=== PATIENT | male | born 1955 | race Caucasian/White ===

== ENCOUNTER 2017-11-18 10:20 | Day surgery (SDC) | payer BC ==
[~2017-11-18 10:20] MED LIST: Acetaminophen TAB* 325 MG PO PRN; Buffered Lidocaine 0.9% SYRIN* 5 ML/SYR SYRINGE INTRADERM ONE
[2017-11-18] MEDS ORDERED: Midazolam* 1 MG/ML 2 ML VIAL (2 MG) ONE (11:38)
[2017-11-18] MEDS ORDERED: fentaNYL* 50 MCG/ML 2 ML VIAL (100 MCG VIAL) ONE (11:38)
[2017-11-18] MEDS ORDERED: Lidocaine 1% MPF* 2 ML VIAL ONE (11:40)
[2017-11-18] MEDS ORDERED: Neomycin/Polymy/Dex OPHTH.OIN* 3.5 GM ONE (11:40)
[2017-11-18] MEDS ORDERED: Tetracaine 0.5% OPTH.SOL 4 ML* 1 DROP BTL ONE (11:40)
[2017-11-18] MEDS ORDERED: Tropicamide 1% OPTH.SOL* BTL ONE (11:40)
[2017-11-18] MEDS ORDERED: Phenylephrine 2.5% OPTH.SOL* 2 ML BTL ONE (11:40)
[2017-11-18] MEDS ORDERED: Ketorolac 0.5% OPHTH (NF) 0.5 % 5 ML BTL ONE (11:40)
[2017-11-18] MEDS ORDERED: Cyclopentolate 1% OPTH.SOL* 2 ML BTL ONE (11:40)
[2017-11-18] MEDS ORDERED: Metoprolol Tartrate IV* 1 MG/ML 5 ML VIAL ONE (11:49)
[2017-11-18] MEDS ORDERED: Carbachol 0.01% OPH.SOL* 1.5 ML OPHTH.SOLN ONE (12:16)
[2017-11-18 12:33] VITALS: BP 142/79
--- NOTE | 2017-11-18 15:08 | OP ---
DATE OF OPERATION/DATE OF DICTATION: 11/18/2017 - [facility] DATE OF : 1955. SURGEON: Dr. Prakash Paulino. PIPING ENGINEER: None. ANESTHESIA: Topical with intravenous sedation. PRE-OP DIAGNOSIS: Cataract, left eye. POST-OP DIAGNOSIS: Cataract, left eye. OPERATIVE PROCEDURE: Phacoemulsification and cataract extraction with posterior chamber intraocular lens implant, left eye. COMPLICATIONS: None. BLOOD LOSS: None. DESCRIPTION OF PROCEDURE: The patient was brought to the operating room and received a small amount of intravenous sedation. A drop of Tetracaine was placed in his left eye. He was prepped and draped in the usual sterile fashion for ophthalmic surgery and attention was directed to the left eye where a speculum was placed. A paracentesis was created at the 5 o'clock position and 0.1 cc of 1 percent preservative-free Lidocaine was injected into the anterior chamber followed by DisCoVisc. The eye was digitally stabilized while a 2.75 mm keratome was used to create a triplanar clear corneal incision at the 3 o'clock position. A continuous curvilinear capsulorrhexis was created with a cystotome and Utrata forceps. BSS on a cannula was used to hydrodissect the lens from the capsule. Phacoemulsification was performed in a [id number] technique to create four fragments which were removed. Residual cortical material was removed with irrigation and aspiration. DisCoVisc was used to inflate the capsular bag and an AUOOTO 16.5 diopter lens was folded and inserted into the capsular bag. DisCoVisc was removed using irrigation and aspiration. BSS on a cannula was used to hydrate the corneal stroma and seal the wound. At the end of the case the pupil was round and the lens was centered. The eye was of normal pressure and the wound was water tight. The speculum was removed and topical Maxitrol ointment was placed on the surface of the eye. The eye was closed, patched and shielded and the patient was sent to the recovery room in stable condition with post operative instructions and follow-up appointment given. [id number]/CPS #: [id number] MTDD
== END 2017-11-18 12:34 | disposition home or self-care (01) ==
LOC: OREAST 10:20
PROVIDERS: ATTEND Ophthalmology
DX: H25.12 Age-related nuclear cataract, left eye (principal); I10 Essential (primary) hypertension; Z87.891 Personal history of nicotine dependence; E78.5 Hyperlipidemia, unspecified
CPT/HCPCS: A9270-GY; J2250; J3010; J3490; V2632

== ENCOUNTER 2017-12-24 23:59 | Inpatient (IN) | payer BC ==
[2017-12-25] MEDS ORDERED: Tetan/Diph/Pertus SYR(Tdap)* 0.5 ML SYR(BOOSTRIX) use SYR IM ONE (00:12)
[2017-12-25 00:27] LABS: Hematocrit 44 % (42-52); Hemoglobin 15.3 g/dl (14.0-18.0); Mean Corpuscular HGB Conc 35 g/dl (31-36); Mean Corpuscular Hemoglobin 35 pg (27-31); Mean Corpuscular Volume 100 fL (80-94); Mean Platelet Volume 7 um3 (7.4-10.4); Platelet Count 347 10^3/ul (150-450); Red Blood Count 4.41 10^6/ul (4.0-5.4); Red Cell Distribution Width 14 % (10.5-15); White Blood Count 15.3 10^3/ul (3.5-10.8)
[2017-12-25 00:31] LABS: ABS Basophils 0 10^3/ul (0-0.2); ABS Eosinophils 0.1 10^3/ul (0-0.6); ABS Monocytes 0.9 10^3/ul (0-0.8); ABS Neutrophils 13.3 10^3/ul (1.5-7.7); ABS Nucleated RBC 0 10^3/ul; Eosinophil % 0.4 % (0-6); Lymphocyte % 6.4 % (25-47); Nucleated Red Blood Cells % 0
[2017-12-25 00:39] LABS: INR 0.97 (0.77-1.02)
[2017-12-25 00:41] LABS: EGFR Non-African American 88.6 (>60)
--- NOTE | 2017-12-25 00:56 | ED ---
Adult Trauma - HPI Summary HPI Summary: This 62-year-old male comes to the emergency department tonight by ambulance he is staying at his sister's home he turned the wrong way expecting to go into the bathroom but in fact fell down the stairs he does admit to drinking about 6 shots of alcohol tonight he believes he did not lose consciousness but he could not tell me exactly what time that the fall had happened he complains of right clavicle and left shoulder pain and forehead pain he does not complain of any neck pain chest pain abdominal pain pelvic pain or leg pain except his knees that both have abrasions on them - History of Current Complaint Chief Complaint: EDTraumaMultiple Stated Complaint: FALL Time Seen by Provider: 12/25/17 00:09 Hx Obtained From: Patient Mechanism of Injury: Fall - 1 flight of stairs Ambulatory at the Scene: N/A - Unknown if he is ambulatory at scene Loss of Consciousness: unsure Onset Severity: Moderate Current Severity: Moderate Pain Intensity: 1 Pain Scale Used: 0-10 Numeric Location: Other - He has pain in his right clavicle his left shoulder he does have some forehead pain where he does have a laceration and has abraded the skin off the front center of his forehead Aggravating Factor(s): Nothing Alleviating Factor(s): Nothing Related History: Anticoagulants - 81 mg aspirin, Alcohol Abuse - Doesn't just drinking alcohol daily states he usually does drink beer - Allergy/Home Medications Allergies/Adverse Reactions: Allergies Allergy/AdvReac Type Severity Reaction Status Date / Time MS Citalopram [From Celexa] Allergy Severe See Comment Verified 11/17/17 14:54 MS Hydrochlorothiazide Allergy Severe See Comment Verified 11/17/17 14:54 [Hydrochlorothiazide] MS Lisinopril [Lisinopril] AdvReac Intermediate Coughing Verified 11/18/17 11:06 PMH/Surg Hx/FS Hx/Imm Hx Previously Healthy: No Cardiovascular History: Reports: Hx Hypertension - controlled with meds, Other Cardiovascular Problems/Disorders - high cholesterol GI History: Reports: Hx Gastroesophageal Reflux Disease - ON MEDICATION FOR History: Reports: Other Problems/Disorders - prostate Sensory History: Reports: Hx Cataracts - left eye, Hx Contacts or Glasses - GLASSES Denies: Hx Hearing Aid Opthamlomology History: Reports: Hx Cataracts - left eye, Hx Contacts or Glasses - GLASSES Psychiatric History: Reports: Hx Anxiety - ON MEDICATION FOR - Cancer History Hx Chemotherapy: No - Surgical History Surgery Procedure, Year, and Place: REPAIR OF DETACHED RETINA - 01/2015-[facility] [place]. right eye cataract surgery with IOL and malyugin ring 2016 Hx Anesthesia Reactions: No - Immunization History Hx Pertussis Vaccination: No Immunizations Up to Date: No Infectious Disease History: No Infectious Disease History: Denies: Traveled Outside the [place] in Last 30 Days - Family History Known Family History: Positive: None - Social History Occupation: Retired Lives: Alone Alcohol Use: Daily Alcohol Amount: states he bring drinks beer daily and endorses having 6 mixed drink shots Hx Substance Use: Yes Substance Use Type: Reports: None Smoking Status (MU): Former Smoker Amount Used/How Often: 3/4 PPD X 25 YEARS Have You Smoked in the Last Year: No Review of Systems Constitutional: Negative Eyes: Negative ENT: Negative Cardiovascular: Negative Respiratory: Negative Gastrointestinal: Negative Genitourinary: Negative Positive: Arthralgia - pain left shoulder and right clavicle Skin: Other Positive: Other - multiple areas of skin abrasions face and nose both knees laceration with tissue avulsion inside the lower lip of his mouth his teeth are intact Neurological: Negative Psychological: Other Positive: Other - patient does have alcohol on breath All Other Systems Reviewed And Are Negative: Yes Physical Exam Triage Information Reviewed: Yes Vital Signs On Initial Exam: Initial Vitals Resp 12 12/25/ 00:08 Vital Signs Reviewed: Yes Appearance: Positive: Well-Appearing, Well-Nourished, Pain Distress - mild Skin: Positive: Warm, Skin Color Reflects Adequate Perfusion, Dry Head/Face: Positive: Other - Abrasion on the center of his forehead with a 4 cm last duration also has abrasions on his nose and has a skin avulsion inside of his mouth Eyes: Positive: Normal, EOMI, ODALYS, Conjunctiva Clear ENT: Positive: Normal ENT inspection, Hearing grossly normal, Pharynx normal, TMs normal, Uvula midline - Patient does havechipped front teeth but he does not report this from the accident as this is chronic for him. Negative: Nasal congestion, Nasal drainage, Tonsillar swelling, Tonsillar exudate, Trismus, Muffled voice, Hoarse voice, Dental tenderness, Sinus tenderness Neck: Positive: Supple, Nontender, No Lymphadenopathy, Other: - Cervical collar was placed by EMS for remain intact until CT is cleared Respiratory/Lung Sounds: Positive: Clear to Auscultation, Breath Sounds Present , Unable to speak in full sentences. Negative: Tracheal Deviation Cardiovascular: Positive: Normal, Pulses are Symmetrical in both Upper and Lower Extremities, S1, S2 Abdomen Description: Positive: Nontender, No Organomegaly, Soft. Negative: CVA Tenderness (R), CVA Tenderness (L), Distended, Guarding, Peritoneal Signs Bowel Sounds: Positive: Present Musculoskeletal: Positive: Pain @ - Right clavicle left shoulder both knees Neurological: Positive: Normal, Sensory/Motor Intact, Facial Symmetry, Speech Normal. Negative: Receptive Aphasia, Expressive Aphasia, Slurred Speech Psychiatric: Positive: Normal AVPU Assessment: Alert - [place] Coma Scale Best Eye Response: 4 - Spontaneous Best Motor Response: 6 - Obeys Commands Best Verbal Response: 5 - Oriented Coma Scale Total: 15 Diagnostics - Vital Signs Vital Signs Temp Pulse Resp BP Pulse Ox 12/25/17 00:30 77 15 131/66 97 12/25/17 00:10 99.2 F 82 15 118/63 98 12/25/17 00:08 12 - Laboratory Lab Results: Lab Results 12/25/17 12/25/17 12/25/17 Range/Units 00:14 00:14 00:14 WBC 15.3 H (3.5-10.8) 10^3/ul RBC 4.41 (4.0-5.4) 10^6/ul Hgb 15.3 (14.0-18.0) g/dl Hct 44 (42-52) % MCV 100 H (80-94) fL MCH 35 H (27-31) pg MCHC 35 (31-36) g/dl RDW 14 (10.5-15) % Plt Count 347 (150-450) 10^3/ul MPV 7 L (7.4-10.4) um3 Neut % (Auto) 86.8 H (38-83) % Lymph % (Auto) 6.4 L (25-47) % [place] % (Auto) 6.2 (0-7) % Eos % (Auto) 0.4 (0-6) % Baso % (Auto) 0.2 (0-2) % Absolute Neuts (auto) 13.3 H (1.5-7.7) 10^3/ul Absolute Lymphs (auto) 1.0 (1.0-4.8) 10^3/ul Absolute Monos (auto) 0.9 H (0-0.8) 10^3/ul Absolute Eos (auto) 0.1 (0-0.6) 10^3/ul Absolute Basos (auto) 0 (0-0.2) 10^3/ul Absolute Nucleated RBC 0 10^3/ul Nucleated RBC % 0 INR (Anticoag Therapy) 0.97 (0.77-1.02) Sodium 139 (133-145) mmol/L Potassium 3.9 (3.5-5.0) mmol/L Chloride 104 (101-111) mmol/L Carbon Dioxide 27 (22-32) mmol/L Anion Gap 8 (2-11) mmol/L BUN 10 (6-24) mg/dL Creatinine 0.87 (0.67-1.17) mg/dL Est GFR ( Amer) 114.0 (>60) Est GFR (Non-Af Amer) 88.6 (>60) BUN/Creatinine Ratio 11.5 (8-20) Glucose 101 H (70-100) mg/dL Lactic Acid (0.5-2.0) mmol/L Calcium 9.4 (8.6-10.3) mg/dL Total Bilirubin 0.40 (0.2-1.0) mg/dL AST 34 (13-39) U/L ALT 22 (7-52) U/L Alkaline Phosphatase 65 (34-104) U/L Troponin I 0.00 (<0.04) ng/mL Total Protein 7.5 (6.4-8.9) g/dL Albumin 4.2 (3.2-5.2) g/dL Globulin 3.3 (2-4) g/dL Albumin/Globulin Ratio 1.3 (1-3) Amylase 63 (29-103) U/L Serum Alcohol 187 H (<10) mg/dL 12/25/17 Range/Units 00:14 WBC (3.5-10.8) 10^3/ul RBC (4.0-5.4) 10^6/ul Hgb (14.0-18.0) g/dl Hct (42-52) % MCV (80-94) fL MCH (27-31) pg MCHC (31-36) g/dl RDW (10.5-15) % Plt Count (150-450) 10^3/ul MPV (7.4-10.4) um3 Neut % (Auto) (38-83) % Lymph % (Auto) (25-47) % [place] % (Auto) (0-7) % Eos % (Auto) (0-6) % Baso % (Auto) (0-2) % Absolute Neuts (auto) (1.5-7.7) 10^3/ul Absolute Lymphs (auto) (1.0-4.8) 10^3/ul Absolute Monos (auto) (0-0.8) 10^3/ul Absolute Eos (auto) (0-0.6) 10^3/ul Absolute Basos (auto) (0-0.2) 10^3/ul Absolute Nucleated RBC 10^3/ul Nucleated RBC % INR (Anticoag Therapy) (0.77-1.02) Sodium (133-145) mmol/L Potassium (3.5-5.0) mmol/L Chloride (101-111) mmol/L Carbon Dioxide (22-32) mmol/L Anion Gap (2-11) mmol/L BUN (6-24) mg/dL Creatinine (0.67-1.17) mg/dL Est GFR ( Amer) (>60) Est GFR (Non-Af Amer) (>60) BUN/Creatinine Ratio (8-20) Glucose (70-100) mg/dL Lactic Acid 3.0 H* (0.5-2.0) mmol/L Calcium (8.6-10.3) mg/dL Total Bilirubin (0.2-1.0) mg/dL AST (13-39) U/L ALT (7-52) U/L Alkaline Phosphatase (34-104) U/L Troponin I (<0.04) ng/mL Total Protein (6.4-8.9) g/dL Albumin (3.2-5.2) g/dL Globulin (2-4) g/dL Albumin/Globulin Ratio (1-3) Amylase (29-103) U/L Serum Alcohol (<10) mg/dL Result Diagrams: 12/25/17 00:14 12/25/17 00:14 Diagnostic Studies Comment: 1. Brain CT-results a brain CT- no intercranial hemorrhage. No skull fracture scalp laceration as indicated in assessment. [address] shows no fractures Lab Statement: Any lab studies that have been ordered have been reviewed, and results considered in the medical decision making process. Re-Evaluation - Re-Evaluation First Eval Change: Unchanged - no change in assessment, patient is in CT scan, case reviewed with Dr. Montero Second Eval Change: Unchanged - Patient at 30 in bed complaining of left shoulder pain Zofran and 2 mg morphine given report given to Dr. montero Adult Trauma Course/Dx - Diagnoses Provider Diagnoses: Nasal fracture, Trauma - Physician Notifications Discussed Care Of Patient With: Angely Montero - report given at 2:20 Discharge - Discharge Plan Condition: Guarded Disposition: OTHER Discharge Disposition Comment: report given to Dr. Montero at 2;20 Referrals: Fabio Ernst MD [Primary Care Provider] -
[2017-12-25] MEDS ORDERED: Morphine INJ* 2 MG/ML 1 ML CARPUJECT IV ONE (01:58)
[2017-12-25] MEDS ORDERED: Ondansetron INJ* 2 MG/ML VIAL IV ONE ×2 (01:58→04:00)
[2017-12-25] MEDS ORDERED: NS 0.9% 1000 ML* 2,000 ML IV ONE (03:14)
[2017-12-25] MEDS ORDERED: Lidocaine 2% EPI 1:200000 MPF* 20 ML VIAL ONE (03:56)
[2017-12-25] MEDS ORDERED: HYDROmorphone INJ* 2 MG/ML CARPUJECT SYRINGE IV SLOW PU ONE (04:00)
[2017-12-25] MEDS ORDERED: LORazepam TAB(*) 1 MG PO ONE (05:34)
--- NOTE | 2017-12-25 05:36 | ED ---
Edil August Stephanie, scribed for Angely Montero MD on 12/25/17 at 0522 . Progress - Progress Note Progress Note: Xray L shoulder: no fracture. Bilateral Knee XRay: no fracture. R clavicle XRay : no fracture. Pelvis XRay: no fracture. CXR reveals 22 mm *15 mm mass in the left lower lobe. Pending official reading. - Results/Orders Results/Orders: CT Maxillofacial reveals:Mildly depressed acute appearing nasal bridge fracture. Questionable old left maxillary sinus fracture. Dense left maxillary sinus contents could represent blood from trauma, or chronic or fungal sinusitis. Re-Evaluation - Re-Evaluation First Eval Change: Unchanged - no change in assessment, patient is in CT scan, case reviewed with Dr. Montero Second Eval Change: Unchanged - Patient at 30 in bed complaining of left shoulder pain Zofran and 2 mg morphine given report given to Dr. montero Course/Dx - Course Course Of Treatment: Procedure note: Lower lip laceration repair:Pt has 3 cm long 1.5 cm wide lac at the middle of the mucosa of the lower lip extending from the vrmilian boarder to the gum line. Repair using lidocain 2 % with epi. The laceration was closed in two layers. Inner layer was closed with 4 stitches. The outer layer was closed with 4 stitches. We did use Polizorb 4-0 and 3-0. There was a good alignment and hemostasis. Forehead laceration: about 3 cm lac verticle in the middle of the forehead. Repair: Closed in 2 layers. Inner layer closed using polizorb 3-0. Outer layer closed using proline 4-0. Inner layer had 3 stitches. Outerlayer had 6 stitches. Good alignment and hemostasis. ED physician reviewed the pt's his normal xray results. ED physician explained finding of CXR which showed a mass according to the reading. The pt was advised to folow up with his PCP to address the lung mass and to make sure to rule out malignancy. The pt understands and agrees. Disposition: discharge, Condition: Stable - Diagnoses Provider Diagnoses: Nasal fracture, Trauma, Lip laceration, Forehead laceration, Multiple contusions, Lung mass The documentation as recorded by the Edil ansari Stephanie accurately reflects the service I personally performed and the decisions made by Kylah orosco Abdul, MD.
[2017-12-25] MEDS ORDERED: Thiamine IV* 100 MG, Folic Acid IV* 1 MG, Multiple Vitamin IV ADULT* 10 ML in NS 0.9% 1... IV ONE (06:16)
--- NOTE | 2017-12-25 06:29 | ED ---
Edil August Stephanie, scribed for Angely Montero MD on 12/25/17 at 0627 . Progress - Progress Note Progress Note: Xray L shoulder: no fracture. Bilateral Knee XRay: no fracture. R clavicle XRay : no fracture. Pelvis XRay: no fracture. CXR reveals 22 mm *15 mm mass in the left lower lobe. Pending official reading. At 06:24: Pt was helped by staff from bed to wheelchair. The pt is tremulous and had trouble ambulating.The pt was returned into the stretcher and re-evaluated. His neuro exam is intact on the stretcher except for L UE dysmetria. Pt will be admitted for further evaluation. ED physician discussed with Dr. Guerra who accepts the pt for admission. - Results/Orders Results/Orders: CT Maxillofacial reveals:Mildly depressed acute appearing nasal bridge fracture. Questionable old left maxillary sinus fracture. Dense left maxillary sinus contents could represent blood from trauma, or chronic or fungal sinusitis. Re-Evaluation - Re-Evaluation First Eval Change: Unchanged - no change in assessment, patient is in CT scan, case reviewed with Dr. Montero Second Eval Change: Unchanged - Patient at 30 in bed complaining of left shoulder pain Zofran and 2 mg morphine given report given to Dr. montero Course/Dx - Course Course Of Treatment: Procedure note: Lower lip laceration repair:Pt has 3 cm long 1.5 cm wide lac at the middle of the mucosa of the lower lip extending from the vrm[place] boarder to the gum line. Repair using lidocain 2 % with epi. The laceration was closed in two layers. Inner layer was closed with 4 stitches. The outer layer was closed with 4 stitches. We did use Polizorb 4-0 and 3-0. There was a good alignment and hemostasis. Forehead laceration: about 3 cm lac verticle in the middle of the forehead. Repair: Closed in 2 layers. Inner layer closed using polizorb 3-0. Outer layer closed using proline 4-0. Inner layer had 3 stitches. Outerlayer had 6 stitches. Good alignment and hemostasis. ED physician reviewed the pt's his normal xray results. ED physician explained finding of CXR which showed a mass according to the reading. The pt was advised to folow up with his PCP to address the lung mass and to make sure to rule out malignancy. The pt understands and agrees. Disposition: discharge, Condition: Stable - Diagnoses Provider Diagnoses: Nasal fracture, Trauma, Lip laceration, Forehead laceration, Multiple contusions, Lung mass, difficulty ambulating The documentation as recorded by the Edil ansari Stephanie accurately reflects the service I personally performed and the decisions made by me, Angely Montero MD.
[2017-12-25 06:34] LABS: Urine Appearance Clear; Urine Blood 1+ (Negative); Urine Color Yellow; Urine Ketones 1+ (Negative); Urine Protein Negative (Negative); Urine Specific Gravity 1.016 (1.010-1.030); Urine Urobilinogen Negative (Negative)
[2017-12-25] MEDS ORDERED: Al Hydrox/Mg Hydrox/Simet LIQ* 30 ML UDC PO PRN (07:43)
[2017-12-25] MEDS ORDERED: Ondansetron INJ* 2 MG/ML VIAL IV PRN (07:43)
[2017-12-25] MEDS ORDERED: Thiamine IV* 100 MG/ML 2 ML VIAL IM ONE (07:47)
[2017-12-25] MEDS ORDERED: LORazepam INJ* 2 MG/ML 1 ML VIAL IV PUSH SCH (08:00)
[2017-12-25] MEDS ORDERED: Thiamine IV* 100 MG/ML 2 ML VIAL IV SCH (08:00)
--- NOTE | 2017-12-25 08:13 | RAD ---
HISTORY: Fall, head trauma COMPARISONS: None TECHNIQUE: Multiple contiguous axial CT scans were obtained of the head without intravenous contrast. FINDINGS: HEMORRHAGE/INFARCT: There is no hemorrhage or acute infarct. MASSES/SHIFT: There is no mass or shift. EXTRA-AXIAL SPACES: There are no extra-axial fluid collections. SULCI AND VENTRICLES: The sulci and ventricles are normal in size and position for the patient's stated age. CEREBRUM: There are no focal parenchymal abnormalities. BRAINSTEM: There are no focal parenchymal abnormalities. CEREBELLUM: There are no focal parenchymal abnormalities. VESSELS: The vessels are grossly normal. PARANASAL SINUSES: There is opacification of the left maxillary sinus with an air-fluid. ORBITS: The orbits are unremarkable. BONES AND SOFT TISSUE: No bone or soft tissue abnormalities are noted. OTHER: None IMPRESSION: 1. NO ACUTE INTRACRANIAL PATHOLOGY. 2. THERE IS AN AIR-FLUID LEVEL WITHIN THE LEFT MAXILLARY SINUS WHICH MAY INDICATE THE PRESENCE OF FACIAL FRACTURE GIVEN THE HISTORY OF TRAUMA. RECOMMEND CORRELATION WITH CT OF THE FACE.
--- NOTE | 2017-12-25 08:17 | RAD ---
INDICATION: Fall COMPARISON: Chest x-ray dated July 20, 2008 TECHNIQUE: Single AP view of the chest was obtained. FINDINGS: The heart and mediastinum exhibit normal size and contour. The lungs are grossly clear. There is no evidence of a large pleural effusion. There are chronic appearing left-sided rib fractures. IMPRESSION: No radiographic evidence for acute cardiopulmonary abnormality on this single AP view chest x-ray.
--- NOTE | 2017-12-25 08:18 | RAD ---
INDICATION: Trauma. COMPARISON: There are no prior studies available for comparison. TECHNIQUE: Contiguous axial sections were obtained from the skull base through the T2 vertebra. Images were reconstructed in the sagittal and coronal planes. FINDINGS: There is stranding of the cervical spine. There is mild retrolisthesis of C3 relative to C4, C4 relative to C5 which appears to be degenerative in origin. No fracture is seen. No prevertebral soft tissue swelling is noted. At the C2-C3 level there is a small central disc protrusion. No significant spinal canal or neural foraminal narrowing is seen. At the C3-C4 level there is posterior uncinate process spurring. There is mild to moderate spinal canal narrowing and moderate bilateral neural foraminal narrowing. At the C4-C5 level there is moderate to severe posterior uncinate process spurring and hypertrophic changes within the facet joints. There is moderate to severe spinal canal narrowing and moderate to severe bilateral neural foraminal narrowing. At C5-C6 level there is moderate posterior uncinate process spurring causing moderate spinal canal narrowing. There is moderate to severe bilateral neural foraminal narrowing. At the C6-C7 level there is [id number] posterior uncinate process spurring. There is mild spinal canal narrowing and mild to moderate bilateral neural foraminal narrowing. IMPRESSION: 1. NO EVIDENCE FOR FRACTURE. 2. MODERATE TO SEVERE CERVICAL SPONDYLOSIS.
--- NOTE | 2017-12-25 08:20 | RAD ---
INDICATION: Pain after a fall TECHNIQUE: An AP view of the pelvis was obtained. FINDINGS: The bones are in normal alignment. No fracture is seen. Joint spaces appear maintained. IMPRESSION: NO EVIDENCE FOR FRACTURE. IF THE PATIENT'S SYMPTOMS PERSIST RECOMMEND FOLLOW-UP IMAGING.
--- NOTE | 2017-12-25 08:20 | RAD ---
HISTORY: Fall, injury right clavicle COMPARISONS: None VIEWS: 2, frontal and frontal oblique views of the right clavicle FINDINGS: BONE DENSITY: Normal. BONES: There is no displaced fracture. JOINTS: There is mild osteoarthritis of the right AC joint. ALIGNMENT: There is no dislocation. SOFT TISSUES: Unremarkable. OTHER FINDINGS: Degenerative changes are noted of the cervical spine. IMPRESSION: NO ACUTE OSSEOUS INJURY. IF SYMPTOMS PERSIST, RECOMMEND REPEAT IMAGING.
--- NOTE | 2017-12-25 08:24 | RAD ---
Indication: LEFT shoulder pain post fall. Comparison: July 20, 2008 chest radiograph. Technique: Internal rotation AP, external rotation Grashey, scapular Y, axillary views LEFT shoulder Report: Normal acromioclavicular and glenohumeral joint alignment. Negative for fracture. Mild osteophytosis and subchondral sclerosis as well as capsular hypertrophy at the acromioclavicular joint. Unremarkable soft tissue contours. Multiple healed LEFT rib fractures noted. IMPRESSION: No radiographic evidence for traumatic LEFT shoulder injury. Mild acromioclavicular joint osteoarthritis.
--- NOTE | 2017-12-25 08:25 | RAD ---
INDICATION: Bilateral knee pain after a fall COMPARISON: None TECHNIQUE: 4 view radiograph of each knee. FINDINGS: The visualized bones are well-corticated and properly aligned. The joint spaces are properly maintained. There is no radiographic evidence of joint effusion. There is no acute fracture, dislocation or other focal bony abnormality. IMPRESSION: Normal radiograph of the bilateral knees as described above. If the patient's symptoms persist, follow-up imaging is recommended.
--- NOTE | 2017-12-25 08:34 | RAD ---
INDICATION: Facial trauma. COMPARISON: There are no prior studies available for comparison. TECHNIQUE: Contiguous axial sections of the axial images of the facial bones were obtained and reconstructed in the coronal and sagittal planes. FINDINGS: There is soft tissue swelling and air within the scalp anterior to the frontal bones most consistent with a laceration type injury. The hankins of the orbits appear intact. There is a fracture of the posterior lateral wall of the left maxillary sinus, age indeterminate. The zygomatic arches appear intact. There is no evidence for a fracture of the mandible. There appears to be a nondisplaced fracture of the nasal bridge, age indeterminate. The nose is deviated toward the left side. There is moderate to severe deviation of the nasal septum toward the right side. The pterygoid plates appear intact. There is mucosal thickening within the right maxillary and ethmoid air cells and near complete opacification of the left maxillary sinus. There is periapical disease involving multiple teeth in the maxilla and mandible. IMPRESSION: 1. SOFT TISSUE SWELLING AND AIR IN THE SCALP ANTERIOR TO THE FRONTAL BONES CONSISTENT WITH A LACERATION TYPE INJURY. 2. NONDISPLACED FRACTURE OF THE NASAL BRIDGE, AGE INDETERMINATE. 3. NONDISPLACED FRACTURE OF THE POSTERIOR LATERAL WALL OF THE LEFT MAXILLARY SINUS, AGE INDETERMINATE. 4. DIFFUSE DENTAL DISEASE.
[2017-12-25] MEDS ORDERED: Multivitamins/Minerals TAB PO SCH (09:00)
[2017-12-25] MEDS ORDERED: Thiamine TAB* 100 MG TAB PO SCH (09:00)
[2017-12-25] MEDS: Senna TAB PO SCH ×2 (09:45→21:20)
[2017-12-25] MEDS: Docusate CAP* 100 MG PO SCH ×2 (09:45→21:20)
[2017-12-25] MEDS: LORazepam TAB(*) 1 MG PO SCH ×3 (09:45→23:46)
[2017-12-25] MEDS: Omeprazole CAP* 20 MG PO SCH (09:45)
[2017-12-25] MEDS: Valsartan TAB* 160 MG PO SCH (09:45)
[2017-12-25] MEDS: Ascorbic Acid TAB* 500 MG PO SCH (09:45)
[2017-12-25] MEDS: Aspirin EC Low Dose* 81 MG TAB.EC PO SCH (09:45)
[2017-12-25] MEDS: buPROPion SR TAB.SR* 100 MG PO SCH (09:45)
[2017-12-25] MEDS: NS 0.9% 1000 ML* 1,000 ML IV SCH ×2 (09:47→16:55)
[2017-12-25] MEDS: Enoxaparin(*) 40 MG/0.4 ML SYR SUBCUT SCH (09:47)
[2017-12-25] MEDS: Morphine INJ* 2 MG/ML 1 ML CARPUJECT IV PRN ×2 (15:21→21:59)
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
[2017-12-25] MEDS: Thiamine IV* 500 MG in NS 0.9% 250 ML* 250 ML IV SCH (19:21)
[2017-12-25] MEDS: Atorvastatin* 10 MG TAB PO SCH (21:20)
[2017-12-25] MEDS: Metoprolol Succinate XL TAB* 50 MG PO SCH (21:20)
[2017-12-26] MEDS: NS 0.9% 1000 ML* 1,000 ML IV SCH ×3 (01:12→17:35)
[2017-12-26] MEDS: Thiamine IV* 500 MG in NS 0.9% 250 ML* 250 ML IV SCH ×3 (03:22→21:58)
[2017-12-26 05:05] LABS: ABS Basophils 0.1 10^3/ul (0-0.2); ABS Eosinophils 0 10^3/ul (0-0.6); ABS Lymphocytes 1.6 10^3/ul (1.0-4.8); ABS Monocytes 1.3 10^3/ul (0-0.8); ABS Neutrophils 9.3 10^3/ul (1.5-7.7); ABS Nucleated RBC 0 10^3/ul; Eosinophil % 0.2 % (0-6); Hematocrit 38 % (42-52); Hemoglobin 12.8 g/dl (14.0-18.0); Lymphocyte % 13.1 % (25-47); Mean Corpuscular HGB Conc 34 g/dl (31-36); Mean Corpuscular Hemoglobin 34 pg (27-31); Mean Corpuscular Volume 99 fL (80-94); Mean Platelet Volume 7 um3 (7.4-10.4); Nucleated Red Blood Cells % 0; Platelet Count 284 10^3/ul (150-450); Red Blood Count 3.82 10^6/ul (4.0-5.4); Red Cell Distribution Width 13 % (10.5-15); White Blood Count 12.3 10^3/ul (3.5-10.8)
[2017-12-26 05:19] LABS: EGFR Non-African American 138.7 (>60)
[2017-12-26] MEDS: Omeprazole CAP* 20 MG PO SCH (08:44)
[2017-12-26] MEDS: LORazepam INJ* 2 MG/ML 1 ML VIAL IV PUSH SCH ×6 (08:44→21:52)
[2017-12-26] MEDS: Ascorbic Acid TAB* 500 MG PO SCH (08:44)
[2017-12-26] MEDS: buPROPion SR TAB.SR* 100 MG PO SCH (08:44)
[2017-12-26] MEDS: Valsartan TAB* 160 MG PO SCH (08:44)
[2017-12-26] MEDS: Enoxaparin(*) 40 MG/0.4 ML SYR SUBCUT SCH (08:44)
[2017-12-26] MEDS: Multivitamins/Minerals TAB PO SCH (08:44)
[2017-12-26] MEDS: Folic Acid TAB* 1 MG PO SCH (08:44)
[2017-12-26] MEDS: Docusate CAP* 100 MG PO SCH ×2 (08:44→20:35)
[2017-12-26] MEDS: Senna TAB PO SCH ×2 (08:44→20:35)
[2017-12-26] MEDS: Aspirin EC Low Dose* 81 MG TAB.EC PO SCH (08:44)
[2017-12-26] MEDS: LORazepam TAB(*) 1 MG PO SCH (12:03)
[2017-12-26] MEDS: Morphine INJ* 2 MG/ML 1 ML CARPUJECT IV PRN (13:23)
--- NOTE | 2017-12-26 14:02 | PN ---
Subjective Date of Service: 12/26/17 Interval History: Patient seen and examined at bedside. Denies fever, chills, shortness of breath , chest discomfort, N/V/D. Pt wants to go home and we discussed that he needed to stay here as he was unable to ambulate. Pt intermittently agitated and restless, Pt able to be redirected. Tele: Sinus rhythm, rate 60-80's Family History: Unchanged from Admission Social History: Unchanged from Admission Past Medical History: Unchanged from Admission Objective Active Medications: Al Hydrox/Mg Hydrox/Simethicone (Maalox Plus*) 30 ml PO Q6H PRN Reason: INDIGESTION Ascorbic Acid (Vitamin C Tab*) 500 mg PO QAM [facility] Aspirin (Aspirin Ec Low Dose*) 81 mg PO DAILY [facility] Atorvastatin Calcium (Lipitor*) 10 mg PO BEDTIME [facility] Bupropion HCl (Wellbutrin Sr Tab*) 100 mg PO QAM [facility] Docusate Sodium (Colace Cap*) 100 mg PO BID [facility] Enoxaparin Sodium (Lovenox(*)) 40 mg SUBCUT Q24H [facility] Folic Acid (Folvite Tab*) 1 mg PO DAILY [facility] Sodium Chloride (Ns 0.9% 1000 Ml*) 1,000 mls @ 150 mls/hr IV PER RATE [facility]AA[facility] Thiamine HCl 500 mg/ Sodium (Chloride) 255 mls @ 255 mls/hr IV Q8H [facility] Lorazepam (Ativan Tab(*)) 2 mg PO Q12H [facility] Stop: 12/28/17 04:59 Lorazepam (Ativan Inj*) 0 - 3 mg IV PUSH .PER [facility] PROTOCOL ISAAK Metoprolol Succinate (Toprol Xl Tab*) 50 mg PO BEDTIME ISAAK Morphine Sulfate (Morphine Inj (Syringe)*) 2 mg IV Q4H PRN Reason: PAIN Multivitamins/Minerals (Theragran/Minerals Tab*) 1 tab PO DAILY [facility] Omeprazole (Prilosec Cap*) 20 mg PO DAILY [facility] Ondansetron HCl (Zofran Inj*) 4 mg IV Q4H PRN Reason: NAUSEA/VOMITING Senna (Senokot Tab*) 1 tab PO BID [facility] Valsartan (Diovan Tab*) 160 mg PO QAM [facility] Vital Signs - 8 hr 12/26/17 12/26/17 12/26/17 08:00 08:44 10:14 Temperature 98.9 F 98.8 F Pulse Rate 64 68 Respiratory 20 18 20 Rate Blood Pressure 153/72 150/75 (mmHg) O2 Sat by Pulse 100 100 Oximetry 12/26/17 12/26/17 12/26/17 10:29 12:01 12:03 Temperature Pulse Rate Respiratory 20 18 18 Rate Blood Pressure (mmHg) O2 Sat by Pulse Oximetry 12/26/17 12/26/17 12/26/17 12:06 13:23 13:37 Temperature 98.1 F Pulse Rate 77 Respiratory 18 18 18 Rate Blood Pressure 149/77 (mmHg) O2 Sat by Pulse 100 Oximetry Oxygen Devices in Use Now: None Appearance: NAD, laying in bed Eyes: - - Ecchymosis and swelling to bilateral eye upper eye lids Ears/Nose/Mouth/Throat: Mucous Membranes Moist, - - Poor dentation. Lower lip swelling Respiratory: Symmetrical Chest Expansion and Respiratory Effort, Clear to Auscultation Cardiovascular: NL Sounds; No Murmurs; No JVD, RRR Abdominal: NL Sounds; No Tenderness; No Distention Extremities: No Edema Skin: - - Multiple abrasions with dressings in place. Neurological: NL Muscle Strength and Tone, - - Alert and Oriented to person and place Lines/Tubes/Other Access: Clean, Dry and Intact Peripheral IV - site benign Nutrition: Taking PO's Result Diagrams: 12/26/17 04:52 12/26/17 04:52 Additional Lab and Data: Assess/Plan/Problems-Billing Assessment: Mr. Kelly is a 62 yo male with PMH significant for HTN and alcohol abuse who presented to the emergency room with complaints of a fall down stair and difficulty with ambulation. - Patient Problems (1) Alcohol withdrawal Code(s): F10.239 - ALCOHOL DEPENDENCE WITH WITHDRAWAL, UNSPECIFIED SNOMED Code (s): 353836457 Comment: - WAM score 3-10 - Social work consult - Continue ativan taper, PRN ativan, thiamin, folate and multivitamin (2) Gait abnormality Code(s): R26.9 - UNSPECIFIED ABNORMALITIES OF GAIT AND MOBILITY SNOMED Code(s) : 30935581 Comment: - PT eval pending - Unable to have an MRI due to metallic FB in left orbit - Suspect Wernicke encephalopathy - Consider neurology consult if he contines to have ataxia after PT eval in the AM - Neuro checks Q4H (3) Facial fracture Code(s): S02.92XA - UNSP FRACTURE OF FACIAL BONES, INIT FOR CLOS FX SNOMED Code(s): 46146519 Comment: - Nondisplaced fracture of the nasal bridge and nondisplaced fracture of the posterior lateral wall of the left maxilary sinus - Follow up with ENT outpatient next week (Dr. Lino's office will call 4S on Friday to see if Pt is still here) (4) Leukocytosis Code(s): D72.829 - ELEVATED WHITE BLOOD CELL COUNT, UNSPECIFIED SNOMED Code(s) : 023362975 Comment: - Improving - Chest xray and UA negative - Suspect stress response from fall - Will recheck labs in the AM (5) HTN (hypertension) Code(s): I10 - ESSENTIAL (PRIMARY) HYPERTENSION SNOMED Code(s): 14220427 Comment: - SBP 130-150's - Continue valsartan and metoprolol (6) Tobacco abuse Code(s): Z72.0 - TOBACCO USE SNOMED Code(s): 058764574 Comment: - Start nicotine replacement (7) DVT prophylaxis Code(s): UUR1910 - SNOMED Code(s): 035426928 Comment: - Lovenox (8) Full code status Code(s): Z78.9 - OTHER SPECIFIED HEALTH STATUS SNOMED Code(s): 083765349 Status and Disposition: Inpatient. Discharge to home when medically stable.
[2017-12-26] MEDS ORDERED: Mouth Piece, Nicotine* 1 EACH CARTRIDGE INH PRN (18:32)
[2017-12-26] MEDS ORDERED: Nicotine Inhaler* 10 MG AMP INH PRN (18:32)
[2017-12-26] MEDS ORDERED: LORazepam INJ* 2 MG/ML 1 ML VIAL IV PUSH SCH (19:35)
[2017-12-26] MEDS: Metoprolol Succinate XL TAB* 50 MG PO SCH (20:34)
[2017-12-26] MEDS: Atorvastatin* 10 MG TAB PO SCH (20:35)
[2017-12-26] MEDS: Nicotine Patch Removal NOTE FOLLOW UP SCH (20:37)
[2017-12-26] MEDS ORDERED: Ziprasidone IM INJ* 20 MG/ML VIAL IM ONE (22:25)
[2017-12-27] MEDS: LORazepam INJ* 2 MG/ML 1 ML VIAL IV PUSH SCH ×10 (00:36→22:35)
[2017-12-27] MEDS: Docusate CAP* 100 MG PO SCH ×3 (00:38→20:14)
[2017-12-27] MEDS: Metoprolol Succinate XL TAB* 50 MG PO SCH ×2 (00:39→20:13)
[2017-12-27] MEDS: Atorvastatin* 10 MG TAB PO SCH ×2 (00:39→20:14)
[2017-12-27] MEDS: Senna TAB PO SCH ×3 (00:39→20:15)
[2017-12-27] MEDS: LORazepam TAB(*) 1 MG PO SCH ×3 (01:52→19:31)
[2017-12-27] MEDS: NS 0.9% 1000 ML* 1,000 ML IV SCH ×2 (01:58→10:04)
[2017-12-27] MEDS: Thiamine IV* 500 MG in NS 0.9% 250 ML* 250 ML IV SCH ×3 (03:29→20:09)
[2017-12-27 05:55] LABS: ABS Basophils 0 10^3/ul (0-0.2); ABS Eosinophils 0 10^3/ul (0-0.6); ABS Lymphocytes 1.1 10^3/ul (1.0-4.8); ABS Monocytes 1.1 10^3/ul (0-0.8); ABS Nucleated RBC 0 10^3/ul; Eosinophil % 0.3 % (0-6); Hematocrit 38 % (42-52); Hemoglobin 13.3 g/dl (14.0-18.0); Lymphocyte % 10.6 % (25-47); Mean Corpuscular HGB Conc 35 g/dl (31-36); Mean Corpuscular Hemoglobin 35 pg (27-31); Mean Corpuscular Volume 100 fL (80-94); Mean Platelet Volume 7 um3 (7.4-10.4); Nucleated Red Blood Cells % 0; Platelet Count 264 10^3/ul (150-450); Red Blood Count 3.83 10^6/ul (4.0-5.4); Red Cell Distribution Width 14 % (10.5-15); White Blood Count 10.2 10^3/ul (3.5-10.8)
[2017-12-27] MEDS: Nicotine PATCH 21 MG/24 HR* PATCH TRANSDERM SCH (09:03)
[2017-12-27] MEDS: Multivitamins/Minerals TAB PO SCH (09:05)
[2017-12-27] MEDS: Omeprazole CAP* 20 MG PO SCH (09:06)
[2017-12-27] MEDS: Folic Acid TAB* 1 MG PO SCH (09:06)
[2017-12-27] MEDS: Aspirin EC Low Dose* 81 MG TAB.EC PO SCH (09:06)
[2017-12-27] MEDS: Valsartan TAB* 160 MG PO SCH (09:06)
[2017-12-27] MEDS: Ascorbic Acid TAB* 500 MG PO SCH (09:06)
[2017-12-27] MEDS: Enoxaparin(*) 40 MG/0.4 ML SYR SUBCUT SCH (09:07)
[2017-12-27] MEDS: buPROPion SR TAB.SR* 100 MG PO SCH (10:09)
--- NOTE | 2017-12-27 16:46 | PN ---
Subjective Date of Service: 12/27/17 Interval History: received iv geodon overnight. still requiring ativan IV per [facility] protocol. his brother is at the bedside today. Matteo recognizes him. He also recognizes me. he says he feels good today, just shaky. no hallucinations, no pain, no anxiety , nausea, or vomiting. Family History: Unchanged from Admission Social History: Unchanged from Admission Past Medical History: Unchanged from Admission Objective Active Medications: Al Hydrox/Mg Hydrox/Simethicone (Maalox Plus*) 30 ml PO Q6H PRN PRN Reason: INDIGESTION Ascorbic Acid (Vitamin C Tab*) 500 mg PO QAM [facility] Last Admin: 12/27/17 09:06 Dose: 500 mg Aspirin (Aspirin Ec Low Dose*) 81 mg PO DAILY [facility] Last Admin: 12/27/17 09:06 Dose: 81 mg Atorvastatin Calcium (Lipitor*) 10 mg PO BEDTIME [facility] Last Admin: 12/27/17 00:39 Dose: Not Given Bupropion HCl (Wellbutrin Sr Tab*) 100 mg PO QAM [facility] Last Admin: 12/27/17 10:09 Dose: 100 mg Device (Nicotine Mouth Piece*) 1 each INH .USE WITH NICOTROL PRN PRN Reason: CRAVING Docusate Sodium (Colace Cap*) 100 mg PO BID [facility] Last Admin: 12/27/17 10:09 Dose: 100 mg Enoxaparin Sodium (Lovenox(*)) 40 mg SUBCUT Q24H [facility] Last Admin: 12/27/17 09:07 Dose: 40 mg Folic Acid (Folvite Tab*) 1 mg PO DAILY [facility] Last Admin: 12/27/17 09:06 Dose: 1 mg Sodium Chloride (Ns 0.9% 1000 Ml*) 1,000 mls @ 150 mls/hr IV PER RATE [facility] Last Admin: 12/27/17 10:04 Dose: 150 mls/hr Thiamine HCl 500 mg/ Sodium (Chloride) 255 mls @ 255 mls/hr IV Q8H [facility] Last Admin: 12/27/17 12:13 Dose: 255 mls/hr Lorazepam (Ativan Tab(*)) 1 mg PO Q12H [facility]AAK PRN Reason: Taper Stop: 12/28/17 04:59 Last Admin: 12/27/17 12:14 Dose: 1 mg Lorazepam (Ativan Inj*) 0 - 6 [address] PUSH .PER [facility] PROTOCOL [facility] PRN Reason: Protocol Last Admin: 12/27/17 14:16 Dose: 2 mg Metoprolol Succinate (Toprol Xl Tab*) 50 mg PO BEDTIME [facility] Last Admin: 12/27/17 00:39 Dose: Not Given Morphine Sulfate (Morphine Inj (Syringe)*) 2 mg IV Q4H PRN PRN Reason: PAIN Last Admin: 12/26/17 13:23 Dose: 2 mg Multivitamins/Minerals (Theragran/Minerals Tab*) 1 tab PO DAILY [facility] Last Admin: 12/27/17 09:05 Dose: 1 tab Nicotine (Nicotine Inhaler*) 10 mg INH Q2H PRN PRN Reason: CRAVING Nicotine (Nicotine Patch 21 Mg/24 Hr*) 1 patch TRANSDERM DAILY@0800 [facility] Last Admin: 12/27/17 09:03 Dose: 1 patch Omeprazole (Prilosec Cap*) 20 mg PO DAILY [facility] Last Admin: 12/27/17 09:06 Dose: 20 mg Ondansetron HCl (Zofran Inj*) 4 mg IV Q4H PRN PRN Reason: NAUSEA/VOMITING Pharmacy Profile Note (Nicotine Patch Removal Note*) 1 note FOLLOW UP 2100 [facility] Last Admin: 12/26/17 20:37 Dose: 1 note Senna (Senokot Tab*) 1 tab PO BID [facility] Last Admin: 12/27/17 10:09 Dose: 1 tab Valsartan (Diovan Tab*) 160 mg PO QAM [facility] Last Admin: 12/27/17 09:06 Dose: 160 mg Vital Signs - 8 hr 12/27/17 12/27/17 12/27/17 09:05 09:58 10:11 Temperature 98.0 F Pulse Rate 86 Respiratory 20 20 20 Rate Blood Pressure 139/104 (mmHg) O2 Sat by Pulse 100 Oximetry 12/27/17 12/27/17 12/27/17 10:45 12:00 12:12 Temperature 99.0 F Pulse Rate 87 Respiratory 20 20 16 Rate Blood Pressure 158/84 (mmHg) O2 Sat by Pulse 100 Oximetry 12/27/17 12/27/17 12/27/17 12:14 12:21 14:16 Temperature Pulse Rate Respiratory 18 20 20 Rate Blood Pressure (mmHg) O2 Sat by Pulse Oximetry 12/27/17 12/27/17 14:20 15:21 Temperature Pulse Rate Respiratory 20 20 Rate Blood Pressure (mmHg) O2 Sat by Pulse Oximetry Oxygen Devices in Use Now: Nasal Cannula Appearance: alert, ill-appearing, dishevled, very tremulous, dried blood around mouth Eyes: - - injected Ears/Nose/Mouth/Throat: - - sutures inside lower lip and forehead Neck: NL Appearance and Movements; NL JVP Respiratory: Symmetrical Chest Expansion and Respiratory Effort Cardiovascular: NL Sounds; No Murmurs; No JVD, RRR Abdominal: NL Sounds; No Tenderness; No Distention Lymphatic: No Cervical Adenopathy Extremities: - - tremulous diffusely Neurological: - - unable to test gait today due to instability Result Diagrams: 12/27/17 05:21 12/26/17 04:52 Additional Lab and Data: Assess/Plan/Problems-Billing Assessment: Mr. Kelly is a 62 yo male with PMH significant for HTN and alcohol abuse who presented to the emergency room with complaints of a fall down stair and difficulty with ambulation. - Patient Problems (1) Wernicke encephalopathy Current Visit: Yes Status: Acute Code(s): E51.2 - WERNICKE'S ENCEPHALOPATHY SNOMED Code(s): 18125793 Comment: continue IV thiamine (2) Alcohol withdrawal Current Visit: Yes Status: Acute Code(s): F10.239 - ALCOHOL DEPENDENCE WITH WITHDRAWAL, UNSPECIFIED SNOMED Code(s): 366079541 Comment: Continue ativan taper, PRN ativan, thiamine, folate and multivitamin Social work consult when he is more alert and able to discuss rehab plans (3) Facial fracture Current Visit: Yes Status: Acute Code(s): S02.92XA - UNSP FRACTURE OF FACIAL BONES, INIT FOR CLOS FX SNOMED Code(s): 19460537 Comment: Nondisplaced fracture of the nasal bridge and nondisplaced fracture of the posterior lateral wall of the left maxilary sinus Follow up with ENT outpatient next week (Dr. Lino's office will call 4S on Friday to see if Pt is still here) (4) Gait abnormality Current Visit: Yes Status: Acute Code(s): R26.9 - UNSPECIFIED ABNORMALITIES OF GAIT AND MOBILITY SNOMED Code(s): 65390272 Comment: Unable to have an MRI due to metallic FB in left orbit, so repeat CT head today to rule out SDH Suspect Wernicke encephalopathy, so treating as above Evaluated by PT; appreciate ongoing input Neuro checks Q4H Status and Disposition: Inpatient.
--- NOTE | 2017-12-27 17:42 | RAD ---
HISTORY: Status post fall, rule out subdural COMPARISONS: December 25, 2017 TECHNIQUE: Multiple contiguous axial CT scans were obtained of the head without intravenous contrast. FINDINGS: HEMORRHAGE/INFARCT: There is patchy hypoattenuation of the right inferior cerebellum that is not clearly seen on the previous examination. This may indicate subacute hemorrhagic infarct. Elsewhere, there is no hemorrhage or acute infarct. MASSES/SHIFT: There is no mass or shift. EXTRA-AXIAL SPACES: There are no extra-axial fluid collections. SULCI AND VENTRICLES: The sulci and ventricles are normal in size and position for the patient's stated age. CEREBRUM: There are no focal parenchymal abnormalities. BRAINSTEM: There are no focal parenchymal abnormalities. CEREBELLUM: There are no focal parenchymal abnormalities. VESSELS: The vessels are grossly normal. PARANASAL SINUSES: There are-fluid levels within the maxillary sinuses bilaterally. ORBITS: The orbits are unremarkable. BONES AND SOFT TISSUE: No bone or soft tissue abnormalities are noted. OTHER: None IMPRESSION: 1. THERE HAS BEEN INTERVAL DEVELOPMENT OF PATCHY HYPOATTENUATION OF THE RIGHT INFERIOR CEREBELLUM SUGGESTIVE OF SUBACUTE NONHEMORRHAGIC INFARCT IN THE CORRECT CLINICAL SETTING. 2. THERE ARE AIR-FLUID LEVELS WITHIN THE MAXILLARY SINUSES BILATERALLY, THIS MAY INDICATE ACUTE SINUSITIS IN THE CORRECT CLINICAL SETTING. 3. NO EXTRA-AXIAL FLUID COLLECTIONS.
--- NOTE | 2017-12-27 19:15 | PN ---
Hospitalist Progress Note Date of Service: 12/27/17 CT head reviewed; subacute cerebellar CVA noted. I discussed the case with Dr. Adams, who recommended a CTA head/neck, a TTE, a lipid profile, and a daily aspirin. Continue telemetry.
[2017-12-27] MEDS ORDERED: Iohexol 350* (CONTRAST) 500 ML MDV IV ONE (19:26)
[2017-12-27] MEDS: Nicotine Patch Removal NOTE FOLLOW UP SCH (20:19)
[2017-12-28] MEDS: LORazepam TAB(*) 1 MG PO SCH (00:20)
[2017-12-28] MEDS: LORazepam INJ* 2 MG/ML 1 ML VIAL IV PUSH SCH ×4 (00:20→08:18)
[2017-12-28] MEDS: Thiamine IV* 500 MG in NS 0.9% 250 ML* 250 ML IV SCH ×3 (03:41→20:05)
[2017-12-28] MEDS: NS 0.9% 1000 ML* 1,000 ML IV SCH ×3 (03:43→21:00)
[2017-12-28 06:21] LABS: ABS Basophils 0 10^3/ul (0-0.2); ABS Eosinophils 0 10^3/ul (0-0.6); ABS Monocytes 1.3 10^3/ul (0-0.8); ABS Neutrophils 8.8 10^3/ul (1.5-7.7); ABS Nucleated RBC 0 10^3/ul; Eosinophil % 0.2 % (0-6); Hematocrit 41 % (42-52); Hemoglobin 13.8 g/dl (14.0-18.0); Lymphocyte % 9.3 % (25-47); Mean Corpuscular HGB Conc 34 g/dl (31-36); Mean Corpuscular Hemoglobin 34 pg (27-31); Mean Corpuscular Volume 99 fL (80-94); Mean Platelet Volume 7 um3 (7.4-10.4); Nucleated Red Blood Cells % 0; Platelet Count 299 10^3/ul (150-450); Red Cell Distribution Width 13 % (10.5-15); White Blood Count 11.2 10^3/ul (3.5-10.8)
[2017-12-28 06:38] LABS: EGFR Non-African American 133.5 (>60)
[2017-12-28] MEDS: Valsartan TAB* 160 MG PO SCH (08:18)
[2017-12-28] MEDS: Docusate CAP* 100 MG PO SCH ×2 (08:18→20:20)
[2017-12-28] MEDS: Ascorbic Acid TAB* 500 MG PO SCH (08:18)
[2017-12-28] MEDS: Folic Acid TAB* 1 MG PO SCH (08:18)
[2017-12-28] MEDS: Nicotine PATCH 21 MG/24 HR* PATCH TRANSDERM SCH (08:18)
[2017-12-28] MEDS: Enoxaparin(*) 40 MG/0.4 ML SYR SUBCUT SCH (08:18)
[2017-12-28] MEDS: Multivitamins/Minerals TAB PO SCH (08:18)
[2017-12-28] MEDS: Aspirin EC Low Dose* 81 MG TAB.EC PO SCH (08:19)
[2017-12-28] MEDS: Senna TAB PO SCH ×2 (08:19→20:29)
[2017-12-28] MEDS: buPROPion SR TAB.SR* 100 MG PO SCH (08:19)
[2017-12-28] MEDS: Omeprazole CAP* 20 MG PO SCH (08:19)
[2017-12-28] MEDS ORDERED: Atorvastatin* 40 MG TAB PO SCH (09:09)
--- NOTE | 2017-12-28 10:42 | ECHO ---
Patient: AREDN CHIN [facility] Rec#: [id number] : 1955 Date: 12/28/2017 Age: 62y Height: 180.3 cm / 71.0 in Weight: 74.4 kg / 164.0 lbs Sex: M BSA: 1.9 Room#: 437 Admit Date#: 12/25/2017 Type: Inpatient Referring: Winter Winkler MD Reading: Logan Sun MD Seed Pelleter: Yoanna Chaney RN RDCS CC: Fabio Ernst MD Transthoracic Echocardiogram Indication: Cerebellar CVA BP: 142/96 HR: 88 Rhythm: NSR with PVCs Findings History: HTN, HLD, ETOH use, marijuana use, former smoker Technical Comments: The study is technically limited due to the patient's smoking history. Completed at 0950. Left Ventricle: The left ventricular chamber size is normal. Mild concentric left ventricular hypertrophy is observed. Global left ventricular wall motion and contractility are within normal limits. There is normal left ventricular systolic function. The estimated ejection fraction is 55-60%. There is no consistent Doppler evidence of clinically significant diastolic dysfunction. Left Atrium: The left atrial chamber size is normal. Right Ventricle: The right ventricular chamber size and systolic function are within normal limits. The right ventricle wall thickness is mildly increased. Right Atrium: The right atrium is slightly dilated. A patent foramen ovale is not demonstrated by color Doppler. Aortic Valve: The aortic valve structure is not well visualized. The aortic valve leaflets are mildly thickened. There is no evidence of aortic regurgitation. There is no evidence of aortic stenosis. Mitral Valve: The mitral valve leaflets are mildly thickened. There is a trace of mitral regurgitation. There is no evidence of mitral stenosis. Tricuspid Valve: The tricuspid valve leaflets are normal. There is trace tricuspid regurgitation. Unable to estimate the right ventricular systolic pressure. There is no tricuspid stenosis. Pulmonic Valve: The pulmonic valve structure is not well visualized. There is no evidence of pulmonic regurgitation. There is no pulmonic stenosis. Pericardium: There is no significant pericardial effusion. A pericardial fat pad is visualized. Aorta: There is no dilatation of the ascending aorta. The aortic arch is not well visualized. There is no dilation of the aortic root. Pulmonary Artery: The main pulmonary artery is not well visualized. Venous: The inferior vena cava appears normal in size. There is a greater than 50% respiratory change in the inferior vena cava dimension. Summary: There was not any prior study for comparison. Conclusions Global left ventricular wall motion and contractility are within normal limits. There is normal left ventricular systolic function. The estimated ejection fraction is 55-60%. The right ventricular chamber size and systolic function are within normal limits. A patent foramen ovale is not demonstrated by color Doppler. There is a trace of mitral regurgitation. There is trace tricuspid regurgitation. Unable to estimate the right ventricular systolic pressure. There is no significant pericardial effusion. Measurements Name Value Normal Range RVIDd (AP) 2D 2.4 cm (0.9 - 2.6) RVDdMajor (2D) 3.2 cm (2.2 - 4.4) RVAW (2D) 0.8 cm (0.2 - 0.5) RAd ISD 4CH 5 cm (3.4 - 4.9) RA (A4C)W 4.1 cm (2.9 - 4.6) IVSd (2D) 1.2 cm (0.6 - 1) LVPWd (2D) 1.2 cm (0.6 - 1) LVIDd (2D) 4.1 cm (3.6 - 5.4) Aortic Annulus 2.2 cm (1.4 - 2.6) Ao root diameter (2D) 2.8 cm (2.1 - 3.5) Ascending Ao 2.9 cm (2.1 - 3.4) LA dimension (AP) 2D 3.4 cm (2.3 - 3.8) LAd ISD 4CH 4.5 cm (2.9 - 5.3) LA ISD 4CH W 4.5 cm (2.5 - 4.5) Name Value Normal Range LA ESV SP 4CH (A/L) 62 ml - LA ESV SP 2CH (A/L) 50 ml - LA ESV BP (A/L) 56 ml - LA ESV BP (A/L) index 28.8 ml/m2 - LA ESV SP 4CH (MOD) 59 ml - LA ESV SP 2CH (MOD) 47 ml - Name Value Normal Range MV E-wave Vmax 0.76 m/sec - MV deceleration time 285 msec - MV A-wave Vmax 0.83 m/sec - MV E:A ratio 0.92 ratio - LV septal e' Vmax 0.08 m/sec - LV lateral e' Vmax 0.08 m/sec - LV E:e' septal ratio 9.5 ratio - LV E:e' lateral ratio 9.5 ratio - Name Value Normal Range AV Vmax 1.2 m/sec - AV VTI 25.5 cm - AV peak gradient 5.8 mmHg - AV mean gradient 3.8 mmHg - LVOT Vmax 0.7 m/sec - LVOT VTI 16.6 cm - LVOT peak gradient 2 mmHg - LVOT mean gradient 1.1 mmHg - Name Value Normal Range IVC diameter 2 cm - Name Value Normal Range PV Vmax 0.89 m/sec -
[2017-12-28] MEDS ORDERED: Magnesium Sulfate 2 GM IV* 2 GM/50 ML BAG IVPB ONE (12:40)
--- NOTE | 2017-12-28 15:32 | RAD ---
HISTORY: MRI screening COMPARISONS: CT dated February 16, 2010 VIEWS: Frontal views of the abdomen. FINDINGS: BOWEL: There is a nonspecific bowel gas pattern, with nondilated small bowel gas noted. There is a large amount of stool within the colon. CALCULI: There are no abnormal calculi. BONES AND SOFT TISSUES: There are no osseous abnormalities. OTHER FINDINGS: The lung bases are clear. There is no subphrenic gas. There are 2 radiopaque foci overlying the left upper quadrant. It is unclear if these are within the soft tissues or within the lumen of the bowel. IMPRESSION: 2 RADIOPAQUE FOCI OVERLYING THE LEFT UPPER QUADRANT. IT IS UNCLEAR IF THESE ARE WITHIN THE SOFT TISSUES OR WITHIN THE LUMEN OF THE BOWEL. CONSIDER FOLLOW-UP IMAGING PRIOR TO ANY MRI IMAGING TO EVALUATE PROGRESSION OR RESOLUTION OF THESE RADIOPAQUE FOREIGN BODIES.
--- NOTE | 2017-12-28 15:32 | RAD ---
HISTORY: MRI clearance. COMPARISON: None. FINDINGS: Frontal and lateral views of the orbits. There is no radiopaque foreign body attributable to the orbits. The orbital rims are intact. The sinuses are clear. The zygomatic arches are normal. IMPRESSION: No radiopaque foreign body attributable to the orbits.
[2017-12-28] MEDS: Lactulose* 15 ML UDC PO SCH ×2 (15:41→20:20)
--- NOTE | 2017-12-28 16:57 | PN ---
Subjective Date of Service: 12/28/17 Interval History: has required 2mg IV ativan per the [facility] protocol. says he feels okay but is only able to tell me his name, not where he is, why he is here, or the year. he denies pain, nausea. he did not eat any breakfast despite being offered and encouraged. a 1:1 is present in his room. Family History: Unchanged from Admission Social History: Unchanged from Admission Past Medical History: Unchanged from Admission Objective Active Medications: Al Hydrox/Mg Hydrox/Simethicone (Maalox Plus*) 30 ml PO Q6H PRN PRN Reason: INDIGESTION Ascorbic Acid (Vitamin C Tab*) 500 mg PO QAM [facility] Last Admin: 12/28/17 08:18 Dose: 500 mg Aspirin (Aspirin Ec Low Dose*) 81 mg PO DAILY [facility] Last Admin: 12/28/17 08:19 Dose: 81 mg Atorvastatin Calcium (Lipitor*) 40 mg PO BEDTIME [facility] Bupropion HCl (Wellbutrin Sr Tab*) 100 mg PO QAM [facility] Last Admin: 12/28/17 08:19 Dose: 100 mg Device (Nicotine Mouth Piece*) 1 each INH .USE WITH NICOTROL PRN PRN Reason: CRAVING Docusate Sodium (Colace Cap*) 100 mg PO BID [facility] Last Admin: 12/28/17 08:18 Dose: 100 mg Enoxaparin Sodium (Lovenox(*)) 40 mg SUBCUT Q24H [facility] Last Admin: 12/28/17 08:18 Dose: 40 mg Folic Acid (Folvite Tab*) 1 mg PO DAILY [facility] Last Admin: 12/28/17 08:18 Dose: 1 mg Sodium Chloride (Ns 0.9% 1000 Ml*) 1,000 mls @ 150 mls/hr IV PER RATE [facility] Last Admin: 12/28/17 10:33 Dose: 150 mls/hr Thiamine HCl 500 mg/ Sodium (Chloride) 255 mls @ 255 mls/hr IV Q8H [facility] Last Admin: 12/28/17 11:34 Dose: 255 mls/hr Lactulose (Lactulose*) 15 ml PO TID [facility] Last Admin: 12/28/17 15:41 Dose: 15 ml Lorazepam (Ativan Inj*) 0 - 6 mg IV PUSH .PER [facility] PROTOCOL ISAAK PRN Reason: Protocol Last Admin: 12/28/17 08:18 Dose: 2 mg Metoprolol Succinate (Toprol Xl Tab*) 50 mg PO BEDTIME [facility] Last Admin: 12/27/17 20:13 Dose: 50 mg Morphine Sulfate (Morphine Inj (Syringe)*) 2 mg IV Q4H PRN PRN Reason: PAIN Last Admin: 12/26/17 13:23 Dose: 2 mg Multivitamins/Minerals (Theragran/Minerals Tab*) 1 tab PO DAILY [facility] Last Admin: 12/28/17 08:18 Dose: 1 tab Nicotine (Nicotine Inhaler*) 10 mg INH Q2H PRN PRN Reason: CRAVING Nicotine (Nicotine Patch 21 Mg/24 Hr*) 1 patch TRANSDERM DAILY@0800 [facility] Last Admin: 12/28/17 08:18 Dose: 1 patch Omeprazole (Prilosec Cap*) 20 mg PO DAILY [facility] Last Admin: 12/28/17 08:19 Dose: 20 mg Ondansetron HCl (Zofran Inj*) 4 mg IV Q4H PRN PRN Reason: NAUSEA/VOMITING Pharmacy Profile Note (Nicotine Patch Removal Note*) 1 note FOLLOW UP 2100 [facility] Last Admin: 12/27/17 20:19 Dose: 1 note Senna (Senokot Tab*) 1 tab PO BID [facility] Last Admin: 12/28/17 08:19 Dose: 1 tab Valsartan (Diovan Tab*) 160 mg PO QAM [facility] Last Admin: 12/28/17 08:18 Dose: 160 mg Vital Signs - 8 hr 12/28/17 12/28/17 09:33 11:36 Temperature 99.5 F Pulse Rate 79 Respiratory 22 22 Rate Blood Pressure 157/35 (mmHg) O2 Sat by Pulse 100 Oximetry Oxygen Devices in Use Now: Nasal Cannula Appearance: ill-appearing, tachypneic, tremulous Eyes: - - pupils 3mm b/l and reactive to light. unable to test for nystagmus, he does not follow instruction. Ears/Nose/Mouth/Throat: - - laceration on forehead sutured, inside lower lip sutured Neck: NL Appearance and Movements; NL JVP, Trachea Midline Respiratory: Symmetrical Chest Expansion and Respiratory Effort, Clear to Auscultation Cardiovascular: NL Sounds; No Murmurs; No JVD, RRR Abdominal: NL Sounds; No Tenderness; No Distention, No Hepatosplenomegaly Extremities: No Edema Skin: - - echymoses and abrasions on both knees Neurological: - - he is able to shake my hand when I ask him to, but has 3/5 strength in wrist extension. 4/5 in shoulder flexion. lower extremity strength is 3/5 b/l. he can follow simple commands like raising his leg from the bed but not complex commands. he believes there are 8 people in the room (there were 4). he can repeat "no ifs ands or buts" after me. his face is symmetric. he is too unsteady to test gait. Result Diagrams: 12/28/17 05:05 12/28/17 05:05 Additional Lab and Data: Assess/Plan/Problems-Billing Assessment: Mr. Kelly is a 62 yo male with PMH significant for HTN and alcohol abuse who presented to the emergency room with complaints of a fall down stair and difficulty with ambulation. - Patient Problems (1) Gait abnormality Current Visit: Yes Status: Acute Code(s): R26.9 - UNSPECIFIED ABNORMALITIES OF GAIT AND MOBILITY SNOMED Code(s): 18465215 Comment: At admission, radiology deemed him unable to have an MRI due to metallic FB in left orbit, but repeat CT head yesterday did not show this Repeat CT head did, however, show concern for cerebellar CVA, which may have contributed to his ataxia He also has upper extremity weakness, so would like to rule out a c-spine injury that was unable to be captured on c-spine CT at admission I witnessed, along with his RN Ricky, consent for MRI verbally obtained from his daughter Mariela. We will proceed with MRI brain and c-spine now. Suspect Wernicke encephalopathy, so treating with thiamine Neuro checks Q4H (2) Wernicke encephalopathy Current Visit: Yes Status: Acute Code(s): E51.2 - WERNICKE'S ENCEPHALOPATHY SNOMED Code(s): 65037493 Comment: continue IV thiamine (3) Alcohol withdrawal Current Visit: Yes Status: Acute Code(s): F10.239 - ALCOHOL DEPENDENCE WITH WITHDRAWAL, UNSPECIFIED SNOMED Code(s): 881151770 Comment: Ativan taper complete, continue PRN ativan, thiamine, folate and multivitamin Social work consult when he is more alert and able to discuss rehab plans (4) Facial fracture Current Visit: Yes Status: Acute Code(s): S02.92XA - UNSP FRACTURE OF FACIAL BONES, INIT FOR CLOS FX SNOMED Code(s): 91416606 Comment: Nondisplaced fracture of the nasal bridge and nondisplaced fracture of the posterior lateral wall of the left maxilary sinus Follow up with ENT outpatient next week (Dr. Lino's office will call [facility] on Friday to see if Pt is still here) (5) Impaired decision making Current Visit: Yes Status: Acute Code(s): Z78.9 - OTHER SPECIFIED HEALTH STATUS SNOMED Code(s): 655265562 Comment: Patient's brother Daniel has been present during this admission and is the only local family member, but Mr. Kelly does have a daughter, who is the legal next of kin. His daughter is Araceli, who I spoke with today, and she does not want to defer her decision- making position to Daniel, so she should be notified of all updates and changes. Verbal consent for the MRI was obtained from Araceli. She lives in [place] and is planning to come to [place] this week. Status and Disposition: Inpatient.
[2017-12-28] MEDS ORDERED: LORazepam INJ* 2 MG/ML 1 ML VIAL IV PUSH PRN (17:53)
[2017-12-28] MEDS: Metoprolol Succinate XL TAB* 50 MG PO SCH (20:20)
[2017-12-28] MEDS: Nicotine Patch Removal NOTE FOLLOW UP SCH (20:30)
--- NOTE | 2017-12-28 21:05 | RAD ---
HISTORY: Rule out cord compression COMPARISONS: None TECHNIQUE: The following sequences were obtained of the cervical spine: Sagittal T1- and T2-weighted images, sagittal STIR images, and axial T2-weighted images. FINDINGS: Evaluation is limited by extensive patient motion artifact. BRAIN AND SPINAL CORD: Within the limitations of the study, there is no appreciable abnormal CORD signal. ALIGNMENT: There is straightening with reversal of the cervical lordosis. There is grade 1 retrolisthesis of C2 on C3 and C3 and C4. VERTEBRAL BODIES: There is multilevel anterolateral marginal osteophyte formation most mass at C3-C4 inferiorly through C6-C7. There are Modic type I reactive endplate changes at C4-C5 and C6-C7. JOINTS: There is diffuse uncovertebral and facet osteoarthritis. MUSCULATURE: Unremarkable INTERVERTEBRAL DISCS: There is diffuse loss of intervertebral disc height and T2 signal throughout the spine. AXIAL IMAGES: C2-C3: There is a small central disc protrusion versus posterior osteophyte. There is moderate bilateral neural foraminal narrowing. There is mild narrowing of the central canal. C3-C4: There is a broad-based disc osteophyte complex with severe bilateral neural foraminal narrowing and severe narrowing of the central canal. C4-C5: There is a broad-based disc osteophyte complex with severe bilateral neural foraminal narrowing and severe narrowing of the central canal. C5-C6: There is a broad-based disc osteophyte complex with severe bilateral neural foraminal narrowing and severe narrowing of the central canal. C6-C7: There is broad-based disc osteophyte complex with bilateral uncovertebral and facet hypertrophy. There is severe left and moderate right neural foraminal narrowing. There is moderate narrowing of the central canal. C7-T1: There is no disc herniation, spinal stenosis, or neuroforaminal narrowing. SOFT TISSUES: There is edema of the prevertebral soft tissues. Within the limitations of study, there is no appreciable disruption of the anterior longitudinal ligament, posterior longitudinal ligament, ligamentum flavum OTHER: None. IMPRESSION: 1. EVALUATION LIMITED BY EXTENSIVE PATIENT MOTION ARTIFACT. 2. THERE IS NO APPRECIABLE ABNORMAL CORD SIGNAL WITHIN THE LIMITATIONS OF THE STUDY. 3. THERE IS SIGNIFICANT DEGENERATIVE DISC DISEASE AND OSTEOARTHRITIS RESULTING IN SEVERE NARROWING OF THE CENTRAL CANAL AT C3-C4, C4-C5, AND C5-C6 WITH MODERATE NARROWING AT C6-C7 AND MILD NARROWING AT C2-C3. 4. THERE IS EDEMA OF THE PREVERTEBRAL SOFT TISSUES WHICH MAY REFLECT INJURY GIVEN THE HISTORY OF TRAUMA. WITHIN THE LIMITATIONS OF THE STUDY, THERE IS NO APPRECIABLE LIGAMENTOUS DISRUPTION. IF THERE IS CLINICAL CONCERN FOR FRACTURE, CONSIDER CORRELATION WITH CT OF THE CERVICAL SPINE. 5. THERE IS MULTILEVEL NEURAL FORAMINAL NARROWING DESCRIBED ABOVE.. PRELIMINARY FINDINGS WERE DISCUSSED WITH DR. STEIN AT APPROXIMATELY 9:02 PM ON DECEMBER 28, 2017.
--- NOTE | 2017-12-28 21:06 | RAD ---
HISTORY: Cerebellar stroke COMPARISONS: Head CT dated December 27, 2012 TECHNIQUE: The following sequences were obtained of the head: Sagittal T1-weighted images, axial T2-weighted images, axial FLAIR images, axial T1-weighted images. Additionally, axial diffusion-weighted images were obtained with calculated apparent diffusion coefficients. FINDINGS: The study is limited by patient motion artifact. HEMORRHAGE/INFARCT: There is a punctate focus of restricted diffusion within the right posterior cingulate gyrus. Elsewhere, there is no hemorrhage or acute infarct. MASSES/SHIFT: There is no mass or shift. EXTRA-AXIAL SPACES/MENINGES: There is a trace subdural fluid collection along the posterior falx suggestive of a tiny subdural hematoma. SULCI AND VENTRICLES: There is diffuse and proportional enlargement of the sulci and ventricles. CEREBRUM: There is elevated T2/FLAIR signal in the cortex of the posterior single gyrus BRAINSTEM: There are no focal parenchymal abnormalities. CEREBELLUM: There are no focal parenchymal abnormalities. The cerebellar tonsils are normal in size and position. SELLA: The sella is normal. PINEAL: The pineal region is clear. CP ANGLE/TEMPORAL BONES: The labyrinthine structures are grossly normal. VESSELS: Normal flow-voids are noted within the visualized vertebral vasculature. DIFFUSION ABNORMALITIES: As noted above, there is restricted diffusion within the cingulate gyrus posteriorly on the right. PARANASAL SINUSES/MASTOIDS: There are-fluid levels within the maxillary sinuses bilaterally. There is mucosal thickening of the frontal sinus, ethmoid air cells, sphenoid sinus, and maxillary sinuses. ORBITS: The orbits are unremarkable. BONES AND SOFT TISSUE: No bone or soft tissue abnormalities are noted. OTHER: None IMPRESSION: 1. THERE IS A PUNCTATE FOCUS OF ACUTE DIFFUSION WITHIN THE POSTERIOR SINGLE GYRUS ON THE RIGHT CONSISTENT WITH SUBACUTE NONHEMORRHAGIC INFARCT. 2. THERE IS A TINY POSTERIOR FALCINE SUBDURAL HEMATOMA TO THE RIGHT OF MIDLINE. 3. DIFFUSE INVOLUTIONAL CHANGE. 4. MODERATE SINUS MUCOSAL INFLAMMATORY DISEASE, WITH AIR-FLUID LEVELS IN THE MAXILLARY SINUSES BILATERALLY. IN THE CORRECT CLINICAL SETTING, THIS MAY REPRESENT ACUTE SINUSITIS PRELIMINARY FINDINGS WERE DISCUSSED WITH DR. STEIN AT APPROXIMATELY 9:02 PM ON DECEMBER 28, 2017.
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
[2017-12-29] MEDS: Thiamine IV* 500 MG in NS 0.9% 250 ML* 250 ML IV SCH ×3 (03:37→20:21)
[2017-12-29] MEDS: NS 0.9% 1000 ML* 1,000 ML IV SCH ×3 (03:41→16:46)
--- NOTE | 2017-12-29 04:53 | EEG ---
ELECTROENCEPHALOGRAPHY: DATE OF STUDY: 12/28/17 LOCATION: He is an inpatient in room 437. REFERRING PROVIDER: Dr. Winkler. CHIEF COMPLAINT: Alcohol withdrawal, head injury, persistent encephalopathy. MEDICATIONS: Include: 1. Lorazepam. 2. Atorvastatin. 3. Thiamine. 4. Valsartan. 5. Omeprazole. 6. Bupropion. REPORT: This 16-channel EEG is remarkable for background rhythms consisting of fairly abundant beta activity. Intermittent slowing is seen particularly from the occipital derivations and more from the left occipital area than the right. The patient is intermittently awake and asleep throughout the recording. There is no clearly defined alpha rhythm. There are no epileptiform discharges during this recording. There are no clear features of stage 2 sleep. CLINICAL IMPRESSION: Abnormal EEG due to generalized slowing and disorganization of background rhythms consistent with diffuse cerebral dysfunction. There may be slower rhythms from the left hemisphere than the right, but both hemispheres are affected. Excessive beta activity may represent benzodiazepine drug effect. There are no epileptiform features to this recording. [id number]/[facility] #: [id number] [facility]
[2017-12-29 05:14] LABS: ABS Basophils 0.1 10^3/ul (0-0.2); ABS Eosinophils 0 10^3/ul (0-0.6); ABS Monocytes 1.2 10^3/ul (0-0.8); ABS Neutrophils 9.6 10^3/ul (1.5-7.7); ABS Nucleated RBC 0 10^3/ul; Eosinophil % 0.2 % (0-6); Hematocrit 38 % (42-52); Hemoglobin 13.1 g/dl (14.0-18.0); Lymphocyte % 8.6 % (25-47); Mean Corpuscular HGB Conc 35 g/dl (31-36); Mean Corpuscular Hemoglobin 34 pg (27-31); Mean Corpuscular Volume 98 fL (80-94); Mean Platelet Volume 7 um3 (7.4-10.4); Nucleated Red Blood Cells % 0; Platelet Count 321 10^3/ul (150-450); Red Blood Count 3.86 10^6/ul (4.0-5.4); Red Cell Distribution Width 13 % (10.5-15)
[2017-12-29 05:20] LABS: INR 1.17 (0.77-1.02)
[2017-12-29 05:34] LABS: EGFR Non-African American 138.7 (>60)
[2017-12-29] MEDS: LORazepam INJ* 2 MG/ML 1 ML VIAL IV PUSH SCH ×3 (06:07→12:13)
[2017-12-29] MEDS ORDERED: Iohexol 350* (CONTRAST) 500 ML MDV IV ONE (08:05)
[2017-12-29] MEDS ORDERED: Magnesium Oxide TAB* 400 MG PO SCH (09:00)
--- NOTE | 2017-12-29 09:12 | RAD ---
HISTORY: Cerebellar stroke COMPARISONS: MRI dated December 28, 2017 TECHNIQUE: Multiple contiguous axial CT scans were obtained of the head and neck after the administration of nonionic intravenous contrast timed to the systemic arterial phase of contrast enhancement. Coronal and sagittal multiplanar reformations are submitted for review. Multiple 3-D maximum intensity projection reconstructions are also submitted for review. FINDINGS: Evaluation somewhat limited by patient motion artifact. CTA NECK: AORTIC ARCH: There is calcific atherosclerotic disease of the aortic arch, without ostial or proximal stenosis of the cephalic great vessels. There is a normal three-vessel branching pattern. RIGHT VERTEBRAL ARTERY: The right vertebral artery is patent along its course, without stenosis. LEFT VERTEBRAL ARTERY: The left vertebral artery is patent along its course, without stenosis. DOMINANCE: The vertebral arteries are codominant. RIGHT COMMON CAROTID ARTERY: The right common carotid artery is patent. The right carotid bifurcation occurs at C3-C4 RIGHT INTERNAL CAROTID ARTERY: There is atheromatous disease of the right carotid bifurcation, without right internal carotid artery stenosis by NASCET criteria. RIGHT EXTERNAL CAROTID ARTERY: The right external carotid artery is unremarkable. LEFT COMMON CAROTID ARTERY: The left common carotid artery is patent. The left carotid bifurcation occurs at C4-C5 LEFT INTERNAL CAROTID ARTERY: There is atheromatous disease of the left carotid bifurcation, without left internal carotid artery stenosis by NASCET criteria. LEFT EXTERNAL CAROTID ARTERY: The left external carotid artery is unremarkable. VENOUS CIRCULATION: The venous system is unremarkable. SALIVARY GLANDS: The parotid glands, submandibular glands, sublingual glands are normal. NASAL CAVITY/NASOPHARYNX: The nasal cavity and nasopharynx are normal. ORAL CAVITY/OROPHARYNX: The oral cavity is obscured by streak artifact from dental amalgam. The visualized oral cavity and oropharynx are unremarkable. LARYNGEAL APPARATUS/HYPOPHARYNX: The laryngeal apparatus and hypopharynx are normal. UPPER AIRWAY/UPPER ESOPHAGUS: The visualized upper airway and esophagus are normal. LUNG APICES: There are small bilateral pleural effusions. THYROID GLAND: The thyroid gland is normal. LYMPH NODES: There is no lymphadenopathy by size criteria. BONES AND SOFT TISSUES: Degenerative changes are noted in the cervical spine most pronounced at C3-C4 inferiorly through C6-C7, as described on the MRI dated December 29, 2015. CTA HEAD: INTRACRANIAL CIRCULATION: There is no aneurysm, vascular malformation, occlusion, or stenosis of the visualized intracranial circulation. The anterior communicating artery complex is clear. Bilateral posterior communicating arteries are identified. VENOUS CIRCULATION: The venous system is unremarkable. PERFUSION: There is no obvious parenchymal perfusion deficit. HEMORRHAGE/INFARCT: There is no hemorrhage or acute infarct. MASSES/SHIFT: There is no mass or shift. EXTRA-AXIAL SPACES: There are no extra-axial fluid collections. The small subdural hematoma noted on MRI is not clearly appreciated on the current examination. SULCI AND VENTRICLES: There is diffuse and proportional enlargement of the sulci and ventricles. CEREBRUM: There are no focal parenchymal abnormalities. BRAINSTEM: There are no focal parenchymal abnormalities. CEREBELLUM: There are no focal parenchymal abnormalities. PARANASAL SINUSES: There is mucosal thickening of the maxillary sinuses cells. There is an air-fluid level within the right maxillary sinus. ORBITS: The orbits are unremarkable. BONES AND SOFT TISSUE: No bone or soft tissue abnormalities are noted. OTHER: There is no abnormal enhancement. IMPRESSION: 1. ATHEROSCLEROSIS. 2. NO INTERNAL CAROTID ARTERY STENOSIS BY NASCET CRITERIA. 3. NO ANEURYSM, VASCULAR MALFORMATION, OCCLUSION, OR STENOSIS OF THE VISUALIZED INTRACRANIAL CIRCULATION.. 4. THE SMALL FALCINE SUBDURAL NOTED ON PREVIOUS MRI IS NOT WELL APPRECIATED ON THE CURRENT EXAMINATION. 5. MODERATE SINUS MUCOSAL INFLAMMATORY DISEASE, WITH AN AIR-FLUID LEVEL IN THE RIGHT MAXILLARY SINUS. IN THE CORRECT CLINICAL SETTING, THIS MAY REPRESENT ACUTE SINUSITIS. CPT II Codes: 3100F
--- NOTE | 2017-12-29 11:45 | RAD ---
HISTORY: Fall, rule out C-spine injury COMPARISONS: December 28, 2014 TECHNIQUE: The following sequences were obtained of the cervical spine: Sagittal T1- and T2-weighted images, sagittal STIR images, coronal T2-weighted images, axial T2 and gradient echo images. FINDINGS: The study is read in conjunction with the December 28, 2009 examination. The study is markedly limited by extensive patient motion artifact. The diagnostic quality is less than the December 28, 2017 examination. The current examination does not reveal any new findings compared to the December 28, 2009 examination. IMPRESSION: THE CURRENT EXAMINATION IS MARKEDLY LIMITED BY PATIENT MOTION ARTIFACT AND IS OF LOWER DIAGNOSTIC QUALITY THAN ON THE DECEMBER 28, 2017 EXAMINATION. PLEASE REFER TO THE REPORT OF DECEMBER 28, 2017 EXAMINATION. NO NEW FINDINGS ARE NOTED ON THE CURRENT EXAMINATION.
[2017-12-29] MEDS: Valsartan TAB* 160 MG PO SCH (12:13)
[2017-12-29] MEDS: Nicotine PATCH 21 MG/24 HR* PATCH TRANSDERM SCH (12:13)
[2017-12-29] MEDS: buPROPion SR TAB.SR* 100 MG PO SCH (12:13)
[2017-12-29] MEDS ORDERED: LORazepam INJ* 2 MG/ML 1 ML VIAL IV PUSH PRN (12:36)
[2017-12-29] MEDS ORDERED: Magnesium Sulfate 1 GM IV* 1 GM/100 ML BAG IV ONE (12:48)
[2017-12-29] MEDS: Ascorbic Acid TAB* 500 MG PO SCH (12:55)
[2017-12-29] MEDS: Folic Acid TAB* 1 MG PO SCH (12:55)
[2017-12-29] MEDS: Docusate CAP* 100 MG PO SCH (12:55)
[2017-12-29] MEDS: Omeprazole CAP* 20 MG PO SCH (12:56)
[2017-12-29] MEDS: Lactulose* 15 ML UDC PO SCH ×2 (12:56→15:09)
[2017-12-29] MEDS: Multivitamins/Minerals TAB PO SCH (12:56)
[2017-12-29] MEDS: Senna TAB PO SCH (12:56)
--- NOTE | 2017-12-29 13:01 | PN ---
Subjective Date of Service: 12/29/17 Interval History: Pt is very lethargic today, but received IV Ativan for WA protocol. Barely able to speak, loud snoring noted. Family History: Unchanged from Admission Social History: Unchanged from Admission Past Medical History: Unchanged from Admission Objective Active Medications: Al Hydrox/Mg Hydrox/Simethicone (Maalox Plus*) 30 ml PO Q6H PRN PRN Reason: INDIGESTION Ascorbic Acid (Vitamin C Tab*) 500 mg PO QAM [facility] Last Admin: 12/28/17 08:18 Dose: 500 mg Atorvastatin Calcium (Lipitor*) 40 mg PO BEDTIME [facility] Last Admin: 12/28/17 20:20 Dose: 40 mg Device (Nicotine Mouth Piece*) 1 each INH .USE WITH NICOTROL PRN PRN Reason: CRAVING Docusate Sodium (Colace Cap*) 100 mg PO BID [facility] Last Admin: 12/28/17 20:20 Dose: 100 mg Folic Acid (Folvite Tab*) 1 mg PO DAILY [facility] Last Admin: 12/28/17 08:18 Dose: 1 mg Thiamine HCl 500 mg/ Sodium (Chloride) 255 mls @ 255 mls/hr IV Q8H [facility] Stop: 12/29/17 23:59 Last Admin: 12/29/17 03:37 Dose: 255 mls/hr Magnesium Sulfate/Dextrose (Magnesium Sulfate 1 Gm Iv*) 1 gm in 100 mls @ 200 mls/hr IV ONCE ONE Stop: 12/29/17 13:17 Famotidine 20 mg/ Sodium (Chloride) 102 mls @ 408 mls/hr IVPB DAILY [facility] Lactulose (Lactulose*) 15 ml PO TID [facility] Last Admin: 12/28/17 20:20 Dose: 15 ml Lorazepam (Ativan Inj*) 2 mg IV PUSH Q6H PRN PRN Reason: AGITATION Lorazepam (Ativan Inj*) 0.5 mg IV PUSH Q8H PRN PRN Reason: ANXIETY Magnesium Oxide (Magox 400 Tab*) 800 mg PO DAILY [facility] Metoprolol Succinate (Toprol Xl Tab*) 50 mg PO BEDTIME [facility] Last Admin: 12/28/17 20:20 Dose: 50 mg Morphine Sulfate (Morphine Inj (Syringe)*) 2 mg IV Q4H PRN PRN Reason: PAIN Last Admin: 12/26/17 13:23 Dose: 2 mg Multivitamins/Minerals (Theragran/Minerals Tab*) 1 tab PO DAILY [facility] Last Admin: 12/28/17 08:18 Dose: 1 tab Nicotine (Nicotine Inhaler*) 10 mg INH Q2H PRN PRN Reason: CRAVING Nicotine (Nicotine Patch 21 Mg/24 Hr*) 1 patch TRANSDERM DAILY@0800 [facility] Last Admin: 12/29/17 12:13 Dose: 1 patch Ondansetron HCl (Zofran Inj*) 4 mg IV Q4H PRN PRN Reason: NAUSEA/VOMITING Pharmacy Profile Note (Nicotine Patch Removal Note*) 1 note FOLLOW UP 2100 [facility] Last Admin: 12/28/17 20:30 Dose: 1 note Senna (Senokot Tab*) 1 tab PO BID [facility] Last Admin: 12/28/17 20:29 Dose: Not Given Thiamine HCl (Vitamin B-1 Tab*) 100 mg PO TID [facility] Valsartan (Diovan Tab*) 160 mg PO QAM [facility] Last Admin: 12/29/17 12:13 Dose: 160 mg Vital Signs - 8 hr 12/29/17 12/29/17 12/29/17 06:04 06:07 07:16 Temperature 97.2 F Pulse Rate 84 86 Respiratory 24 26 40 Rate Blood Pressure 151/78 161/76 (mmHg) O2 Sat by Pulse 89 Oximetry 12/29/17 12/29/17 12/29/17 07:17 08:00 08:25 Temperature Pulse Rate Respiratory 36 40 Rate Blood Pressure (mmHg) O2 Sat by Pulse 90 Oximetry 12/29/17 12/29/17 12/29/17 09:33 09:47 11:53 Temperature 98.8 F 99.7 F Pulse Rate 82 87 Respiratory 38 36 32 Rate Blood Pressure 163/78 156/81 (mmHg) O2 Sat by Pulse 99 96 Oximetry 12/29/17 12/29/17 11:55 12:13 Temperature Pulse Rate Respiratory 32 34 Rate Blood Pressure (mmHg) O2 Sat by Pulse Oximetry Oxygen Devices in Use Now: Nasal Cannula, High Flow Nasal Cannula Appearance: 62 yo M in nAD, nasal congestion noted with breathing, very lethargic, able to answer only to "yes, no" questions Eyes: No Scleral Icterus, PERRLA Ears/Nose/Mouth/Throat: - - dry mucosa, dry blood on lower lip Neck: NL Appearance and Movements; NL JVP, Trachea Midline Respiratory: Clear to Auscultation - sonorous breathing noted Cardiovascular: NL Sounds; No Murmurs; No JVD, RRR Abdominal: NL Sounds; No Tenderness; No Distention, No Hepatosplenomegaly Lymphatic: No Cervical Adenopathy Extremities: No Edema, No Clubbing, Cyanosis Skin: - - forehead laceration sutured, skin tears and abrasions on b/l knees and lower lip Neurological: - - b/l wrist drop, motor at 3+/5 L>R, unable to raise legs of bed b/l Result Diagrams: 12/29/17 04:55 12/29/17 04:55 Additional Lab and Data: Assess/Plan/Problems-Billing Assessment: Mr. Kelly is a 62 yo male with PMH significant for HTN and alcohol abuse who presented to the emergency room with complaints of a fall down stair and difficulty with ambulation. - Patient Problems (1) Lethargy Comment: combination of benzodiazepine use and possible ETOH/hepatic encaphalopthy fot now needs to be NPO due to marked lethargy cont VF and Papcid IV for GI prophylaxis Ammonia level from today pending Suspect Wernicke encephalopathy, treating with thiamine (2) Gait abnormality Comment: MRI brain shows small SDH and ischemic CVA that is not matching pt's symptoms. concern for C spijh einjury on MRU of c spine although the motion artifact makes it difficult to determine. For now C spine collar in place, Dr. Nolasco and Angie consulted Neuro checks Q4H (3) Alcohol withdrawal SNOMED Code(s): 733821344 Comment: Ativan taper completed, continue PRN ativan, thiamine, folate and multivitamin WAM d/c'd (4) Facial fracture Comment: Nondisplaced fracture of the nasal bridge and nondisplaced fracture of the posterior lateral wall of the left maxilary sinus Follow up with ENT outpatient next week (Dr. Lino's office will call [facility] on Friday to see if Pt is still here) (5) Impaired decision making Comment: Pt's daughter Araceli -should be notified of all updates and changes. She lives in [place] and is planning to come to [place] this week. (6) HTN (hypertension) Comment: - SBP 130-150's holding PO meds when NPO, start lopressor IV (7) Leukocytosis Comment: - Improving - Chest xray and UA negative - Suspect stress response from fall - Will recheck labs in the AM (8) DVT prophylaxis Comment: - Lovenox d/c's due to small SDH will start SCD's Status and Disposition: Inpatient.
[2017-12-29] MEDS ORDERED: Morphine INJ* 2 MG/ML 1 ML CARPUJECT IV PRN (13:07)
[2017-12-29] MEDS ORDERED: Propofol* 10 MG/ML 20 ML BTL IV PUSH ONE (15:04)
[2017-12-29] MEDS ORDERED: fentaNYL* 50 MCG/ML 5 ML VIAL (250 MCG VIAL) ONE (15:04)
[2017-12-29] MEDS ORDERED: Midazolam* 1 MG/ML 10 ML VIAL (10 MG) ONE (15:04)
[2017-12-29] MEDS ORDERED: Succinylcholine* 20 MG/ML 10 ML VIAL ONE (15:08)
[2017-12-29] MEDS ORDERED: Propofol* 100 ML ONE (15:14)
--- NOTE | 2017-12-29 15:22 | RAD ---
INDICATION: Possible aspiration evaluate for pneumonia. COMPARISON: Comparison is made with a prior study from December 25, 2017. TECHNIQUE: A portable view of the chest was obtained. FINDINGS: The heart is within normal limits in size. There is mild prominence of the interstitial markings. The lungs are underinflated. There are new small infiltrates at both lung bases. IMPRESSION: NEW SMALL BIBASILAR INFILTRATES.
--- NOTE | 2017-12-29 16:27 | RAD ---
INDICATION: Status post intubation COMPARISON: Most recent chest x-ray is from the same date acquired at 1454 hours TECHNIQUE: Single AP portable view of the chest was obtained at 1552 hours. FINDINGS: Image quality is compromised due to the relative inferiority of a portable chest x-ray. There is been interval placement of a gastric tube with the tip terminating below the level the diaphragm and out of the field of view of the radiograph. The tip of the endotracheal tube is positioned approximately 7 cm above the rashmi and below the level the clavicular heads. Patchy densities overlying the lungs are similar in appearance to the earlier chest x-ray. There is no pneumothorax. IMPRESSION: Appropriate positioning of lines and tubes status post intubation.
--- NOTE | 2017-12-29 16:38 | PN ---
Progress Note - Progress Note Date of Service: 12/29/17 SOAP: Subjective: []Asked to see patient with fall down stairs several days ago striking his forehead and likely experiencing hyperextension injury to spine. Seen by Dr. Adams yesterday who was concerned about hand weakness and ordered MRI of C spine and brain. C spine shows diffuse spondylosis with cord narrowing from C3 to C6. No abnormal cord signal.Patient worsened today and was transferred to ICU where he was electively intubated and sedated to protect his airway. Objective: []Sedated Minimal response to pain Toes upgoing bilaterally Assessment: []Probable central cord syndrome Plan: []Supportive care for now No indication for acute surgical intervention Will follow with you Discussed with Dr. Jaimes
[2017-12-29] MEDS: Metoprolol Tartrate IV* 1 MG/ML 5 ML VIAL IV SCH ×2 (17:51→21:22)
[2017-12-29] MEDS: Propofol* 100 ML IV SCH ×2 (18:16→22:39)
[2017-12-29] MEDS ORDERED: Thiamine IV* 100 MG/ML 2 ML VIAL ONE (20:02)
[2017-12-29] MEDS: Chlorhexidine MOUTHWASH 0.12%* 15 ML UDC TOPICAL SCH ×2 (20:15→23:45)
--- NOTE | 2017-12-29 21:13 | PN ---
NEUROLOGY CONSULT FOLLOWUP: DATE OF FOLLOWUP: 12/29/17 HOSPITALIST: Kenyetta Tamayo MD LOCATION: The patient is in room 437. CHIEF COMPLAINT: Alcohol withdrawal, head and neck injury. INTERVAL HISTORY: Since yesterday, Odell had an MRI of his brain which I reviewed. There is a tiny punctate right occipital cortical infarct. There is also a very small subdural hematoma in the right side of the occipital falx. His MRI of the cervical spine shows lot of artifact, but also pretty severe central canal stenosis from C3 down to at least C5. There is also some prevertebral edema consistent with trauma. An attempt at a second cervical MRI today showed worse motion artifact. MEDICATIONS: Reviewed. He remains on: 1. Lorazepam. 2. WAM protocol. 3. Bupropion 100 mg p.o. daily. 4. Atorvastatin 40 mg p.o. daily. 5. Morphine IV q.4 hours as needed for pain. 6. Thiamine 100 mg p.o. t.i.d. 7. Nicotine patch. PHYSICAL EXAM: He has a hard collar on now and he is snoring respirations. When I have stimulated, he wakes up but continues to have loud respirations. His most recent temperature 99.7 temporally, blood pressure 156/81, heart rate 80s and regular, respiratory rate is running in low 30s. Oxygen saturation is 96% on supplemental oxygen. Neurologic: Eye movements are full. He is somnolent. He is able to answer few commands and denies neck pain. He can weakly raise his arms proximally and exhibits grade 4- deltoid weakness. He has lessen antigravity wrist extensor weakness bilaterally and grade 4-right triceps weakness. He can weakly raise his legs up off the bed, but only a few inches and then they drop down again. DIAGNOSTIC STUDIES/LAB DATA: Other laboratory data includes ammonia level yesterday of 55, sedimentation rate of 69. INR is up to 1.17 today. IMPRESSION: Alcohol withdrawal encephalopathy, possible cervical cord compression, possible bilateral C7 radiculopathies. PLAN: I have discussed the case with Dr. Tamayo and he agreed that benzodiazepine should be held to see if he becomes more alert. We will recheck his ammonia level. Dr. Nolasco has been asked to see the patient in neurosurgical consultation. If his ammonia level is going up, he may need a nasogastric tube for lactulose. If that becomes the case, ENT may need to see him because of his facial fracture. I will continue to follow him. [id number]/[facility] #: [id number] [place]
[2017-12-29] MEDS ORDERED: NS 0.9% 1000 ML* 1,000 ML IV ONE (21:30)
[2017-12-29] MEDS: Nicotine Patch Removal NOTE FOLLOW UP SCH (21:56)
[2017-12-29] MEDS: Heparin VIAL(*) 5000 UNITS/ML VIAL (FIVE THOUSAND) SUBCUT SCH (22:24)
[2017-12-29] MEDS: LORazepam INJ* 2 MG/ML 1 ML VIAL IV PUSH PRN (22:24)
[2017-12-29] MEDS ORDERED: fentaNYL* 50 MCG/ML 2 ML VIAL (100 MCG VIAL) IV ONE (23:00)
[2017-12-30] MEDS: Metoprolol Tartrate IV* 1 MG/ML 5 ML VIAL IV SCH ×4 (02:55→21:00)
[2017-12-30] MEDS: Propofol* 100 ML IV SCH ×5 (03:35→21:56)
[2017-12-30] MEDS: Chlorhexidine MOUTHWASH 0.12%* 15 ML UDC TOPICAL SCH ×6 (03:37→23:56)
[2017-12-30] MEDS ORDERED: NS 0.9% 1000 ML* 1,000 ML IV ONE (04:30)
[2017-12-30] MEDS: Heparin VIAL(*) 5000 UNITS/ML VIAL (FIVE THOUSAND) SUBCUT SCH ×3 (05:42→21:56)
[2017-12-30] MEDS: LORazepam INJ* 2 MG/ML 1 ML VIAL IV PUSH PRN ×2 (05:42→15:39)
[2017-12-30 07:25] LABS: ABS Basophils 0 10^3/ul (0-0.2); ABS Eosinophils 0.1 10^3/ul (0-0.6); ABS Lymphocytes 0.8 10^3/ul (1.0-4.8); ABS Monocytes 0.9 10^3/ul (0-0.8); ABS Neutrophils 6.2 10^3/ul (1.5-7.7); ABS Nucleated RBC 0 10^3/ul; Hematocrit 36 % (42-52); Hemoglobin 12.3 g/dl (14.0-18.0); Lymphocyte % 10.1 % (25-47); Mean Corpuscular HGB Conc 35 g/dl (31-36); Mean Corpuscular Hemoglobin 35 pg (27-31); Mean Corpuscular Volume 100 fL (80-94); Mean Platelet Volume 7 um3 (7.4-10.4); Nucleated Red Blood Cells % 0; Platelet Count 314 10^3/ul (150-450); Red Blood Count 3.56 10^6/ul (4.0-5.4); Red Cell Distribution Width 13 % (10.5-15)
--- NOTE | 2017-12-30 07:33 | PN ---
Subjective Date of Service: 12/30/17 Interval History: Overnight, the patient remained on propofol, 50 mcg, currently on 40mcg. He became hypotensive two separate times last night requiring 1L NS each time ( total of 2L). Otherwise, remained sedated all night, no agitation. OG tube in place. Low grade fevers yesterday evening. Events since admission reviewed. Neurosurgery note reviewed. No intervention at this time but suspect central cord. On exam yesterday Dr. Adams noted: 4- Deltoid weakness bilaterally, bilateral wrist drop and 4- right triceps weakness, concerning for C7 lesion. He could raise his legs off the bed several inches but dropped them immediately. He was arousable yesterday. -MRI C-spine repeated yesterday shows significant stenosis C3-6 with prevertebral soft tissue edema (films reviewed). -MRI Brain shows falcine subdural, although not well visualized on CTA yesterday which showed no significant stenosis or vascular abnormalities. Family History: Unchanged from Admission Social History: Unchanged from Admission Past Medical History: Unchanged from Admission Objective Active Medications: Chlorhexidine Gluconate (Peridex Mouth Wash 0.12%*) 15 ml TOPICAL Q4H [facility] Last Admin: 12/30/17 05:42 Dose: 15 ml Device (Nicotine Mouth Piece*) 1 each INH .USE WITH NICOTROL PRN PRN Reason: CRAVING Famotidine (Pepcid Iv*) 20 mg IV SLOW PU DAILY [facility] Heparin Sodium (Porcine) (Heparin Vial(*)) 5,000 units SUBCUT Q8HR [facility] Last Admin: 12/30/17 05:42 Dose: 5,000 units Sodium Chloride (Ns 0.9% 1000 Ml*) 1,000 mls @ 125 mls/hr IV PER RATE [facility] Last Admin: 12/29/17 16:46 Dose: 125 mls/hr Propofol (Diprivan*) 100 mls @ 0 mls/hr IV .(Initial Rate) [facility]; Per Protocol PRN Reason: Protocol Last Admin: 12/30/17 03:35 Dose: 22 mls/hr Lorazepam (Ativan Inj*) 1 mg IV PUSH Q4H PRN PRN Reason: ANXIETY Last Admin: 12/30/17 05:42 Dose: 1 mg Metoprolol Tartrate (Lopressor Iv*) 5 mg IV Q6H [facility] Last Admin: 12/30/17 02:55 Dose: Not Given Nicotine (Nicotine Inhaler*) 10 mg INH Q2H PRN PRN Reason: CRAVING Nicotine (Nicotine Patch 21 Mg/24 Hr*) 1 patch TRANSDERM DAILY@0800 [facility] Last Admin: 12/29/17 12:13 Dose: 1 patch Ondansetron HCl (Zofran Inj*) 4 mg IV Q4H PRN PRN Reason: NAUSEA/VOMITING Pharmacy Profile Note (Nicotine Patch Removal Note*) 1 note FOLLOW UP 2100 [facility] Last Admin: 12/29/17 21:56 Dose: 1 note Thiamine HCl (Vitamin B-1 Tab*) 100 mg PO TID [facility] Vital Signs 12/29/17 12/29/17 12/29/17 08:00 08:25 09:33 Temperature 98.8 F Pulse Rate 82 Respiratory 36 40 38 Rate Blood Pressure 163/78 (mmHg) O2 Sat by Pulse 99 Oximetry 12/29/17 12/29/17 12/29/17 09:47 11:45 11:53 Temperature 101.4 F 99.7 F Pulse Rate 88 87 Respiratory 36 40 32 Rate Blood Pressure 140/74 156/81 (mmHg) O2 Sat by Pulse 98 96 Oximetry 12/29/17 12/29/17 12/29/17 11:55 12:13 13:43 Temperature 99.7 F Pulse Rate 81 Respiratory 32 34 40 Rate Blood Pressure 152/76 (mmHg) O2 Sat by Pulse 97 Oximetry 12/29/17 12/29/17 12/29/17 15:00 15:05 15:09 Temperature Pulse Rate 88 86 Respiratory 31 30 40 Rate Blood Pressure 177/91 176/91 (mmHg) O2 Sat by Pulse 97 96 Oximetry 12/29/17 12/29/17 12/29/17 15:10 15:21 15:25 Temperature Pulse Rate 73 75 76 Respiratory 9 Rate Blood Pressure 181/83 123/69 124/72 (mmHg) O2 Sat by Pulse 93 98 100 Oximetry 12/29/17 12/29/17 12/29/17 15:30 15:35 15:41 Temperature 97.9 F Pulse Rate 74 78 78 Respiratory Rate Blood Pressure 132/77 119/67 139/78 (mmHg) O2 Sat by Pulse 97 99 98 Oximetry 12/29/17 12/29/17 12/29/17 15:45 15:50 16:00 Temperature 98.8 F 99.3 F 99.9 F Pulse Rate 80 78 82 Respiratory Rate Blood Pressure 140/76 135/78 116/70 (mmHg) O2 Sat by Pulse 99 100 99 Oximetry 12/29/17 12/29/17 12/29/17 16:16 16:18 16:30 Temperature 100.0 F 100.2 F 100.2 F Pulse Rate 79 79 79 Respiratory 31 Rate Blood Pressure 154/83 177/91 114/72 (mmHg) O2 Sat by Pulse 100 97 100 Oximetry 12/29/17 12/29/17 12/29/17 16:45 17:00 17:15 Temperature 100.2 F 100.0 F 100.0 F Pulse Rate 78 78 81 Respiratory 14 Rate Blood Pressure 130/76 140/84 132/73 (mmHg) O2 Sat by Pulse 100 100 100 Oximetry 12/29/17 12/29/17 12/29/17 17:30 17:45 18:00 Temperature 100.0 F 100.0 F 100.0 F Pulse Rate 78 77 80 Respiratory 19 Rate Blood Pressure 115/71 124/75 139/80 (mmHg) O2 Sat by Pulse 99 99 100 Oximetry 12/29/17 12/29/17 12/29/17 18:16 18:30 18:45 Temperature 100.0 F 100.0 F 100.0 F Pulse Rate 85 83 80 Respiratory Rate Blood Pressure 161/88 138/73 126/65 (mmHg) O2 Sat by Pulse 99 99 99 Oximetry 12/29/17 12/29/17 12/29/17 19:00 19:15 19:30 Temperature 100.0 F 100.0 F 99.9 F Pulse Rate 80 80 89 Respiratory 21 Rate Blood Pressure 111/64 90/54 88/53 (mmHg) O2 Sat by Pulse 98 97 97 Oximetry 12/29/17 12/29/17 12/29/17 19:38 20:00 20:15 Temperature 99.9 F 99.9 F 99.9 F Pulse Rate 88 87 85 Respiratory 22 Rate Blood Pressure 92/55 95/53 87/54 (mmHg) O2 Sat by Pulse 97 97 96 Oximetry 12/29/17 12/29/17 12/29/17 20:30 20:42 20:45 Temperature 99.7 F 99.7 F 99.7 F Pulse Rate 88 87 87 Respiratory Rate Blood Pressure 83/47 85/49 85/52 (mmHg) O2 Sat by Pulse 96 96 97 Oximetry 12/29/17 12/29/17 12/29/17 21:00 21:15 21:30 Temperature 99.5 F 99.5 F 99.3 F Pulse Rate 88 89 88 Respiratory 22 Rate Blood Pressure 87/51 86/52 96/55 (mmHg) O2 Sat by Pulse 97 97 98 Oximetry 12/29/17 12/29/17 12/29/17 21:45 22:00 22:15 Temperature 99.1 F 99.0 F 98.8 F Pulse Rate 86 86 79 Respiratory 22 Rate Blood Pressure 96/57 103/59 115/67 (mmHg) O2 Sat by Pulse 98 99 99 Oximetry 12/29/17 12/29/17 12/29/17 22:24 22:30 22:45 Temperature 98.6 F 98.6 F Pulse Rate 75 76 Respiratory 22 Rate Blood Pressure 123/72 125/69 (mmHg) O2 Sat by Pulse 99 99 Oximetry 12/29/17 12/29/17 12/29/17 23:00 23:03 23:15 Temperature 98.8 F 98.8 F 98.8 F Pulse Rate 77 79 78 Respiratory 21 Rate Blood Pressure 117/67 108/63 (mmHg) O2 Sat by Pulse 98 98 98 Oximetry 12/29/17 12/29/17 12/30/17 23:30 23:45 00:00 Temperature 99.0 F 99.1 F 99.0 F Pulse Rate 78 78 82 Respiratory 21 Rate Blood Pressure 108/61 103/61 91/53 (mmHg) O2 Sat by Pulse 98 95 94 Oximetry 12/30/17 12/30/17 12/30/17 00:15 00:30 00:45 Temperature 99.0 F 99.0 F 99.0 F Pulse Rate 76 77 Respiratory Rate Blood Pressure 91/52 111/65 102/59 (mmHg) O2 Sat by Pulse 97 96 Oximetry 12/30/17 12/30/17 12/30/17 01:00 01:15 01:30 Temperature 99.0 F 99.0 F 99.1 F Pulse Rate 82 81 82 Respiratory 30 Rate Blood Pressure 99/59 103/58 97/60 (mmHg) O2 Sat by Pulse 96 96 96 Oximetry 12/30/17 12/30/17 12/30/17 01:45 02:00 02:15 Temperature 99.1 F 99.1 F 99.1 F Pulse Rate 82 82 80 Respiratory 25 Rate Blood Pressure 100/61 101/58 111/67 (mmHg) O2 Sat by Pulse 95 95 97 Oximetry 12/30/17 12/30/17 12/30/17 02:30 02:45 02:54 Temperature 99.0 F 99.1 F Pulse Rate 82 88 Respiratory 34 Rate Blood Pressure 142/85 136/86 (mmHg) O2 Sat by Pulse 99 100 Oximetry 12/30/17 12/30/17 12/30/17 03:00 03:15 03:30 Temperature 99.3 F 99.3 F 99.3 F Pulse Rate 79 80 79 Respiratory 26 Rate Blood Pressure 128/66 104/62 88/50 (mmHg) O2 Sat by Pulse 97 95 92 Oximetry 12/30/17 12/30/17 12/30/17 03:46 04:00 04:15 Temperature 99.3 F 99.1 F 99.0 F Pulse Rate 78 77 85 Respiratory 30 Rate Blood Pressure 82/47 84/46 92/57 (mmHg) O2 Sat by Pulse 92 92 94 Oximetry 12/30/17 12/30/17 12/30/17 04:30 04:45 05:00 Temperature 98.8 F 98.4 F 98.1 F Pulse Rate 81 73 79 Respiratory 22 Rate Blood Pressure 97/56 99/57 105/63 (mmHg) O2 Sat by Pulse 95 96 97 Oximetry 12/30/17 12/30/17 12/30/17 05:15 05:30 05:42 Temperature 97.9 F 98.1 F Pulse Rate 72 80 Respiratory 29 Rate Blood Pressure 117/65 145/81 (mmHg) O2 Sat by Pulse 98 96 Oximetry 12/30/17 12/30/17 12/30/17 05:45 06:00 07:00 Temperature 98.2 F 98.6 F 99.5 F Pulse Rate 82 79 80 Respiratory 25 Rate Blood Pressure 154/84 (mmHg) O2 Sat by Pulse 96 95 93 Oximetry Oxygen Devices in Use Now: Mechanical Ventilator Neurology Exam: General: HEENT: Normocephalic, facial trauma with scattered lacerations Neck: In c-collar Chest: Clear to auscultation bilaterally Cardiovascular: Regular rate and rhythm without murmurs, rubs, gallops Abdomen: Distended but soft Extremities: No cyanosis. 1+ non-pitting edema in the feet to ankles bilaterally. Neurological Findings: Sedated on propofol which was turned off at 7:20 am (Immediately off sedation) Dose not arouse to loud noise or sternal rub Speech: ET tube in place Cranial Nerve: Pupils 2mm to 1mm, sluggish, symmetric. Face appears grossly symmetric, No blink to threat, Could not Doll's eye due to C-collar Motor: No spontaneous movement Sensation: Does not withdraw to pain X 4. Deep Tendon Reflex: Upgoing Babinski bilaterally, 3+ BC, BR bilaterrally, 3+ patella, 1+ ankles bilaterally (Off sedation X 15-20 min) Biting ET, coughing, positive gag with deep suction Pupils: 3mm to 2mm, sluggish, symmetric, opens eyes will not track, minimal blink to threat Arouses to loud noise, painful stimuli Nods occasionally to questioning Painful stimuli: Moves right arm slightly, no significant w/d X 4, winces with pain in the upper extremities. No spontaneous movement X 4, will wiggle toes to command, no movement of upper extremities to command DTRs: unchanged, upgoing Babinski Result Diagrams: 12/30/17 07:16 12/30/17 07:16 Additional Lab and Data: Assessment/Plan Assessment: 62 year old with history of HTN, heavy EtOH abuse, last drink December 25, status post fall with neck and facial injury. Currently sedated but previous exams with bilaterally upper extremity weakness, bilateral wrist drop. C-spine MRI shows significant stenosis at C3-6, concern for spinal cord injury --Weakness: --At this point, he remains sedated for agitation. He did awaken off propofol but shows no significant movement of the upper extremities. It is difficult to tell if this is prolonged propofol effect, encephalopathy secondary to EtOH use or related to spinal cord injury. --Once he is weaned from propofol, we can get a more reliable examination. --Neurosurgery following, no intervention at this point. Continue C-collar. Small sub-dural seen on MRI likely not contributing to symptoms. Steroids? --EtOH W/D. Now 6 days out from last drink. Did receive BZD last night for agitation. -EtOH w/d encephalopathy could be playing a role, no reported seizure like activity. Ammonia 55-->56-->57. -Minimizing prn BZD as much as possible. Off taper -Continue medical management and supportive care. -On Thiamine --Low grade fevers: WBC down today. Source unclear. Continue to monitor 12:45 pm Came back by to check on patient. Remains on propofol. currently 35mcg. Fever. Spoke with Dr. Jaimes: Plan is to keep him sedated today, possible tomorrow and then wean off propofol. Once he is off, we will be able to get a better exam.
[2017-12-30] MEDS: Nicotine PATCH 21 MG/24 HR* PATCH TRANSDERM SCH (07:46)
[2017-12-30] MEDS: Famotidine IV* 10 MG/ML 2 ML (20 mg) IV SLOW PU SCH (07:47)
[2017-12-30] MEDS: Thiamine TAB* 100 MG TAB PO SCH ×3 (07:48→21:56)
[2017-12-30 07:55] LABS: EGFR Non-African American 167.9 (>60)
[2017-12-30] MEDS ORDERED: Famotidine IV * 20 MG in NS 0.9% 100 ML* 100 ML IVPB SCH (09:00)
--- NOTE | 2017-12-30 12:05 | CONSULT ---
Consult Consult: CRITICAL CARE MEDICINE LATE ENTRY DATE: 12/29/17 TIME: 1400 REFERRING PROVIDER: Belkis REASON/CHIEF COMPLAINT: airway compromise HISTORY OF PRESENT ILLNESS: 62 M with h/o etoh abuse presenting 12/25 post fall down flight of stairs with acute intoxication (etoh 187). Admitted to medical service for instability and acute etoh withdrawal concerns. Undergoing wam protocol and recieving benzos. multiple episodes of agitation. More somulent on 12/29 am with sonorous respirations. had been evaluated by neuro the day prior with concerns for bl wrist drop and mri cervical repeated as prior with artifact. concern for C7 injury. Pt less arousable through day on 12/29 and not clearing secretions with inc O2 needs and brought down to ICU. He had increased rr, so less concern for diaphagmatic failure, but he was more lethargic to obtunded with nml pH, with c collar in place but sonorous resp that somewhat improved with tongue protrusion but not dissipated. Weak cough. poor gag. suctioned with thick secretions. He was able to flex his knees and move his feet but would not move them to painful stimuli and I could not get him to move his arms voluntarily nor with painful stimuli. Given all these concerns, made decision to secure airway and more sort out his dynamics. REVIEW OF SYSTEMS: As per HPI. PAST MEDICAL HISTORY: As per HPI. htn, cataract MEDICATIONS: Reviewed. ALLERGIES: Reviewed. SOCIAL HISTORY: Reviewed. etoh, tob; semi-retired; lives alone FAMILY HISTORY: Noncontributory at present. PHYSICAL EXAM: Vital Signs: Reviewed. Neurologic: as per hpi HEENT: abrasions and mild echymosis. Cardiovascular: distant, S1 S2 Respiratory: coarse with rhonchi and poor cough. Abdomen: soft, nt Extremities: no dep edema. has tone. Access: piv LABS: Reviewed. IMAGING: Reviewed. MEDICATIONS: Reviewed. ASSESSMENT: 62 M Acute hypoxic resp failure Acute alcohol withdrawal Benzo use combating withdrawal Cervical spine ligamentous injury- question degree, but at the moment acting like a central cord injury Small sdh Tob use Etoh use PLAN: Neurologic: concerns as above. airway control. sedation. avoid further cervical insult. propofol gtt and hold off on benzos as able and see if we can obtain better intermittent exam. d/w neuro and nsgy. no acute interventions otherwise. Cardiovascular: perfusing. ivf. Respiratory: intubation. mv protection and bundle. not much laryngeal edema but floppy tissues; can trial course of steroids or at least prior to liberation. Gastrointestinal: ogt. tf. sup. lactulose Renal/Metabolic: f/u lytes and maintain Infectious Disease: no infective burden. Hematology: stable. hsq Endocrine: f/u bg Musculoskeletal: nondisplaced fx. local care. nsgy f/u cervical needs; remain in c collar Psych/Social: friend at bedside briefly updated and will d/w pts daughter; suppl. nicotine td Supportive and preventative care as ordered. SUP: H2 VTE prophylaxis: heparin Coughlin catheter given critical illness, monitoring needs for accurate assessment of RICKIE and KDIGO criteria for critically ill patients and to avoid potential harms of urinary retention, skin breakdown/ulcers. Disposition: ICU Code Status: Full Critical Care Time: 45min, excluding procedures. ADDENDUM: Post intubation, wake up assessment, pt spontaneously moving both arms and legs. Arms were moving more proximal but still with tone and movement. Not following commands and requiring sedation for agitation. Jose Jaimes, DO
--- NOTE | 2017-12-30 12:08 | PN ---
Progress Note - Progress Note Date of Service: 12/30/17 Note: CRITICAL CARE MEDICINE PROCEDURE NOTE DATE: 12/30/17 TIME: 1430 SERVICE: Critical Care Medicine LOCATION OF PROCEDURE: ICU PROCEDURE: Endotracheal intubation PROCEDURALIST: Dr. Jaimes Consent obtain: No, procedure performed emergently Time out held: Not indicated INDICATION: Acute respiratory failure with airway compromise. PROCEDURE: Oxygenation maintained and vitals monitored. Patient in supine position. Pre-medication with fentanyl 200mcg, versed 6mg, and then post propofol 50mg. Glidescope #4 inserted with Grade 2 view obtained. 7.5 endotracheal tube inserted to 26cm lip. Good chest rise with breath sounds appreciated in bilaterally lung moran. EtCO2 + color change. Portable chest x-ray - ett a touch high but ok. Patient otherwise tolerated. Jose Jaimes DO
--- NOTE | 2017-12-30 12:16 | PN ---
Progress Note - Progress Note Date of Service: 12/30/17 Note: CRITICAL CARE MEDICINE DATE: 12/30/17 TIME: 1100 SUBJECTIVE: Patient seen and examined. on nursing wake up pt moving all ext. PHYSICAL EXAM: Vital Signs: Reviewed. Neurologic: gl[place], but remaining sedate for now. HEENT: abrasions and mild echymosis in evolution. ett. ogt Cardiovascular: distant, reg S1 S2 Respiratory: coarse without rhonchi. 25% Abdomen: soft, nt Extremities: no edema. has tone. abrasions. Access: piv LABS: Reviewed. IMAGING: Reviewed. MEDICATIONS: Reviewed. ASSESSMENT: 62 M Acute hypoxic resp failure Acute alcohol withdrawal Benzo use combating withdrawal Cervical spine ligamentous injury ?C7 involvement Small sdh Tob use Etoh use PLAN: Neurologic: stabilized. at least acting better then central core syndrome at this time but close f/u. airway protection today. continued neuro assessment and once liberated can f/u exam but no acute interventions. Cardiovascular: perfusing. ivf off later today. no shock. Respiratory: maintain intubation. f/u cuff leak. re-eval tomorrow for potential liberation opportunities. add steroids for what its worth for edema. Gastrointestinal: ogt. tf. sup. needs lactulose Renal/Metabolic: f/u lytes and maintain Infectious Disease: no infective burden. Hematology: stable. hsq Endocrine: f/u bg Musculoskeletal: f/u; eventual pt, rehabs needs etc Psych/Social: daughter and pts brother at bedside updated Supportive and preventative care as ordered. SUP: H2 VTE prophylaxis: heparin Coughlin catheter given critical illness, monitoring needs for accurate assessment of RICKIE and KDIGO criteria for critically ill patients and to avoid potential harms of urinary retention, skin breakdown/ulcers. Disposition: ICU Code Status: Full Critical Care Time: 35min. Jose Jaimes DO
[2017-12-30] MEDS ORDERED: Dexamethasone IV* 4 MG in NS 0.9% 50 ML* 50 ML IVPB SCH (13:00)
[2017-12-30] MEDS: Folic Acid TAB* 1 MG G TUBE SCH (13:04)
[2017-12-30] MEDS: Dexamethasone IV* 4 MG/ML 1 ML (4 MG) IV SLOW PU SCH ×2 (13:04→19:33)
[2017-12-30] MEDS: NS 0.9% 1000 ML* 1,000 ML IV SCH ×2 (13:38→21:56)
[2017-12-30] MEDS: Nicotine Patch Removal NOTE FOLLOW UP SCH (21:57)
[2017-12-31] MEDS: Dexamethasone IV* 4 MG/ML 1 ML (4 MG) IV SLOW PU SCH ×4 (02:56→17:38)
[2017-12-31] MEDS: Chlorhexidine MOUTHWASH 0.12%* 15 ML UDC TOPICAL SCH ×6 (02:56→22:35)
[2017-12-31] MEDS: Metoprolol Tartrate IV* 1 MG/ML 5 ML VIAL IV SCH ×4 (02:57→20:32)
[2017-12-31] MEDS: Propofol* 100 ML IV SCH ×2 (04:26→20:23)
[2017-12-31 05:52] LABS: ABS Basophils 0 10^3/ul (0-0.2); ABS Eosinophils 0 10^3/ul (0-0.6); ABS Lymphocytes 0.4 10^3/ul (1.0-4.8); ABS Monocytes 0.4 10^3/ul (0-0.8); ABS Neutrophils 7.4 10^3/ul (1.5-7.7); ABS Nucleated RBC 0 10^3/ul; Eosinophil % 0 % (0-6); Hematocrit 36 % (42-52); Hemoglobin 12.1 g/dl (14.0-18.0); Lymphocyte % 4.5 % (25-47); Mean Corpuscular HGB Conc 34 g/dl (31-36); Mean Corpuscular Hemoglobin 34 pg (27-31); Mean Corpuscular Volume 100 fL (80-94); Mean Platelet Volume 7 um3 (7.4-10.4); Nucleated Red Blood Cells % 0; Platelet Count 386 10^3/ul (150-450); Red Blood Count 3.56 10^6/ul (4.0-5.4); Red Cell Distribution Width 13 % (10.5-15); White Blood Count 8.1 10^3/ul (3.5-10.8)
[2017-12-31] MEDS: Heparin VIAL(*) 5000 UNITS/ML VIAL (FIVE THOUSAND) SUBCUT SCH ×3 (06:28→22:35)
[2017-12-31] MEDS: NS 0.9% 1000 ML* 1,000 ML IV SCH (06:34)
[2017-12-31] MEDS: Nicotine PATCH 21 MG/24 HR* PATCH TRANSDERM SCH (08:36)
[2017-12-31] MEDS: Folic Acid TAB* 1 MG G TUBE SCH (08:36)
[2017-12-31] MEDS: Famotidine IV* 10 MG/ML 2 ML (20 mg) IV SLOW PU SCH (08:36)
[2017-12-31] MEDS: Thiamine TAB* 100 MG TAB PO SCH ×3 (08:36→20:32)
[2017-12-31] MEDS ORDERED: fentaNYL* 50 MCG/ML 2 ML VIAL (100 MCG VIAL) IV SLOW PU ONE (11:13)
[2017-12-31] MEDS ORDERED: fentaNYL* 50 MCG/ML 2 ML VIAL (100 MCG VIAL) ONE ×2 (11:20→13:35)
--- NOTE | 2017-12-31 11:38 | PN ---
Progress Note - Progress Note Date of Service: 12/31/17 Note: CRITICAL CARE MEDICINE DATE: 12/31/17 TIME: 1035 SUBJECTIVE: Patient seen and examined. PHYSICAL EXAM: Vital Signs: Reviewed. Neurologic: gl[place] but wrist weak. off prop, c/o overall pain. HEENT: anicteric, perrl, ett. +cuff leak. ogt Cardiovascular: distant, reg S1 S2 Respiratory: coarse with R sided rhonchi. 25%. MV 13lpm Abdomen: soft, nt Extremities: dep edema. Access: piv LABS: Reviewed. IMAGING: Reviewed. MEDICATIONS: Reviewed. ASSESSMENT: 62 M Acute hypoxic resp failure Acute alcohol withdrawal Benzo use combating withdrawal Cervical spine ligamentous injury ?C7 involvement Small sdh Tob use Etoh use PLAN: Neurologic: stabilized. at least gl[place]. off prop. trial precedex. prn pain management. Cardiovascular: perfusing. ivf off. mild fluid overload. allow him to mobilize. Respiratory: maintain intubation this am. cpap and if mentation conitnues to improve and mv relaxes can look to liberate as soon as today, but may still wait till tomorrow. keeping steroids today. Gastrointestinal: ogt. tf. sup. lactulose Renal/Metabolic: lytes maintained Infectious Disease: no infective burden. Hematology: stable. hsq Endocrine: f/u bg ok Musculoskeletal: f/u pt, rehabs needs Psych/Social: daughter and pts brother at bedside updated Supportive and preventative care as ordered. SUP: H2 VTE prophylaxis: heparin Coughlin catheter given critical illness, monitoring needs for accurate assessment of RICKIE and KDIGO criteria for critically ill patients and to avoid potential harms of urinary retention, skin breakdown/ulcers. Disposition: ICU Code Status: Full Critical Care Time: 35min. Jose Jaimes DO
[2017-12-31] MEDS: Dexmedetomidine* 200 MCG in NS 0.9% 50 ML* 48 ML IVPB SCH ×4 (13:22→22:05)
[2017-12-31] MEDS ORDERED: fentaNYL* 50 MCG/ML 2 ML VIAL (100 MCG VIAL) IV SLOW PU PRN (13:33)
[2017-12-31] MEDS ORDERED: Propofol* 100 ML ONE (14:07)
[2017-12-31] MEDS: Nicotine Patch Removal NOTE FOLLOW UP SCH (20:32)
--- NOTE | 2017-12-31 21:54 | CONS ---
NEUROLOGY FOLLOWUP: DATE OF FOLLOWUP: 12/31/14 SENIOR STORAGE ENGINEER: Dr. Jaimes. LOCATION: He is in ICU bed 5. CHIEF COMPLAINT: Weakness, delirium. INTERVAL HISTORY: Since yesterday, Odell has remained on propofol and intubated. Currently, propofol is infusing as he was quite agitated and reaching for his tubes. His nurses said that he moves his legs pretty vigorously and tries to reach the tube with his arms. MEDICATIONS: Reviewed. 1. In addition to propofol, he is on dexamethasone 4 mg IV q.6 hours. 2. Precedex. 3. Famotidine IV 20 mg daily. 4. Fentanyl 25 mg IV q.2 hours p.r.n. 5. Folic acid 1 mg daily NG tube. 6. Heparin 5000 units subcu q.8 hours. 7. Lactulose 30 mL NG tube b.i.d. 8. Metoprolol 5 mg IV q.6 hours. PHYSICAL EXAM: He is heavily sedated. Temperature 98.8 by Coughlin probe, blood pressure 138/79, heart rate in the 60s. He has multiple healing abrasions on his face and legs. He has decreased muscle tone in all limbs. He has bilateral Babinski signs. He restlessly moves his legs when stimulated. IMPRESSION: Cervical cord injury and delirium. Hopefully, he will be well enough tomorrow to be extubated and get a better assessment of his motor function. His laboratories are reviewed and ammonia level is 57 yesterday. I will plan on examining him in more detail tomorrow. [id number]/[facility] #: [id number]
[2017-12-31] MEDS ORDERED: Insulin REGULAR(*) 1 UNITS UNIT SUBCUT ONE (22:00)
[2017-12-31] MEDS: Insulin LISPRO* 1 UNITS UNIT SUBCUT SCH (22:35)
[2018-01-01] MEDS: Insulin LISPRO* 1 UNITS UNIT SUBCUT SCH ×4 (01:44→14:53)
[2018-01-01] MEDS: Dexamethasone IV* 4 MG/ML 1 ML (4 MG) IV SLOW PU SCH ×3 (01:44→14:40)
[2018-01-01] MEDS: Metoprolol Tartrate IV* 1 MG/ML 5 ML VIAL IV SCH ×4 (01:44→20:54)
[2018-01-01] MEDS: Propofol* 100 ML IV SCH ×2 (01:45→06:47)
[2018-01-01] MEDS: Dexmedetomidine* 200 MCG in NS 0.9% 50 ML* 48 ML IVPB SCH ×4 (01:46→14:40)
[2018-01-01] MEDS: Chlorhexidine MOUTHWASH 0.12%* 15 ML UDC TOPICAL SCH ×3 (03:50→12:16)
[2018-01-01] MEDS: Heparin VIAL(*) 5000 UNITS/ML VIAL (FIVE THOUSAND) SUBCUT SCH ×3 (05:31→21:17)
[2018-01-01 06:06] LABS: ABS Basophils 0.1 10^3/ul (0-0.2); ABS Eosinophils 0 10^3/ul (0-0.6); ABS Lymphocytes 0.5 10^3/ul (1.0-4.8); ABS Monocytes 0.8 10^3/ul (0-0.8); ABS Nucleated RBC 0 10^3/ul; Eosinophil % 0 % (0-6); Hematocrit 38 % (42-52); Lymphocyte % 3.7 % (25-47); Mean Corpuscular HGB Conc 34 g/dl (31-36); Mean Corpuscular Hemoglobin 34 pg (27-31); Mean Corpuscular Volume 99 fL (80-94); Mean Platelet Volume 7 um3 (7.4-10.4); Nucleated Red Blood Cells % 0; Platelet Count 465 10^3/ul (150-450); Red Blood Count 3.85 10^6/ul (4.0-5.4); Red Cell Distribution Width 13 % (10.5-15); White Blood Count 12.3 10^3/ul (3.5-10.8)
[2018-01-01 06:24] LABS: EGFR Non-African American 147.4 (>60)
[2018-01-01] MEDS: Nicotine PATCH 21 MG/24 HR* PATCH TRANSDERM SCH (07:51)
[2018-01-01] MEDS: Famotidine IV* 10 MG/ML 2 ML (20 mg) IV SLOW PU SCH (07:51)
[2018-01-01] MEDS: Thiamine TAB* 100 MG TAB PO SCH ×3 (07:52→21:15)
[2018-01-01] MEDS: Folic Acid TAB* 1 MG G TUBE SCH (07:52)
--- NOTE | 2018-01-01 11:23 | PN ---
Progress Note - Progress Note Date of Service: 01/01/18 Note: CRITICAL CARE MEDICINE DATE: 01/01/18 TIME: 1100 SUBJECTIVE: Patient seen and examined. PHYSICAL EXAM: Vital Signs: Reviewed. Neurologic: [place]asgow but wrist weak. off prop and waiting for more response. HEENT: anicteric, perrl, ett. +cuff leak. ogt Cardiovascular: distant, reg S1 S2 Respiratory: mild R sided rhonchi. 21%. changed to aprv to quick recruit this am. MV 11lpm as he awakes from sedation Abdomen: soft, nt Extremities: dep edema. Access: piv LABS: Reviewed. IMAGING: Reviewed. MEDICATIONS: Reviewed. ASSESSMENT: 62 M Acute hypoxic resp failure Acute alcohol withdrawal Benzo use combating withdrawal Cervical spine ligamentous injury ?C7 involvement Small sdh Tob use Etoh use PLAN: Neurologic: stable. collar. [place]. off prop. keep precedex thru extubation. prn pain management. neuro f/u today Cardiovascular: perfusing. fluid ok Respiratory: liberate today. airway obs. can come off steroids later today. Gastrointestinal: ogt. tf held. sup. ammonia still up and can f/u lactulose needs Renal/Metabolic: lytes repleted Infectious Disease: no infective burden. Hematology: stable. hsq Endocrine: bg up post steroids. ssi Musculoskeletal: f/u pt, rehabs needs Psych/Social: daughter and pts brother at bedside updated Supportive and preventative care as ordered. SUP: H2 VTE prophylaxis: heparin Coughlin catheter given critical illness, monitoring needs for accurate assessment of RICKIE and KDIGO criteria for critically ill patients and to avoid potential harms of urinary retention, skin breakdown/ulcers. Disposition: ICU Code Status: Full Critical Care Time: 35min. Jose Jaimes DO
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
[2018-01-01] MEDS: LORazepam INJ* 2 MG/ML 1 ML VIAL IV PUSH PRN ×3 (19:45→23:58)
[2018-01-01] MEDS: Nicotine Patch Removal NOTE FOLLOW UP SCH (21:12)
[2018-01-01] MEDS ORDERED: LORazepam INJ* 2 MG/ML 1 ML VIAL IV PUSH ONE (22:00)
[2018-01-02] MEDS: Metoprolol Tartrate IV* 1 MG/ML 5 ML VIAL IV SCH ×2 (03:50→08:48)
[2018-01-02] MEDS: Heparin VIAL(*) 5000 UNITS/ML VIAL (FIVE THOUSAND) SUBCUT SCH ×4 (04:51→20:02)
[2018-01-02 05:12] LABS: Hematocrit 38 % (42-52); Mean Corpuscular HGB Conc 34 g/dl (31-36); Mean Corpuscular Hemoglobin 34 pg (27-31); Mean Corpuscular Volume 100 fL (80-94); Mean Platelet Volume 7 um3 (7.4-10.4); Platelet Count 497 10^3/ul (150-450); Red Blood Count 3.82 10^6/ul (4.0-5.4); Red Cell Distribution Width 13 % (10.5-15); White Blood Count 9.5 10^3/ul (3.5-10.8)
[2018-01-02 05:31] LABS: EGFR Non-African American 133.5 (>60)
[2018-01-02] MEDS: Folic Acid TAB* 1 MG G TUBE SCH (08:48)
[2018-01-02] MEDS: Thiamine TAB* 100 MG TAB PO SCH ×3 (08:48→20:02)
[2018-01-02] MEDS ORDERED: Magnesium Sulfate 2 GM IV* 2 GM/50 ML BAG IVPB ONE (10:19)
[2018-01-02] MEDS ORDERED: Potassium Chlor TAB* 20 MEQ TAB.ER PO ONE ×2 (10:19→14:00)
--- NOTE | 2018-01-02 10:45 | PN ---
Progress Note - Progress Note Date of Service: 01/02/18 Note: CRITICAL CARE MEDICINE DATE: 01/02/18 TIME: 930 SUBJECTIVE: Patient seen and examined. PHYSICAL EXAM: Vital Signs: Reviewed. Neurologic: glasgow but wrist weak bl but somewhat better and more digit movement. HEENT: anicteric, perrl, no stridor. Cardiovascular: distant, reg S1 S2 Respiratory: clear. coming off o2 Abdomen: soft, nt Extremities: mild dep edema; chronic poor circulation Access: piv LABS: Reviewed. IMAGING: Reviewed. MEDICATIONS: Reviewed. ASSESSMENT: 62 M Acute hypoxic resp failure - recovered Acute alcohol withdrawal - improved Benzo use combating withdrawal - clearing Hepatic encephalopathy Cervical spine ligamentous injury ?C7 involvement Small sdh Tob use Etoh use PLAN: Neurologic: stable. collar. neuro/nsgy f/u. question when f/u imaging needs Cardiovascular: perfusing. fluid ok Respiratory: sarah beth well. wean off o2 Gastrointestinal: advance diet. lactulose can change to daily. Renal/Metabolic: replete lytes Infectious Disease: no infective burden. Hematology: stable. hsq Endocrine: off steroids. off ssi. Musculoskeletal: pt, rehabs needs Psych/Social: daughter and pts brother at bedside updated Supportive and preventative care as ordered. SUP: H2 VTE prophylaxis: heparin Coughlin catheter out later Disposition: to floor Code Status: Full Critical Care Time: 30min. Jose Jaimes DO
[2018-01-02] MEDS ORDERED: Metoprolol Tartrate TAB* 25 MG PO SCH (11:00)
[2018-01-02] MEDS: Nicotine PATCH 21 MG/24 HR* PATCH TRANSDERM SCH (11:23)
[2018-01-02] MEDS: Metoprolol Tartrate TAB* 50 mg PO SCH ×2 (11:23→20:01)
[2018-01-02] MEDS: fentaNYL* 50 MCG/ML 2 ML VIAL (100 MCG VIAL) IV SLOW PU PRN (19:58)
[2018-01-02] MEDS: Acetaminophen TAB* 325 MG PO PRN (20:01)
[2018-01-02] MEDS: Nicotine Patch Removal NOTE FOLLOW UP SCH (20:03)
[2018-01-02] MEDS: LORazepam INJ* 2 MG/ML 1 ML VIAL IV PUSH PRN (21:51)
[2018-01-03] MEDS: Heparin VIAL(*) 5000 UNITS/ML VIAL (FIVE THOUSAND) SUBCUT SCH ×3 (05:55→20:58)
[2018-01-03] MEDS: Omeprazole CAP* 20 MG PO SCH (05:55)
[2018-01-03] MEDS: Thiamine TAB* 100 MG TAB PO SCH ×3 (08:45→20:57)
[2018-01-03] MEDS: Metoprolol Tartrate TAB* 50 mg PO SCH ×2 (08:45→20:56)
[2018-01-03] MEDS: Nicotine PATCH 21 MG/24 HR* PATCH TRANSDERM SCH (08:45)
[2018-01-03] MEDS: Folic Acid TAB* 1 MG PO SCH (08:45)
[2018-01-03] MEDS: Acetaminophen TAB* 325 MG PO PRN (10:32)
--- NOTE | 2018-01-03 10:36 | PN ---
Subjective Date of Service: 01/03/18 Interval History: Pt feels well. As per RN required Tita lift yesterday, but today will try to get him OOB with assist. still has rectal tube in with a lot of output of large amounts of loose stool. Coughlin in place Family History: Unchanged from Admission Social History: Unchanged from Admission Past Medical History: Unchanged from Admission Objective Active Medications: Acetaminophen (Tylenol Tab*) 650 mg PO Q6H PRN PRN Reason: FEVER/PAIN Last Admin: 01/02/18 20:01 Dose: 650 mg Device (Nicotine Mouth Piece*) 1 each INH .USE WITH NICOTROL PRN PRN Reason: CRAVING Fentanyl Citrate (Fentanyl*) 25 mcg IV SLOW PU Q4H PRN PRN Reason: PAIN - MODERATE Last Admin: 01/02/18 19:58 Dose: 25 mcg Folic Acid (Folvite Tab*) 1 mg PO DAILY [facility] Last Admin: 01/03/18 08:45 Dose: 1 mg Heparin Sodium (Porcine) (Heparin Vial(*)) 5,000 units SUBCUT Q8HR [facility] Last Admin: 01/03/18 05:55 Dose: 5,000 units Lactulose (Lactulose*) 30 ml PO DAILY [facility] Last Admin: 01/03/18 08:45 Dose: 30 ml Lorazepam (Ativan Inj*) 0.5 mg IV PUSH Q4H PRN PRN Reason: ANXIETY Last Admin: 01/02/18 21:51 Dose: 0.5 mg Metoprolol Tartrate (Lopressor Tab*) 50 mg PO BID [facility] Last Admin: 01/03/18 08:45 Dose: 50 mg Nicotine (Nicotine Inhaler*) 10 mg INH Q2H PRN PRN Reason: CRAVING Nicotine (Nicotine Patch 21 Mg/24 Hr*) 1 patch TRANSDERM DAILY@0800 [facility] Last Admin: 01/03/18 08:45 Dose: 1 patch Omeprazole (Prilosec Cap*) 20 mg PO DAILY@0600 [facility] Last Admin: 01/03/18 05:55 Dose: 20 mg Ondansetron HCl (Zofran Inj*) 4 mg IV Q4H PRN PRN Reason: NAUSEA/VOMITING Pharmacy Profile Note (Nicotine Patch Removal Note*) 1 note FOLLOW UP 2100 [facility] Last Admin: 01/02/18 20:03 Dose: Not Given Thiamine HCl (Vitamin B-1 Tab*) 100 mg PO TID [facility] Last Admin: 01/03/18 08:45 Dose: 100 mg Vital Signs - 8 hr 01/03/18 01/03/18 01/03/18 03:07 03:45 03:46 Temperature 98.5 F Pulse Rate 73 Respiratory 17 16 16 Rate Blood Pressure 162/78 (mmHg) O2 Sat by Pulse 97 Oximetry 01/03/18 01/03/18 07:32 09:04 Temperature 97.0 F Pulse Rate 73 Respiratory 16 18 Rate Blood Pressure 149/76 (mmHg) O2 Sat by Pulse 95 95 Oximetry Oxygen Devices in Use Now: None Appearance: 62 yo M in nAD, AAOx3, poor recall Eyes: No Scleral Icterus, PERRLA Ears/Nose/Mouth/Throat: NL Teeth, Lips, Gums, Mucous Membranes Moist Neck: NL Appearance and Movements; NL JVP, Trachea Midline Respiratory: Symmetrical Chest Expansion and Respiratory Effort, Clear to Auscultation Cardiovascular: NL Sounds; No Murmurs; No JVD, RRR Abdominal: NL Sounds; No Tenderness; No Distention, No Hepatosplenomegaly Lymphatic: No Cervical Adenopathy Extremities: No Edema, No Clubbing, Cyanosis Skin: - - abrasions on b/l knees, sutured lac on forehead Neurological: Alert and Oriented x 3, - - Motor appers to be at 5/5, positive Babinski b/l and positive Hall's sign Result Diagrams: 01/02/18 05:00 01/02/18 05:00 Additional Lab and Data: Assess/Plan/Problems-Billing Assessment: 62 year old with history of HTN, heavy EtOH abuse, last drink December 25, status post fall with neck and facial injury. Noted to have generalized weakness and c spine injury (no vertebral fractures). Intubated 12/29/17 for inability to protect his airway due to ETOH withdrawal and c. spine injury, extubated after approx a week. Transferred back to [facility] floor on 01/02/18 - Patient Problems (1) Alcohol withdrawal Comment: resolved (2) Facial fracture Comment: Nondisplaced fracture of the nasal bridge and nondisplaced fracture of the posterior lateral wall of the left maxilary sinus Follow up with ENT outpatient (3) HTN (hypertension) Comment: SBP 150's, will increase lopressor from 50 to 75 mg BID (4) Cervical spinal cord compression Comment: After a fall when intoxicated, no verterbal injury noted. Dr. Nolasco d /c'd pt's c spine collar today cont PT/OT, PMRU consult will d/c Coughlin and check post void residuals (5) Diarrhea Comment: on Lactulose daily, will d/c and see if output is lower in order to d/ c rectal tube. Pt is not encephalopathic now, will repeat ammonia level in AM. (6) DVT prophylaxis Comment: HSQ Status and Disposition: Inpatient.
[2018-01-03] MEDS: fentaNYL* 50 MCG/ML 2 ML VIAL (100 MCG VIAL) IV SLOW PU PRN (14:52)
[2018-01-03] MEDS: Nicotine Patch Removal NOTE FOLLOW UP SCH (21:00)
[2018-01-04 05:09] LABS: Hematocrit 40 % (42-52); Hemoglobin 13.8 g/dl (14.0-18.0); Mean Corpuscular HGB Conc 35 g/dl (31-36); Mean Corpuscular Hemoglobin 34 pg (27-31); Mean Corpuscular Volume 98 fL (80-94); Mean Platelet Volume 7 um3 (7.4-10.4); Platelet Count 514 10^3/ul (150-450); Red Blood Count 4.06 10^6/ul (4.0-5.4); Red Cell Distribution Width 13 % (10.5-15); White Blood Count 12.1 10^3/ul (3.5-10.8)
[2018-01-04 05:26] LABS: EGFR Non-African American 147.4 (>60)
[2018-01-04] MEDS: Omeprazole CAP* 20 MG PO SCH (05:59)
[2018-01-04] MEDS: Heparin VIAL(*) 5000 UNITS/ML VIAL (FIVE THOUSAND) SUBCUT SCH ×3 (06:00→21:47)
[2018-01-04] MEDS: Nicotine PATCH 21 MG/24 HR* PATCH TRANSDERM SCH (06:01)
[2018-01-04] MEDS: Thiamine TAB* 100 MG TAB PO SCH ×3 (09:35→21:55)
[2018-01-04] MEDS: Folic Acid TAB* 1 MG PO SCH (09:35)
[2018-01-04] MEDS: Metoprolol Tartrate TAB* 50 mg PO SCH ×2 (09:36→21:45)
--- NOTE | 2018-01-04 10:42 | PN ---
Subjective Date of Service: 01/04/18 Interval History: Pt feels well. Attempted to get OOB in the middle of night to go to bathroom and was lowered to the ground by the staff. Stitches removed from forehead laceration today-healed well. Family History: Unchanged from Admission Social History: Unchanged from Admission Past Medical History: Unchanged from Admission Objective Active Medications: Acetaminophen (Tylenol Tab*) 650 mg PO Q6H PRN PRN Reason: FEVER/PAIN Last Admin: 01/03/18 10:32 Dose: 650 mg Device (Nicotine Mouth Piece*) 1 each INH .USE WITH NICOTROL PRN PRN Reason: CRAVING Fentanyl Citrate (Fentanyl*) 25 mcg IV SLOW PU Q4H PRN PRN Reason: PAIN - MODERATE Last Admin: 01/03/18 14:52 Dose: 25 mcg Folic Acid (Folvite Tab*) 1 mg PO DAILY [facility] Last Admin: 01/04/18 09:35 Dose: 1 mg Heparin Sodium (Porcine) (Heparin Vial(*)) 5,000 units SUBCUT Q8HR [facility] Last Admin: 01/04/18 06:00 Dose: 5,000 units Lorazepam (Ativan Inj*) 0.5 mg IV PUSH Q4H PRN PRN Reason: ANXIETY Last Admin: 01/02/18 21:51 Dose: 0.5 mg Metoprolol Tartrate (Lopressor Tab*) 75 mg PO BID [facility] Last Admin: 01/04/18 09:36 Dose: 75 mg Nicotine (Nicotine Inhaler*) 10 mg INH Q2H PRN PRN Reason: CRAVING Nicotine (Nicotine Patch 21 Mg/24 Hr*) 1 patch TRANSDERM DAILY@0800 [facility] Last Admin: 01/04/18 06:01 Dose: 1 patch Omeprazole (Prilosec Cap*) 20 mg PO DAILY@0600 [facility] Last Admin: 01/04/18 05:59 Dose: 20 mg Ondansetron HCl (Zofran Inj*) 4 mg IV Q4H PRN PRN Reason: NAUSEA/VOMITING Pharmacy Profile Note (Nicotine Patch Removal Note*) 1 note FOLLOW UP 2100 [facility] Last Admin: 01/03/18 21:00 Dose: 1 note Thiamine HCl (Vitamin B-1 Tab*) 100 mg PO TID [facility] Last Admin: 01/04/18 09:35 Dose: 100 mg Vital Signs - 8 hr 01/04/18 01/04/18 03:46 07:13 Temperature 98.8 F Pulse Rate 73 83 Respiratory 16 18 Rate Blood Pressure 144/73 144/70 (mmHg) O2 Sat by Pulse 97 98 Oximetry Oxygen Devices in Use Now: None Appearance: 62 yo M in nAD, AAOx3, Eyes: No Scleral Icterus, PERRLA Ears/Nose/Mouth/Throat: NL Teeth, Lips, Gums, Mucous Membranes Moist Neck: NL Appearance and Movements; NL JVP, Trachea Midline Respiratory: Symmetrical Chest Expansion and Respiratory Effort, Clear to Auscultation Cardiovascular: NL Sounds; No Murmurs; No JVD, RRR Abdominal: NL Sounds; No Tenderness; No Distention Lymphatic: No Cervical Adenopathy Extremities: No Edema, No Clubbing, Cyanosis Skin: No Rash or Ulcers, No Nodules or Sclerosis Neurological: Alert and Oriented x 3, - - b/l hand weakness-resolving, still problems with fine motor skills, Babinski equivocal b/l Result Diagrams: 01/04/18 04:59 01/04/18 04:59 Additional Lab and Data: Assess/Plan/Problems-Billing Assessment: 62 year old with history of HTN, heavy EtOH abuse, last drink December 25, status post fall with neck and facial injury. Noted to have generalized weakness and c spine injury (no vertebral fractures). Intubated 12/29/17 for inability to protect his airway due to ETOH withdrawal and c. spine injury, extubated after approx a week. Transferred back to [facility] floor on 01/02/18 - Patient Problems (1) Alcohol withdrawal Comment: resolved (2) Facial fracture Comment: Nondisplaced fracture of the nasal bridge and nondisplaced fracture of the posterior lateral wall of the left maxilary sinus Follow up with ENT outpatient (3) HTN (hypertension) Comment: SBP 140's, lopressor increased from 50 to 75 mg BID on 01/03/18 (4) Cervical spinal cord compression Comment: After a fall when intoxicated, no verterbal injury noted. Dr. Nolasco d /c'd pt's c spine collar onn 01/03/18 cont PT/OT, PMRU consult Coughlin d/c'd on 01/03/18 -urinating well (5) Diarrhea Comment: Lactulose discontinued due to profuse diarrhea. Rectal tube removed on 3/17/18 Pt is not encephalopathic (6) DVT prophylaxis Comment: HSQ Status and Disposition: Inpatient.
[2018-01-04] MEDS: Magnesium Oxide TAB* 400 MG PO SCH (13:22)
[2018-01-04] MEDS: Nicotine Patch Removal NOTE FOLLOW UP SCH (21:47)
[2018-01-04] MEDS: LORazepam INJ* 2 MG/ML 1 ML VIAL IV PUSH PRN (21:48)
[2018-01-05] MEDS: Heparin VIAL(*) 5000 UNITS/ML VIAL (FIVE THOUSAND) SUBCUT SCH ×3 (05:29→21:45)
[2018-01-05] MEDS: Omeprazole CAP* 20 MG PO SCH (05:29)
[2018-01-05] MEDS: Thiamine TAB* 100 MG TAB PO SCH ×3 (08:23→20:23)
[2018-01-05] MEDS: Magnesium Oxide TAB* 400 MG PO SCH (08:24)
[2018-01-05] MEDS: Folic Acid TAB* 1 MG PO SCH (08:24)
[2018-01-05] MEDS: Metoprolol Tartrate TAB* 50 mg PO SCH ×2 (08:25→20:23)
--- NOTE | 2018-01-05 10:10 | PN ---
Subjective Date of Service: 01/05/18 Interval History: Patient seen and examined at bedside. Denies any acute complaints and is hopeful to go home. Patient is agreeable to rehab if needed but appears to have poor insight into his progress. Reports that he would be okay with going home and plans to move into a friend's property after he helps her sell her other property but has no plan in the interim. Family History: Unchanged from Admission Social History: Unchanged from Admission Past Medical History: Unchanged from Admission Objective Active Medications: Acetaminophen (Tylenol Tab*) 650 mg PO Q6H PRN PRN Reason: FEVER/PAIN Last Admin: 01/03/18 10:32 Dose: 650 mg Device (Nicotine Mouth Piece*) 1 each INH .USE WITH NICOTROL PRN PRN Reason: CRAVING Fentanyl Citrate (Fentanyl*) 25 mcg IV SLOW PU Q4H PRN PRN Reason: PAIN - MODERATE Last Admin: 01/03/18 14:52 Dose: 25 mcg Folic Acid (Folvite Tab*) 1 mg PO DAILY [facility] Last Admin: 01/05/18 08:24 Dose: 1 mg Heparin Sodium (Porcine) (Heparin Vial(*)) 5,000 units SUBCUT Q8HR [facility] Last Admin: 01/05/18 05:29 Dose: 5,000 units Lorazepam (Ativan Inj*) 0.5 mg IV PUSH Q4H PRN PRN Reason: ANXIETY Last Admin: 01/04/18 21:48 Dose: 0.5 mg Magnesium Oxide (Magox 400 Tab*) 800 mg PO DAILY [facility] Last Admin: 01/05/18 08:24 Dose: 800 mg Metoprolol Tartrate (Lopressor Tab*) 75 mg PO BID [facility] Last Admin: 01/05/18 08:25 Dose: 75 mg Nicotine (Nicotine Inhaler*) 10 mg INH Q2H PRN PRN Reason: CRAVING Nicotine (Nicotine Patch 21 Mg/24 Hr*) 1 patch TRANSDERM DAILY@0800 [facility] Last Admin: 01/04/18 06:01 Dose: 1 patch Omeprazole (Prilosec Cap*) 20 mg PO DAILY@0600 [facility] Last Admin: 01/05/18 05:29 Dose: 20 mg Ondansetron HCl (Zofran Inj*) 4 mg IV Q4H PRN PRN Reason: NAUSEA/VOMITING Pharmacy Profile Note (Nicotine Patch Removal Note*) 1 note FOLLOW UP 2100 [facility] Last Admin: 01/04/18 21:47 Dose: 1 note Thiamine HCl (Vitamin B-1 Tab*) 100 mg PO TID [facility] Last Admin: 01/05/18 08:23 Dose: 100 mg Vital Signs - 8 hr 01/05/18 01/05/18 03:17 07:09 Temperature 99.0 F Pulse Rate 85 73 Respiratory 16 18 Rate Blood Pressure 138/78 126/68 (mmHg) O2 Sat by Pulse 98 97 Oximetry Oxygen Devices in Use Now: None Appearance: Older male, OOB to chair, pleasant, NAD Eyes: No Scleral Icterus, PERRLA Ears/Nose/Mouth/Throat: Clear Oropharnyx, Mucous Membranes Moist Neck: NL Appearance and Movements; NL JVP Respiratory: Symmetrical Chest Expansion and Respiratory Effort, Clear to Auscultation Cardiovascular: NL Sounds; No Murmurs; No JVD, RRR, No Edema Abdominal: NL Sounds; No Tenderness; No Distention Extremities: No Clubbing, Cyanosis Skin: No Rash or Ulcers, - - healing wound to forehead Neurological: Alert and Oriented x 3, - - b/l hand weakness Lines/Tubes/Other Access: Clean, Dry and Intact Peripheral IV Nutrition: Taking PO's Result Diagrams: 01/04/18 04:59 01/05/18 05:48 Additional Lab and Data: Assess/Plan/Problems-Billing Assessment: 62 year old with history of HTN, heavy EtOH abuse, last drink December 25, status post fall with neck and facial injury. Noted to have generalized weakness and c spine injury (no vertebral fractures). Intubated 12/29/17 for inability to protect his airway due to ETOH withdrawal and c. spine injury, extubated after approx a week. Transferred back to [facility] floor on 01/02/18 - Patient Problems (1) Alcohol withdrawal Code(s): F10.239 - ALCOHOL DEPENDENCE WITH WITHDRAWAL, UNSPECIFIED Comment: Resolved (2) Facial fracture Code(s): S02.92XA - UNSP FRACTURE OF FACIAL BONES, INIT FOR CLOS FX Comment: Nondisplaced fracture of the nasal bridge and nondisplaced fracture of the posterior lateral wall of the left maxilary sinus. Follow up with ENT outpatient (3) HTN (hypertension) Code(s): I10 - ESSENTIAL (PRIMARY) HYPERTENSION Comment: SBP 140's, lopressor increased from 50 to 75 mg BID on 01/03/18 (4) Cervical spinal cord compression Code(s): G95.20 - UNSPECIFIED CORD COMPRESSION Comment: After a fall when intoxicated, no verterbal injury noted. Dr. Nolasco d/c'd pt's c spine collar on 01/03/18 Cont PT/OT, PMRU consult Coughlin d/c'd on 01/03/18 - urinating well (5) Diarrhea Code(s): R19.7 - DIARRHEA, UNSPECIFIED Comment: Lactulose discontinued due to profuse diarrhea. Rectal tube removed on 01/03/18 Pt is not encephalopathic (6) DVT prophylaxis Comment: HSQ Status and Disposition: Inpatient.
[2018-01-05] MEDS: Nicotine PATCH 21 MG/24 HR* PATCH TRANSDERM SCH (13:06)
[2018-01-05] MEDS: Nicotine Patch Removal NOTE FOLLOW UP SCH (20:26)
[2018-01-06] MEDS: Omeprazole CAP* 20 MG PO SCH (05:22)
[2018-01-06] MEDS: Heparin VIAL(*) 5000 UNITS/ML VIAL (FIVE THOUSAND) SUBCUT SCH ×2 (05:22→13:35)
[2018-01-06 05:51] LABS: ABS Basophils 0.1 10^3/ul (0-0.2); ABS Eosinophils 0.1 10^3/ul (0-0.6); ABS Lymphocytes 1.9 10^3/ul (1.0-4.8); ABS Monocytes 0.9 10^3/ul (0-0.8); ABS Neutrophils 9.5 10^3/ul (1.5-7.7); ABS Nucleated RBC 0 10^3/ul; Eosinophil % 1.1 % (0-6); Hematocrit 37 % (42-52); Lymphocyte % 14.9 % (25-47); Mean Corpuscular HGB Conc 35 g/dl (31-36); Mean Corpuscular Hemoglobin 34 pg (27-31); Mean Corpuscular Volume 98 fL (80-94); Mean Platelet Volume 7 um3 (7.4-10.4); Nucleated Red Blood Cells % 0; Platelet Count 574 10^3/ul (150-450); Red Blood Count 3.81 10^6/ul (4.0-5.4); Red Cell Distribution Width 13 % (10.5-15); White Blood Count 12.6 10^3/ul (3.5-10.8)
[2018-01-06] MEDS: Folic Acid TAB* 1 MG PO SCH (09:05)
[2018-01-06] MEDS: Thiamine TAB* 100 MG TAB PO SCH ×2 (09:05→13:35)
[2018-01-06] MEDS: Magnesium Oxide TAB* 400 MG PO SCH (09:05)
[2018-01-06] MEDS: Metoprolol Tartrate TAB* 50 mg PO SCH (09:06)
[2018-01-06] MEDS: Nicotine PATCH 21 MG/24 HR* PATCH TRANSDERM SCH (09:07)
[2018-01-06 09:20] VITALS: BP 125/67
--- NOTE | 2018-01-06 10:47 | PN ---
Subjective Date of Service: 01/06/18 Family History: Unchanged from Admission Social History: Unchanged from Admission Past Medical History: Unchanged from Admission Objective Active Medications: Acetaminophen (Tylenol Tab*) 650 mg PO Q6H PRN PRN Reason: FEVER/PAIN Last Admin: 01/03/18 10:32 Dose: 650 mg Device (Nicotine Mouth Piece*) 1 each INH .USE WITH NICOTROL PRN PRN Reason: CRAVING Fentanyl Citrate (Fentanyl*) 25 mcg IV SLOW PU Q4H PRN PRN Reason: PAIN - MODERATE Last Admin: 01/03/18 14:52 Dose: 25 mcg Folic Acid (Folvite Tab*) 1 mg PO DAILY [facility] Last Admin: 01/06/18 09:05 Dose: 1 mg Heparin Sodium (Porcine) (Heparin Vial(*)) 5,000 units SUBCUT Q8HR [facility] Last Admin: 01/06/18 05:22 Dose: 5,000 units Lorazepam (Ativan Inj*) 0.5 mg IV PUSH Q4H PRN PRN Reason: ANXIETY Last Admin: 01/04/18 21:48 Dose: 0.5 mg Magnesium Oxide (Magox 400 Tab*) 800 mg PO DAILY [facility] Last Admin: 01/06/18 09:05 Dose: 800 mg Metoprolol Tartrate (Lopressor Tab*) 75 mg PO BID [facility] Last Admin: 01/06/18 09:06 Dose: 75 mg Nicotine (Nicotine Inhaler*) 10 mg INH Q2H PRN PRN Reason: CRAVING Nicotine (Nicotine Patch 21 Mg/24 Hr*) 1 patch TRANSDERM DAILY@0800 [facility] Last Admin: 01/06/18 09:07 Dose: 1 patch Omeprazole (Prilosec Cap*) 20 mg PO DAILY@0600 [facility] Last Admin: 01/06/18 05:22 Dose: 20 mg Ondansetron HCl (Zofran Inj*) 4 mg IV Q4H PRN PRN Reason: NAUSEA/VOMITING Pharmacy Profile Note (Nicotine Patch Removal Note*) 1 note FOLLOW UP 2100 [facility] Last Admin: 01/05/18 20:26 Dose: 1 note Thiamine HCl (Vitamin B-1 Tab*) 100 mg PO TID [facility] Last Admin: 01/06/18 09:05 Dose: 100 mg Throat Lozenges (Chloraseptic Raymundo*) 1 raymundo PO Q4H PRN PRN Reason: SORE THROAT Vital Signs - 8 hr 03/20/18 03/20/18 03/20/18 02:58 07:39 08:00 Temperature 98.5 F 98.2 F Pulse Rate 75 80 Respiratory 20 18 18 Rate Blood Pressure 144/69 125/67 (mmHg) O2 Sat by Pulse 100 100 100 Oximetry Oxygen Devices in Use Now: None Result Diagrams: 01/06/18 05:15 01/05/18 05:48 Additional Lab and Data: Assess/Plan/Problems-Billing Assessment: 62 year old with history of HTN, heavy EtOH abuse, last drink December 25, status post fall with neck and facial injury. Noted to have generalized weakness and c spine injury (no vertebral fractures). Intubated 12/29/17 for inability to protect his airway due to ETOH withdrawal and c. spine injury, extubated after approx a week. Transferred back to [facility] floor on 01/02/18 - Patient Problems (1) Alcohol withdrawal Code(s): F10.239 - ALCOHOL DEPENDENCE WITH WITHDRAWAL, UNSPECIFIED Comment: Resolved (2) Facial fracture Code(s): S02.92XA - UNSP FRACTURE OF FACIAL BONES, INIT FOR CLOS FX Comment: Nondisplaced fracture of the nasal bridge and nondisplaced fracture of the posterior lateral wall of the left maxilary sinus. Follow up with ENT outpatient (3) HTN (hypertension) Code(s): I10 - ESSENTIAL (PRIMARY) HYPERTENSION Comment: SBP 140's, lopressor increased from 50 to 75 mg BID on 01/03/18 (4) Cervical spinal cord compression Code(s): G95.20 - UNSPECIFIED CORD COMPRESSION Comment: After a fall when intoxicated, no verterbal injury noted. Dr. Nolasco d/c'd pt's c spine collar on 01/03/18 Cont PT/OT, PMRU consult Madyson d/c'd on 01/03/18 - urinating well (5) Diarrhea Code(s): R19.7 - DIARRHEA, UNSPECIFIED Comment: Lactulose discontinued due to profuse diarrhea. Rectal tube removed on 01/03/18 Pt is not encephalopathic (6) DVT prophylaxis Comment: HSQ Status and Disposition: Inpatient.
[2018-01-06] MEDS: Benzocaine/Menthol LOZ* 1 LOZENGE PO PRN ×2 (12:28→13:36)
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
== END 2018-01-06 17:10 | DRG 912 ==
LOC: ED 23:59 → MEDTELE 12-25 08:10 → ICU 12-29 14:41 → MED 01-02 14:35
PROVIDERS: ADMIT Internal Medicine; ATTEND Hospitalist
PROC: 0CQ1XZZ Repair Lower Lip, External Approach (ICD-10-PCS; 2017-12-25)
PROC: 0WQ2XZZ Repair Face, External Approach (ICD-10-PCS; 2017-12-25)
PROC: 4A00X4Z Measurement of Central Nervous Electrical Activity, External Approach (ICD-10-PCS; principal; 2017-12-30)
PROC: 0T9B70Z Drainage of Bladder with Drainage Device, Via Natural or Artificial Opening (ICD-10-PCS; 2017-12-30)
PROC: 5A1945Z Respiratory Ventilation, 24-96 Consecutive Hours (ICD-10-PCS; 2017-12-30)
PROC: 0BH17EZ Insertion of Endotracheal Airway into Trachea, Via Natural or Artificial Opening (ICD-10-PCS; 2017-12-30)
DX: S14.103A Unspecified injury at C3 level of cervical spinal cord, initial encounter (principal); I63.9 Cerebral infarction, unspecified; S06.5X9A Traumatic subdural hemorrhage with loss of consciousness of unspecified duration, initial encounter; J96.01 Acute respiratory failure with hypoxia; N17.9 Acute kidney failure, unspecified; I95.9 Hypotension, unspecified; K72.90 Hepatic failure, unspecified without coma; S01.511A Laceration without foreign body of lip, initial encounter; D72.829 Elevated white blood cell count, unspecified; F10.239 Alcohol dependence with withdrawal, unspecified; E51.2 Wernicke's encephalopathy; S02.40DA Maxillary fracture, left side, initial encounter for closed fracture; S02.80XA Fracture of other specified skull and facial bones, unspecified side, initial encounter for closed fracture; M48.02 Spinal stenosis, cervical region; S13.4XXA Sprain of ligaments of cervical spine, initial encounter; S01.81XA Laceration without foreign body of other part of head, initial encounter; W10.8XXA Fall (on) (from) other stairs and steps, initial encounter; I10 Essential (primary) hypertension; K21.9 Gastro-esophageal reflux disease without esophagitis; F41.9 Anxiety disorder, unspecified; S02.2XXA Fracture of nasal bones, initial encounter for closed fracture; M50.31 Other cervical disc degeneration, high cervical region; R91.8 Other nonspecific abnormal finding of lung field; R19.7 Diarrhea, unspecified; Y93.89 Activity, other specified; Y92.091 Bathroom in other non-institutional residence as the place of occurrence of the external cause; Z88.8 Allergy status to other drugs, medicaments and biological substances; Z87.891 Personal history of nicotine dependence; Z79.82 Long term (current) use of aspirin; Z78.9 Other specified health status; S80.212A Abrasion, left knee, initial encounter; S80.211A Abrasion, right knee, initial encounter; E78.00 Pure hypercholesterolemia, unspecified; Z96.1 Presence of intraocular lens; Z98.41 Cataract extraction status, right eye; R27.0 Ataxia, unspecified; Y90.9 Presence of alcohol in blood, level not specified; R53.1 Weakness; M21.332 Wrist drop, left wrist; M21.331 Wrist drop, right wrist; Z98.42 Cataract extraction status, left eye
CPT/HCPCS: 36415; 36600; 70030; 70450; 70486; 70496; 70498; 70551; 71045; 72125; 72141; 72170; 74018; 80048; 80053; 80061; 80076; 80307; 80320; 81003; 81015; 82140; 82150; 82542; 82550; 82607; 82803; 83605; 83735; 84100; 84207; 84443; 84484; 85025; 85027; 85610; 85652; 87086; 90715; 93005; 93306; 94002; 94003; 94760; 94762; 95819; 99285; A9270-GY; G0480; G8978-GP-CM; G8979-GP-CI; J0330; J1100; J1170; J1644; J1650; J2060; J2250; J2270; J2405; J2704; J3010; J3411; J3475; J3486; J3490; Q9967

== ENCOUNTER 2020-01-01 12:30 | Inpatient (IN) | payer BC ==
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
[2020-01-01] MEDS ORDERED: LORazepam INJ* 2 MG/ML 1 ML VIAL IV PUSH ONE (12:56)
[2020-01-01] MEDS ORDERED: NS 0.9% 1000 ML** 1,000 ML IV ONE ×2 (12:56→15:06)
[2020-01-01] MEDS ORDERED: Lorazepam PYXIS KEY PRN (12:56)
[2020-01-01] MEDS ORDERED: Lorazepam PYXIS KEY ONE (13:02)
[2020-01-01 13:22] LABS: ABS Lymphocytes 0.5 10^3/ul (1.0-4.8); ABS Monocytes 0.5 10^3/ul (0-0.8); ABS Neutrophils 10.4 10^3/ul (1.5-7.7); Hematocrit 40 % (42-52); Hemoglobin 13.5 g/dL (14.0-18.0); Lymphocyte % 4.4 %; Mean Corpuscular HGB Conc 34 g/dL (31-36); Mean Corpuscular Hemoglobin 35 pg (27-31); Mean Corpuscular Volume 102 fL (80-94); Mean Platelet Volume 6.7 fL (7.4-10.4); Platelet Count 257 10^3/uL (150-450); Red Blood Count 3.89 10^6 /uL (4.18-5.48); Red Cell Distribution Width 14 % (10-15); White Blood Count 11.4 10^3/uL (3.5-10.8)
[2020-01-01 13:42] LABS: ALT 35 U/L (7-52); AST 59 U/L (13-39); Albumin 3.7 g/dL (3.2-5.2); Albumin/Globulin Ratio 1.2 (1-3); Alkaline Phosphatase 105 U/L (34-104); Anion Gap 19 mmol/L (2-11); BUN/Creatinine Ratio 15.8 (8-20); Blood Urea Nitrogen 12 mg/dL (6-24); CO2 Carbon Dioxide 20 mmol/L (22-32); Calcium 8.7 mg/dL (8.6-10.3); Chloride 99 mmol/L (101-111); EGFR African American 124.6 (>60); EGFR Non-African American 102.9 (>60); Globulin 3.1 g/dL (2-4); Glucose 127 mg/dL (70-100); Potassium 3.9 mmol/L (3.5-5.0); Sodium 138 mmol/L (135-145); Total Protein 6.8 g/dL (6.4-8.9)
[2020-01-01 13:55] LABS: Alcohol < 10 mg/dL (<10)
[2020-01-01 14:10] LABS: TSH (Thyroid Stimulating Horm) 0.54 mcIU/mL (0.34-5.60)
[2020-01-01 14:28] LABS: Acetaminophen < 15 mcg/mL; Salicylate < 2.50 mg/dL (<30)
[2020-01-01 16:34] LABS: BUN/Creatinine Ratio 17.6 (8-20); Calcium 7.9 mg/dL (8.6-10.3); EGFR African American 141.6 (>60); Potassium 4.1 mmol/L (3.5-5.0)
[2020-01-01] MEDS ORDERED: Acetaminophen TAB* 325 MG PO PRN (19:28)
[2020-01-01] MEDS ORDERED: Ondansetron INJ* 2 MG/ML VIAL IV PRN (19:41)
[2020-01-01] MEDS ORDERED: LORazepam TAB(*) 1 MG PO SCH (20:00)
--- NOTE | 2020-01-01 20:57 | HP ---
CC: Dr. Weston * [facility] MEDICINE HISTORY AND PHYSICAL: DATE OF ADMISSION: 01/01/20 PRIMARY CARE PHYSICIAN: Dr. Weston. ATTENDING PHYSICIAN: Dr. Caleb Alves * (dictation provided by Susan Vaughan NP). CHIEF COMPLAINT: Gait instability and falls. HISTORY OF PRESENT ILLNESS: Mr. Kelly is a 64-year-old male with a past medical history of Wernicke's encephalopathy, alcoholism, cervical spine compression, hypertension, and hyperlipidemia, who presents to the hospital today with concern for multiple falls. Mr. Kelly was last admitted to our hospital in December of 2017, at which time he was having symptoms of Wernicke's encephalopathy that ultimately improved by the time of discharge. He states that he avoided alcohol for about a year and a half, but about 6 months ago started drinking again. He states he has only been drinking lightly about 2 beers per day. He states he did not drink today. He states that over the past few days he has been noticing that he is much weaker and has been holding onto the hankins in his home to stand up. Today, he fell down 3 times and ultimately decided to come to the emergency room. He states that other than this the only change has been that he has lost his appetite over the past week and therefore has not been taking any of his home medications. He states he has also felt constipated, although he did have a bowel movement today. He denies any fevers , chills, cough, chest pain, shortness of breath, nausea, vomiting, diarrhea, or abdominal pain. In the emergency room, Mr. Kelly was unable to ambulate due to weakness and gait instability. He had labs, which showed normal creatinine, normal electrolytes, no significant leukocytosis. He had a CT brain, that was normal. PAST MEDICAL HISTORY: 1. Wernicke's encephalopathy. 2. History of cervical spine compression not requiring surgical intervention. 3. Alcohol abuse. 4. Hypertension. 5. Hyperlipidemia. MEDICATIONS: 1. Ascorbic acid 500 mg p.o. q.a.m. 2. Tylenol 650 mg p.o. q.6 hours p.r.n. 3. Multivitamin with minerals 1 tab p.o. daily. 4. Metoprolol succinate 50 mg p.o. at bedtime. 5. Magnesium oxide 800 mg p.o. daily. 6. Saw palmetto 450 mg p.o. daily. 7. Omeprazole 20 mg p.o. daily. 8. [place]-3 fatty acids 1000 mg p.o. daily. 9. Simvastatin 20 mg p.o. at bedtime. 10. Bupropion SR 100 mg p.o. q.a.m. 11. Valsartan 160 mg p.o. q.a.m. ALLERGIES: To HYDROCHLOROTHIAZIDE, LISINOPRIL, and CITALOPRAM. SOCIAL HISTORY: The patient states that he has returned to drinking minimally. He has been a former smoker for quite some time. He states that he lives alone. REVIEW OF SYSTEMS: A 14-point review of systems was completed with Mr. Kelly , and all those not mentioned above were negative. PHYSICAL EXAMINATION GENERAL: Mr. Kelly is lying in the bed. He is in no acute distress. VITAL SIGNS: Temperature 98.8, pulse rate 87, respiratory rate 18, O2 saturation 97% on room air, and blood pressure 142/81. LUNGS: Clear to auscultation bilaterally with no accessory muscle use and good aeration. HEART: S1, S2. No murmur, rub, or gallop and regular. ABDOMEN: Soft and nontender with bowel sounds positive x4. EXTREMITIES: No cyanosis or edema. NEURO: He is alert. He is oriented x3. He has a tremor, but he has +4 strength in all extremities. There is no facial asymmetry or weakness. SKIN: Intact. DIAGNOSTIC STUDIES/LAB DATA: WBC 11.4, hemoglobin 13.5, hematocrit 40, platelet count 257. Sodium 137, potassium 4.1, chloride 104, serum bicarbonate 20, BUN 12, creatinine 0.68, glucose 83. Serum osmolality is 294. On arrival, his anion gap was 19, but on repeat within 2 hours it was 13. TSH 0.54. Alcohol level less than 10, acetaminophen less than 15, salicylates less than 2.5. CT brain is as read per above. ASSESSMENT AND PLAN: Mr. Kelly is a 64-year-old male with past medical history of Wernicke's encephalopathy, alcoholism, hypertension, hyperlipidemia, who presents today to the hospital with concern for falls and difficulty ambulating with gait ataxia. Our plans are for inpatient admission as I expect his length of stay to be greater than 2 days for the followin. Gait ataxia and falling. I suspect this is related to his history of chronic alcoholism, Wernicke's encephalopathy, and return to drinking. Plan to monitor with [facility] protocol. He will have Ativan available p.r.n. We are also going to start thiamine 500 mg IV q.8 hours for 2 days. B1 level is pending. I also have ammonia level pending. The patient will have physical and occupational therapy ordered as well. He does have a history of cervical cord compression that has been evaluated and was not deemed to require surgical intervention. Further evaluation will be undertaken based on clinical course. 2. Depression. Continue bupropion. 3. Hypertension. Continue metoprolol and valsartan. 4. Hyperlipidemia. Continue simvastatin. 5. Gastroesophageal reflux disease. Continue omeprazole. 6. DVT prophylaxis with SCDs. 7. Disposition: To medical floor. TIME SPENT: Approximately 60 minutes was spent on the admission of this patient , more than half the time was spent with the patient at the bedside reviewing the events leading up to this hospitalization, performing the physical examination, and reviewing my plan of care. SUSAN VAUGHAN NP [id number]/[facility] #: [id number] AGUSTO
[2020-01-01] MEDS: Thiamine INJ* 500 MG in NS 0.9% 250 ML* 250 ML IV SCH (22:02)
[2020-01-01] MEDS: Metoprolol Succinate XL TAB* 50 MG PO SCH (22:02)
[2020-01-01] MEDS: Atorvastatin* 10 MG TAB PO SCH (22:02)
[2020-01-02] MEDS: Thiamine INJ* 500 MG in NS 0.9% 250 ML* 250 ML IV SCH ×3 (04:58→21:25)
[2020-01-02 06:21] LABS: BUN/Creatinine Ratio 16.7 (8-20); Calcium 7.6 mg/dL (8.6-10.3); EGFR African American 146.6 (>60); EGFR Non-African American 121.1 (>60); Potassium 3.6 mmol/L (3.5-5.0)
[2020-01-02] MEDS: Multivitamins/Minerals TAB PO SCH (08:54)
[2020-01-02] MEDS: Pantoprazole TAB * 40 MG TAB PO SCH (08:54)
[2020-01-02] MEDS: Folic Acid TAB* 1 MG PO SCH (08:54)
[2020-01-02] MEDS: Valsartan TAB* 160 MG PO SCH (08:54)
[2020-01-02] MEDS: Ascorbic Acid TAB* 500 MG PO SCH (08:55)
[2020-01-02] MEDS: buPROPion SR TAB.SR* 100 MG PO SCH (08:55)
[2020-01-02 08:58] LABS: Magnesium 1.5 mg/dL (1.9-2.7)
[2020-01-02] MEDS ORDERED: Multivitamins/Minerals TAB PO SCH (09:00)
[2020-01-02] MEDS ORDERED: Potassium Chlor TAB* 20 MEQ TAB.ER PO SCH (09:00)
[2020-01-02] MEDS ORDERED: Magnesium Oxide TAB* 400 MG PO SCH (09:00)
--- NOTE | 2020-01-02 13:30 | PN ---
Subjective Date of Service: 01/02/20 Interval History: Patient seen today on the floor. Admitted yesterday for recurrent fall at home , fell 3 times yesterday. He has known history of alcohol abuse and dependency as well as known history of cervical cord compression diagnosed 2017 and he was seen by neurosurgery at that time and he was deemed to be non surgical candidate. He was admitted and placed on [facility] protocol PT/OT ordered. Patient is quite emotional today complaining of increase weakness. no fever, or chills. Increase tremors and difficulty with gait Past Medical History: Unchanged from Admission Objective Active Medications: Acetaminophen (Tylenol Tab*) 650 mg PO Q6H PRN PRN Reason: FEVER/PAIN Ascorbic Acid (Vitamin C Tab*) 500 mg PO QAM [facility] Last Admin: 01/02/20 08:55 Dose: 500 mg Atorvastatin Calcium (Lipitor*) 10 mg PO BEDTIME [facility] Last Admin: 01/01/20 22:02 Dose: 10 mg Bupropion HCl (Wellbutrin Sr Tab*) [facility] Last Admin: 01/02/20 08:55 Dose: 100 mg Folic Acid (Folvite Tab*) 1 mg PO DAILY [facility] Last Admin: 01/02/20 08:54 Dose: 1 mg Thiamine HCl 500 mg/ Sodium (Chloride) 255 mls @ 255 mls/hr IV Q8H [facility] Stop: 01/03/20 20:59 Last Admin: 01/02/20 13:26 Dose: 255 mls/hr Lorazepam (Ativan Tab(*)) 0 - 6 mg PO .PER [facility] PROTOCOL [facility]; Protocol Magnesium Oxide (Magox 400 Tab*) 800 mg PO BID [facility] Metoprolol Succinate (Toprol Xl Tab*) 50 mg PO BEDTIME [facility] Last Admin: 01/01/20 22:02 Dose: 50 mg Miscellaneous (Ativan Pyxis Chi) 1 ea N/A .ATIVAN IV CHI PRN PRN Reason: PYXIS CHI Multivitamins/Minerals (Theragran/Minerals Tab*) 1 tab PO DAILY [facility] Last Admin: 01/02/20 08:54 Dose: 1 tab Ondansetron HCl (Zofran Inj*) 4 mg IV Q6H PRN PRN Reason: NAUSEA Pantoprazole Sodium (Protonix Tab*) 40 mg PO DAILY [facility] Last Admin: 03/15/20 08:54 Dose: 40 mg Potassium Chloride (Klor Con Er Tab*) 20 meq PO DAILY [facility] Last Admin: 01/02/20 09:43 Dose: 20 meq Valsartan (Diovan Tab*) 160 mg PO QAM [facility] Last Admin: 01/02/20 08:54 Dose: 160 mg Vital Signs - 8 hr 01/02/20 01/02/20 01/02/20 07:21 09:05 11:00 Temperature 98.1 F 97.4 F Pulse Rate 85 85 Respiratory 18 18 16 Rate Blood Pressure 128/69 124/59 (mmHg) O2 Sat by Pulse 99 99 Oximetry 01/02/20 01/02/20 11:04 13:17 Temperature 97.6 F 97.6 F Pulse Rate 77 86 Respiratory 16 18 Rate Blood Pressure 126/72 129/69 (mmHg) O2 Sat by Pulse 97 99 Oximetry Oxygen Devices in Use Now: None Appearance: awake, alert no fever or chills Eyes: No Scleral Icterus, - - EOMI Ears/Nose/Mouth/Throat: NL Teeth, Lips, Gums, Mucous Membranes Moist Neck: NL Appearance and Movements; NL JVP, Trachea Midline Respiratory: Symmetrical Chest Expansion and Respiratory Effort, Clear to Auscultation Cardiovascular: NL Sounds; No Murmurs; No JVD, No Edema Abdominal: NL Sounds; No Tenderness; No Distention Extremities: No Edema Neurological: - - 5/5 bilateral. Result Diagrams: 01/01/20 13:15 01/02/20 05:21 Assess/Plan/Problems-Billing Assessment: 64 y/o male admitted for increase ataxia and fall most likely secondary to Cervical myelopathy - Patient Problems (1) Ataxia Current Visit: Yes Status: Acute Code(s): R27.0 - ATAXIA, UNSPECIFIED SNOMED Code(s): 05442832 Comment: - I suspect it is related to his cervical myelopathy seen on 2018 MRI - Will repeat Cervical MRI - consult neurosurgery in am - PT/OT (2) Cervical spinal cord compression Current Visit: No Status: Acute Code(s): G95.20 - UNSPECIFIED CORD COMPRESSION SNOMED Code(s): 92885454 Comment: - I suspect it is related to his cervical myelopathy seen on 2018 MRI - Will repeat Cervical MRI - consult neurosurgery in am - PT/OT (3) HTN (hypertension) Current Visit: No Status: Acute Code(s): I10 - ESSENTIAL (PRIMARY) HYPERTENSION SNOMED Code(s): 00227431 Comment: - Metprolol 50 mg daily
[2020-01-02] MEDS ORDERED: Diazepam TAB(*) 5 MG PO PRN (17:15)
[2020-01-02] MEDS ORDERED: NS 0.9% 250 ML* 250 ML ONE (21:17)
[2020-01-02] MEDS: Metoprolol Succinate XL TAB* 50 MG PO SCH (21:24)
[2020-01-02] MEDS: Atorvastatin* 10 MG TAB PO SCH (21:24)
[2020-01-02] MEDS: Magnesium Oxide TAB* 400 MG PO SCH (21:25)
[2020-01-03] MEDS: Thiamine INJ* 500 MG in NS 0.9% 250 ML* 250 ML IV SCH ×2 (04:53→13:45)
[2020-01-03] MEDS ORDERED: Magnesium Sulfate 2 GM IV* 2 GM/50 ML BAG IVPB ONE (08:17)
[2020-01-03] MEDS: Pantoprazole TAB * 40 MG TAB PO SCH (09:29)
[2020-01-03] MEDS: Valsartan TAB* 160 MG PO SCH (09:30)
[2020-01-03] MEDS: Ascorbic Acid TAB* 500 MG PO SCH (09:30)
[2020-01-03] MEDS: Multivitamins/Minerals TAB PO SCH (09:30)
[2020-01-03] MEDS: buPROPion SR TAB.SR* 100 MG PO SCH (09:30)
[2020-01-03] MEDS: Magnesium Oxide TAB* 400 MG PO SCH ×2 (09:31→20:17)
[2020-01-03] MEDS: Folic Acid TAB* 1 MG PO SCH (09:31)
[2020-01-03] MEDS: Potassium Chlor TAB* 20 MEQ TAB.ER PO SCH ×2 (09:32→20:15)
[2020-01-03] MEDS ORDERED: Gadoteridol* (CONTRAST) 279.3 MG/ML 10 ML IV ONE (14:43)
--- NOTE | 2020-01-03 15:49 | PN ---
Subjective Date of Service: 01/03/20 Interval History: Patient seen today, he was out of bed and participated with PT. MRI ordered and result did reveals severe central canal stenosis at C4-C5; C5-C6. Spoke to neurosurgery unavailable today. will consult them for am. Meanwhile will place him on cervical soft neck collar and fall precautions. Past Medical History: Unchanged from Admission Objective Active Medications: Acetaminophen (Tylenol Tab*) 650 mg PO Q6H PRN PRN Reason: FEVER/PAIN Ascorbic Acid (Vitamin C Tab*) 500 mg PO QAM [facility] Last Admin: 01/03/20 09:30 Dose: 500 mg Atorvastatin Calcium (Lipitor*) 10 mg PO BEDTIME [facility] Last Admin: 01/02/20 21:24 Dose: 10 mg Bupropion HCl (Wellbutrin Sr Tab*) 100 mg PO QAM [facility] Last Admin: 01/03/20 09:30 Dose: 100 mg Diazepam (Valium Tab(*)) 5 mg PO ONCE PRN PRN Reason: ANXIETY Last Admin: 01/03/20 13:52 Dose: 5 mg Folic Acid (Folvite Tab*) 1 mg PO DAILY [facility] Last Admin: 01/03/20 09:31 Dose: 1 mg Thiamine HCl 500 mg/ Sodium (Chloride) 255 mls @ 255 mls/hr IV Q8H [facility] Stop: 01/03/20 20:59 Last Admin: 01/03/20 13:45 Dose: 255 mls/hr Lorazepam (Ativan Tab(*)) 0 - 6 mg PO .PER [facility] PROTOCOL [facility]; Protocol Magnesium Oxide (Magox 400 Tab*) 800 mg PO BID [facility] Last Admin: 01/03/20 09:31 Dose: 800 mg Metoprolol Succinate (Toprol Xl Tab*) 50 mg PO BEDTIME [facility] Last Admin: 01/02/20 21:24 Dose: 50 mg Miscellaneous (Ativan Pyxis Chi) 1 ea N/A .ATIVAN IV CHI PRN PRN Reason: PYXIS CHI Multivitamins/Minerals (Theragran/Minerals Tab*) 1 tab PO DAILY [facility] Last Admin: 01/03/20 09:30 Dose: 1 tab Ondansetron HCl (Zofran Inj*) 4 mg IV Q6H PRN PRN Reason: NAUSEA Pantoprazole Sodium (Protonix Tab*) 40 mg PO DAILY [facility] Last Admin: 01/03/20 09:29 Dose: 40 mg Potassium Chloride (Klor Con Er Tab*) 20 meq PO BID [facility] Last Admin: 01/03/20 09:32 Dose: 20 meq Valsartan (Diovan Tab*) 160 mg PO QAM [facility] Last Admin: 01/03/20 09:30 Dose: 160 mg Vital Signs - 8 hr 01/03/20 01/03/20 01/03/20 08:00 09:01 13:52 Temperature 97.5 F Pulse Rate 80 Respiratory 18 18 16 Rate Blood Pressure 145/77 (mmHg) O2 Sat by Pulse 99 Oximetry Oxygen Devices in Use Now: None Appearance: Awake, alert no distress Eyes: No Scleral Icterus, - - EOMI Ears/Nose/Mouth/Throat: NL Teeth, Lips, Gums Neck: NL Appearance and Movements; NL JVP, Trachea Midline Respiratory: Symmetrical Chest Expansion and Respiratory Effort, Clear to Auscultation Cardiovascular: NL Sounds; No Murmurs; No JVD, No Edema Abdominal: NL Sounds; No Tenderness; No Distention Neurological: Alert and Oriented x 3, - - Both upper and lower extremties ataxia. Result Diagrams: 01/01/20 13:15 01/02/20 05:21 Assess/Plan/Problems-Billing Assessment: 64 y/o male admitted for increase ataxia and fall most likely secondary to Cervical myelopathy - Patient Problems (1) Ataxia Current Visit: Yes Status: Acute Code(s): R27.0 - ATAXIA, UNSPECIFIED SNOMED Code(s): 58244958 Comment: - I suspect it is related to his cervical myelopathy seen on 2018 MRI - repeat Cervical MRI reveals severe canal stenosis at C4-C5 and C5-6 - I will consult neurosurgery in am (not available today) - PT/OT - Cervical collar soft collar. Will avoid torres martinez-J collar for now as I am concerned will cause acute hyperextension. will start with the soft cervical neck collar (2) Cervical spinal cord compression Current Visit: No Status: Acute Code(s): G95.20 - UNSPECIFIED CORD COMPRESSION SNOMED Code(s): 38238208 Comment: - I suspect it is related to his cervical myelopathy seen on 2018 MRI - repeat Cervical MRI reveals severe canal stenosis at C4-C5 and C5-6 - I will consult neurosurgery in am (not available today) - PT/OT - Cervical collar soft collar. Will avoid torres martinez-J collar for now as I am concerned will cause acute hyperextension. will start with the soft cervical neck collar (3) History of alcohol dependence Current Visit: Yes Status: Acute Code(s): F10.21 - ALCOHOL DEPENDENCE, IN REMISSION SNOMED Code(s): 818401803 Comment: - Will continue WAM and if remain negative will D/c in am (4) HTN (hypertension) Current Visit: No Status: Acute Code(s): I10 - ESSENTIAL (PRIMARY) HYPERTENSION SNOMED Code(s): 94495214 Comment: - Metprolol 50 mg daily (5) DVT prophylaxis Current Visit: No Status: Acute Code(s): QAG4007 - SNOMED Code(s): 819335376 Comment: DINAA
[2020-01-03] MEDS: Atorvastatin* 10 MG TAB PO SCH (20:15)
[2020-01-03] MEDS: Metoprolol Succinate XL TAB* 50 MG PO SCH (20:17)
[2020-01-03] MEDS: Heparin VIAL(*) 5000 UNITS/ML VIAL (FIVE THOUSAND) SUBCUT SCH (20:17)
[2020-01-04] MEDS: Heparin VIAL(*) 5000 UNITS/ML VIAL (FIVE THOUSAND) SUBCUT SCH ×3 (05:50→21:28)
[2020-01-04] MEDS: Ascorbic Acid TAB* 500 MG PO SCH (09:46)
[2020-01-04] MEDS: Folic Acid TAB* 1 MG PO SCH ×2 (09:46→09:56)
[2020-01-04] MEDS: Magnesium Oxide TAB* 400 MG PO SCH ×2 (09:46→19:38)
[2020-01-04] MEDS: buPROPion SR TAB.SR* 100 MG PO SCH (09:46)
[2020-01-04] MEDS: Valsartan TAB* 160 MG PO SCH (09:46)
[2020-01-04] MEDS: Potassium Chlor TAB* 20 MEQ TAB.ER PO SCH ×2 (09:46→19:39)
[2020-01-04] MEDS: Multivitamins/Minerals TAB PO SCH (09:47)
[2020-01-04] MEDS: Pantoprazole TAB * 40 MG TAB PO SCH (09:47)
--- NOTE | 2020-01-04 10:05 | PN ---
Subjective Date of Service: 01/04/20 Interval History: Patient states feels significant improvement with the placement of his soft neck collar. He feels he is not shaking as much and gait improved. I spoke to Dr. York and scheduled to see him today. no urine or stool incontinence Past Medical History: Unchanged from Admission Objective Active Medications: Acetaminophen (Tylenol Tab*) 650 mg PO Q6H PRN PRN Reason: FEVER/PAIN Ascorbic Acid (Vitamin C Tab*) 500 mg PO QAM [facility] Last Admin: 01/04/20 09:46 Dose: 500 mg Atorvastatin Calcium (Lipitor*) 10 mg PO BEDTIME [facility] Last Admin: 01/03/20 20:15 Dose: 10 mg Bupropion HCl (Wellbutrin Sr Tab*) 100 mg PO QAM [facility] Last Admin: 01/04/20 09:46 Dose: 100 mg Diazepam (Valium Tab(*)) 5 mg PO ONCE PRN PRN Reason: ANXIETY Last Admin: 01/03/20 13:52 Dose: 5 mg Folic Acid (Folvite Tab*) 1 mg PO DAILY [facility] Last Admin: 01/04/20 09:56 Dose: 1 mg Heparin Sodium (Porcine) (Heparin Vial(*)) 5,000 units SUBCUT Q8HR [facility] Last Admin: 01/04/20 05:50 Dose: 5,000 units Lorazepam (Ativan Tab(*)) 0 - 6 mg PO .PER [facility] PROTOCOL [facility]; Protocol Magnesium Oxide (Magox 400 Tab*) 800 mg PO BID [facility] Last Admin: 01/04/20 09:46 Dose: 800 mg Metoprolol Succinate (Toprol Xl Tab*) 50 mg PO BEDTIME [facility] Last Admin: 01/03/20 20:17 Dose: 50 mg Miscellaneous (Ativan Pyxis Chi) 1 ea N/A .ATIVAN IV CHI PRN PRN Reason: PYXIS CHI Multivitamins/Minerals (Theragran/Minerals Tab*) 1 tab PO DAILY [facility] Last Admin: 01/04/20 09:47 Dose: 1 tab Ondansetron HCl (Zofran Inj*) 4 mg IV Q6H PRN PRN Reason: NAUSEA Pantoprazole Sodium (Protonix Tab*) 40 mg PO DAILY [facility] Last Admin: 01/04/20 09:47 Dose: 40 mg Potassium Chloride (Klor Con Er Tab*) 20 meq PO BID [facility] Last Admin: 03/17/20 09:46 Dose: 20 meq Valsartan (Diovan Tab*) 160 mg PO QAM [facility] Last Admin: 01/04/20 09:46 Dose: 160 mg Vital Signs - 8 hr 01/04/20 01/04/20 03:08 07:32 Temperature 98.0 F 97.4 F Pulse Rate 69 71 Respiratory 19 18 Rate Blood Pressure 137/75 139/85 (mmHg) O2 Sat by Pulse 100 100 Oximetry Oxygen Devices in Use Now: None Appearance: awake ,alert no distress Eyes: No Scleral Icterus, - - EOMI Ears/Nose/Mouth/Throat: NL Teeth, Lips, Gums, Mucous Membranes Moist Neck: NL Appearance and Movements; NL JVP, Trachea Midline Respiratory: Symmetrical Chest Expansion and Respiratory Effort, Clear to Auscultation Cardiovascular: NL Sounds; No Murmurs; No JVD, RRR, No Edema Abdominal: NL Sounds; No Tenderness; No Distention Extremities: No Edema Skin: No Rash or Ulcers Neurological: Alert and Oriented x 3 Result Diagrams: 01/01/20 13:15 01/02/20 05:21 Assess/Plan/Problems-Billing Assessment: 64 y/o male admitted for increase ataxia and fall most likely secondary to Cervical myelopathy - Patient Problems (1) Ataxia Current Visit: Yes Status: Acute Code(s): R27.0 - ATAXIA, UNSPECIFIED SNOMED Code(s): 25063080 Comment: - I suspect it is related to his cervical myelopathy seen on 2018 MRI - repeat Cervical MRI reveals severe canal stenosis at C4-C5 and C5-6 - I did consult neurosurgery, PT/OT - Cervical collar soft collar. (2) Cervical spinal cord compression Current Visit: No Status: Acute Code(s): G95.20 - UNSPECIFIED CORD COMPRESSION SNOMED Code(s): 41410134 Comment: - I suspect it is related to his cervical myelopathy seen on 2018 MRI - repeat Cervical MRI reveals severe canal stenosis at C4-C5 and C5-6 - I did consult neurosurgery, PT/OT - Cervical collar soft collar. (3) History of alcohol dependence Current Visit: Yes Status: Acute Code(s): F10.21 - ALCOHOL DEPENDENCE, IN REMISSION SNOMED Code(s): 402353501 Comment: - Will discontinue WAM (4) HTN (hypertension) Current Visit: No Status: Acute Code(s): I10 - ESSENTIAL (PRIMARY) HYPERTENSION SNOMED Code(s): 85155004 Comment: - Metprolol 50 mg daily (5) DVT prophylaxis Current Visit: No Status: Acute Code(s): YDL3450 - SNOMED Code(s): 048653709 Comment: DIANA
--- NOTE | 2020-01-04 17:35 | CONS ---
AMENDED REPORT NOW INCLUDES DATE OF CONSULT - ESIGNED BEFORE ADJUSTMENT CONSULTATION NOTE: DATE OF CONSULT: 01/04/20 HISTORY OF PRESENT ILLNESS: The patient is a very pleasant 64-year-old right- handed gentleman with past medical history of Wernicke's encephalopathy, alcoholism, cervical spine compression, hypothyroidism, and hyperlipidemia, who was recently admitted to the hospital for multiple falls. The patient had a previous fall from a 1 flight of stairs approximately 2 years ago. He reported that he started having lower extremity neuropathy with loss of sensation below his knees, which improved with physical therapy. Approximately 4 days ago, he reports that he had another fall while he was trying to get to the bathroom. He did not lose his consciousness. He denies neck or back pain, but he was brought to the emergency room because of subsequent falls. He reports that he had significant weakness in the lower extremities at that time. He reports that now he is back to his baseline. He denies any neck pain. He denies any back pain. He reports that he has no new weakness of his upper or lower extremities, although he noticed with walking with physical therapy that he has a left footdrop, he has been dragging his foot for quite a while as he reports. He reports that he has decreased sensation in his fingertips and bilateral lower extremities below the mid calf level and this is his baseline. He ambulates with significant difficulty. He does have difficulty with his balance and has frequent falls. He feels unsteady on his feet. He also has difficulty with his dexterity for a long time. The patient is retired. 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 He is , lives alone, and he has 1 daughter who lives in [place]. The patient reports that he had episodes of urinary urgency and cannot make it to the bathroom and he had a few episodes of loss of bowel control recently. The patient reports that he has had constipation followed by diarrhea, and now, he has little bit of better formed stool, but still cannot feel when he has to have a bowel movement. He reports that he has no loss of perianal sensation. PAST MEDICAL HISTORY: Wernicke's encephalopathy, history of cervical stenosis, alcohol abuse, hypertension, hyperlipidemia. MEDICATIONS: The patient is on: 1. Ascorbic acid. 2. Tylenol. 3. Multivitamin. 4. Metoprolol. 5. Magnesium. 6. Saw palmetto. 7. Omeprazole. 8. [place]-3. 9. Simvastatin. 10. Bupropion. 11. Valsartan. ALLERGIES: HYDROCHLOROTHIAZIDE, LISINOPRIL, CITALOPRAM. SOCIAL HISTORY: The patient is a former smoker. Alcohol positive, he drinks 3 beers per day as he reports. Recreational drug use, negative. PHYSICAL EXAM: The patient is not in acute distress. He is awake, alert, and oriented x3. His pupils are equal and reactive. Cranial nerves II through XII are grossly intact. Motor 4-5/5 in all extremities with exception of the left foot dorsiflexion and EHL which is 0-1/5. Sensory grossly intact to light touch except decreased sensation below his mid calf level in both lower extremities. Deep tendon reflexes +3 bilaterally symmetrically. He has positive Babinski. Clonus negative. He has positive Noman's sign bilaterally. The patient has no tenderness to palpation of the thoracic or lumbar spine. Rectal exam revealed normal perineal sensation , good tone and voluntary contraction of his sphincter. He has free range of motion of the cervical spine. The patient has a cervical collar and he reports that his symptoms improved after the application of the collar. DIAGNOSTIC STUDIES: The patient had a CT scan of the brain that did not reveal any acute change. The patient had an MRI of his cervical spine revealing degenerative disk disease with severe stenosis at C4-5 and C5-6 and to a lesser degree at C3-4 and C6-7 with spinal cord signal changes consistent with myelomalacia. ASSESSMENT: The patient is a very pleasant 64-year-old right-handed gentleman with past medical history of Wernicke's encephalopathy, alcoholism, hypertension , hyperlipidemia, with difficulty with ambulation, loss of balance, ataxia, and MRI findings consistent with cervical stenosis with myelomalacia. PLAN: The patient at this point is improved with the use of cervical collar as he reports. Based on his imaging and his clinical exam that he has evidence of cervical spondylotic myelopathy, I think that surgical intervention in the form of possible posterior cervical decompression and fusion at C3 to C6 might be a reasonable option for him. Nevertheless, because of the presence of the left footdrop which is painless as well as the severe ataxia and asterixis, further imaging with MRI of the brain, thoracic, and lumbar spine may be reasonable as well as consideration for neurology consultation. Discussed with the patient regarding nonsurgical and surgical options as well as expectations, limitations , and possible complications of the procedure with complications including, but not limited to bleeding, infection, risk of injury to adjacent structures, coma , paralysis, , need for additional procedures, anesthesia risks, stroke, blindness, cancer, instability, hardware failure, adjacent level disease, pseudoarthrosis, proximal/distal junctional kyphosis, spinal fluid leak, hematoma formation, deep venous thrombosis, pulmonary embolism, injury to the trachea or esophagus, need for tracheostomy or gastrostomy, need for prolonged ICU stay, prolonged rehabilitation, prolonged hospitalization. The patient understood that the goal of the procedure is not to improve his condition but to stabilize hopefully his myelopathy and that with surgical intervention he may not improve and in fact may get worse. He also understood that he may need to have additional procedures in the future and that the operative plan may be modified according to intraoperative findings and conditions. The patient at this point would like to discuss with his daughter before making any further decisions. He attempted to call at our advice his daughter from the bedside, but it was not possible to talk to the patient's daughter as she was not available. I also tried to contact his daughter, Araceli, at [phone] and left a message also. Thank you for allowing us to participate in the care of this patient. Please do not hesitate to contact our office in case if you have any further questions or concerns regarding the care of this patient. [id number]/CPS #: [id number] AGUSTO
[2020-01-04] MEDS: Metoprolol Succinate XL TAB* 50 MG PO SCH (19:38)
[2020-01-04] MEDS: Atorvastatin* 10 MG TAB PO SCH (19:39)
[2020-01-04] MEDS ORDERED: Melatonin 3 MG TAB PO PRN (20:00)
[2020-01-04] MEDS ORDERED: Diazepam TAB(*) 5 MG PO PRN (22:39)
[2020-01-05 06:00] LABS: ABS Eosinophils 0.1 10^3/ul (0-0.6); ABS Lymphocytes 1.4 10^3/ul (1.0-4.8); ABS Monocytes 0.7 10^3/ul (0-0.8); ABS Neutrophils 4.5 10^3/ul (1.5-7.7); Eosinophil % 1.2 %; Hematocrit 38 % (42-52); Hemoglobin 12.9 g/dL (14.0-18.0); Lymphocyte % 20.8 %; Mean Corpuscular HGB Conc 34 g/dL (31-36); Mean Corpuscular Hemoglobin 35 pg (27-31); Mean Corpuscular Volume 105 fL (80-94); Mean Platelet Volume 7.6 fL (7.4-10.4); Platelet Count 227 10^3/uL (150-450); Red Blood Count 3.65 10^6 /uL (4.18-5.48); Red Cell Distribution Width 14 % (10-15); White Blood Count 6.6 10^3/uL (3.5-10.8)
[2020-01-05 06:16] LABS: BUN/Creatinine Ratio 17.4 (8-20); Calcium 8.4 mg/dL (8.6-10.3); EGFR African American 139.2 (>60); EGFR Non-African American 115.1 (>60); Magnesium 1.8 mg/dL (1.9-2.7); Phosphorus 2.6 mg/dL (2.5-5.0); Potassium 4.1 mmol/L (3.5-5.0)
[2020-01-05] MEDS: Heparin VIAL(*) 5000 UNITS/ML VIAL (FIVE THOUSAND) SUBCUT SCH ×3 (06:33→21:17)
[2020-01-05] MEDS: Multivitamins/Minerals TAB PO SCH (08:47)
[2020-01-05] MEDS: buPROPion SR TAB.SR* 100 MG PO SCH (08:47)
[2020-01-05] MEDS: Potassium Chlor TAB* 20 MEQ TAB.ER PO SCH ×2 (08:48→21:16)
[2020-01-05] MEDS: Pantoprazole TAB * 40 MG TAB PO SCH (08:48)
[2020-01-05] MEDS: Valsartan TAB* 160 MG PO SCH (08:48)
[2020-01-05] MEDS: Folic Acid TAB* 1 MG PO SCH (08:48)
[2020-01-05] MEDS: Magnesium Oxide TAB* 400 MG PO SCH ×2 (08:48→21:16)
[2020-01-05] MEDS: Ascorbic Acid TAB* 500 MG PO SCH (08:48)
--- NOTE | 2020-01-05 10:27 | ECHO ---
*[facility]* [place] [address] Fax #: [phone] Transthoracic Echocardiogram Patient: Odell Kelly : 1955 Study Date: 01/05/2020 Age: 64 Gender: M HR: 65 bpm Height: 74 in /188 cm BSA: 1.86 m^2 Weight: 147.7 lb /67.1 kg BMI: 19 kg/m^2 *Truckload Checker: Sadaf España *Referring Physician: * Caleb AlvesReading Physician: * Mita Ashley MD Indications: ETOH History: Risk factors: Former tobacco use. Hypertension. Dyslipidemia. Conclusions Summary: - Impressions: No previous study was available for comparison. - Left ventricle: The cavity size is normal. Wall thickness is normal. Calcific chordae near the anterior annulus. Systolic function is normal. The estimated ejection fraction is 55-60%. Left ventricular diastolic function parameters are normal. - Right ventricle: Systolic function is normal. - Mitral valve: There is trace regurgitation. - Tricuspid valve: There is trace regurgitation. - No prior echocardiogram to compare. Study data: Transthoracic echocardiogram. Procedure: Transthoracic echocardiography was performed. Image quality was good. Complete 2D, spectral Doppler, and color flow Doppler. Location: Bedside. Patient status: Inpatient. Patient room number: 408-1. Rhythm: Normal sinus rhythm. Findings Left ventricle: The cavity size is normal. Wall thickness is normal. Calcific chordae near the anterior annulus. Systolic function is normal. The estimated ejection fraction is 55-60%. Wall motion is normal; there are no regional wall motion abnormalities. Left ventricular diastolic function parameters are normal. Right ventricle: The cavity size is normal. Systolic function is normal. Left atrium: The atrium is normal in size. Right atrium: The atrium is normal in size. Atrial septum: No defect or patent foramen ovale is identified. Mitral valve: The valve is structurally normal. There is no evidence of stenosis. There is trace regurgitation. Aortic valve: The valve is structurally normal. The valve is trileaflet. Cusp separation is normal. Transvalvular velocity is within the normal range. There is no evidence of stenosis. There is no significant regurgitation. Tricuspid valve: The valve is structurally normal. There is no evidence of stenosis. There is trace regurgitation. Pulmonic valve: The valve is structurally normal. There is no evidence of stenosis. There is trace regurgitation. Aorta: Ascending aorta: The ascending aorta is appears normal. Aortic arch: The aortic arch is poorly visualized. The aortic root appears normal. Pericardium: There is no significant pericardial effusion. Pulmonary arteries: Systolic pressure can not be accurately estimated. Systemic veins: Inferior vena cava: The vessel is normal in size. There is (>= 50%) respiratory change in the IVC dimension. Pulmonary veins: The Pulmonary veins appear normal. Measurements Left ventricle Value Ref Right atrium continued Value Ref AALIYAH, LAX 4.4 cm 4.2 - ML dim, ES, A4C 3.1 cm 2.6 - 5.8 4.4 ESD, LAX 3.1 cm 2.5 - SI dim, ES, A4C 4.8 cm 3.4 - 4.0 5.3 FS, LAX 29 % 25 - 43 PW, ED, LAX 1.0 cm 0.6 - Aortic valve Value Ref 1.0 Peak v, S 0.88 m/sec -------- E', lat jolene, TDI (L) 8.5 cm/sec >=10.0 VTI, S 19.5 cm -- ------ E/e', lat jolene, 9 -------- Mean grad, S 1.7 mm Hg ----- --- TDI Peak grad, S 3.1 mm Hg -------- LVOT/AV, VTI 0.94 -------- LVOT Value Ref ratio Diam, S 2.02 cm -------- KAMINI, VTI 3.00 cm^2 -------- Area 3.2 cm^2 -------- KAMINI, Vmax 2.73 cm^2 -------- Peak alberto, S 0.75 m/sec -------- VTI, S 18.3 cm -------- Mitral valve Value Ref Peak grad, S 2 mm Hg -------- Peak E 0.72 m/sec -------- Mean grad, S 1 mm Hg -------- Peak A 0.74 m/sec -------- Decel time 218 ms -------- Ventricular septum Value Ref Peak grad, D 2.1 mm Hg -------- IVS, ED 1.0 cm 0.6 - Peak E/A ratio 0.97 -------- 1.0 Pulmonic valve Value Ref Right ventricle Value Ref Peak v, S 0.61 m/sec -------- AALIYAH, LAX 2.7 cm -------- Peak grad, S 1.5 mm Hg -------- Left atrium Value Ref Aortic root Value Ref LA ID 4.1 cm -------- Root diam 3.4 cm <4.0 SI dim ES, LAX 4.1 cm -------- ML dim, A4C 3.9 cm -------- Ascending aorta Value Ref SI dim, A4C 4.8 cm -------- AAo AP diam, S 2.8 cm -------- Vol, ES, 2-p 63 ml -------- Vol/bsa, ES, 2-p 34 ml/m^2 16 - 34 Inferior vena cava Value Ref Diam 2.6 cm -------- Right atrium Value Ref SI dim, ES 4.8 cm 3.4 - 5.3 Legend: (L) and (H) jatin values outside specified reference range. Prepared and electronically signed by Mita Ashley MD 01/05/2020 10:27
[2020-01-05] MEDS ORDERED: LORazepam INJ* 2 MG/ML 1 ML VIAL IV PUSH ONE (13:04)
[2020-01-05] MEDS ORDERED: Gadoteridol* (CONTRAST) 279.3 MG/ML 10 ML IV ONE (13:29)
--- NOTE | 2020-01-05 13:32 | PN ---
Subjective Date of Service: 01/05/20 Interval History: Patient tells me his gait feels more steady than yesterday, physical therapist and RN agrees. He denies headache, visual changes, weakness/numbness/tingling in extremities, chest pain, difficulty breathing, fever/chills. Past Medical History: Unchanged from Admission Objective Active Medications: Acetaminophen (Tylenol Tab*) 650 mg PO Q6H PRN PRN Reason: FEVER/PAIN Ascorbic Acid (Vitamin C Tab*) 500 mg PO QAM [facility] Last Admin: 01/05/20 08:48 Dose: 500 mg Atorvastatin Calcium (Lipitor*) 10 mg PO BEDTIME [facility] Last Admin: 01/04/20 19:39 Dose: 10 mg Bupropion HCl (Wellbutrin Sr Tab*) 100 mg PO QAM [facility] Last Admin: 01/05/20 08:47 Dose: 100 mg Diazepam (Valium Tab(*)) 5 mg PO ONCE PRN PRN Reason: ANXIETY Last Admin: 01/03/20 13:52 Dose: 5 mg Diazepam (Valium Tab(*)) 5 mg PO ONCE PRN PRN Reason: ANXIETY Folic Acid (Folvite Tab*) 1 mg PO DAILY [facility] Last Admin: 01/05/20 08:48 Dose: 1 mg Heparin Sodium (Porcine) (Heparin Vial(*)) 5,000 units SUBCUT Q8HR [facility] Last Admin: 01/05/20 06:33 Dose: 5,000 units Magnesium Oxide (Magox 400 Tab*) 800 mg PO BID [facility] Last Admin: 01/05/20 08:48 Dose: 800 mg Melatonin (Melatonin) 3 mg PO BEDTIME PRN PRN Reason: SLEEP Last Admin: 01/04/20 21:28 Dose: 3 mg Metoprolol Succinate (Toprol Xl Tab*) 50 mg PO BEDTIME [facility] Last Admin: 01/04/20 19:38 Dose: 50 mg Miscellaneous (Ativan Pyxis Chi) 1 ea N/A .ATIVAN IV CHI PRN PRN Reason: PYXIS CHI Multivitamins/Minerals (Theragran/Minerals Tab*) 1 tab PO DAILY [facility] Last Admin: 01/05/20 08:47 Dose: 1 tab Ondansetron HCl (Zofran Inj*) 4 mg IV Q6H PRN PRN Reason: NAUSEA Pantoprazole Sodium (Protonix Tab*) 40 mg PO DAILY [facility] Last Admin: 01/05/20 08:48 Dose: 40 mg Potassium Chloride (Klor Con Er Tab*) 20 meq PO BID [facility] Last Admin: 01/05/20 08:48 Dose: 20 meq Valsartan (Diovan Tab*) 160 mg PO QAM [facility] Last Admin: 01/05/20 08:48 Dose: 160 mg Vital Signs - 8 hr 01/05/20 01/05/20 07:15 13:14 Temperature 98.0 F Pulse Rate 71 Respiratory 20 17 Rate Blood Pressure 133/86 (mmHg) O2 Sat by Pulse 100 Oximetry Oxygen Devices in Use Now: None Appearance: Thin, white male sitting in chair, appearing comfortable and in NAD Eyes: No Scleral Icterus, - - PERRL Ears/Nose/Mouth/Throat: Mucous Membranes Moist Neck: Trachea Midline Respiratory: Symmetrical Chest Expansion and Respiratory Effort, Clear to Auscultation Cardiovascular: NL Sounds; No Murmurs; No JVD, RRR Abdominal: - - abd soft/nontender/nondistended Extremities: No Edema, No Clubbing, Cyanosis Skin: No Rash or Ulcers Neurological: Alert and Oriented x 3, - - strength of knee flexion/extension is 5/5 bilaterally; nib finisher strength 5/5 bilat; flexion/extension at elbow strength 5/ 5 bilaterally Result Diagrams: 01/05/20 05:42 01/05/20 05:42 Assess/Plan/Problems-Billing Assessment: 64 y/o male with PMHx alcohol use, prior hx of Wernicke's, HTN, and HLD admitted presented to the hospital due to ataxia and fall at home. - Patient Problems (1) Ataxia Current Visit: Yes Status: Acute Code(s): R27.0 - ATAXIA, UNSPECIFIED SNOMED Code(s): 42911319 Comment: - presented with worsening gait and fall at home, does have prior hx of Wernicke 's - repeat Cervical MRI reveals severe canal stenosis at C4-C5 and C5-6 - appreciate neurosurgery consult - I suspect the severe cervical stenosis and compressive myelopathy is contributing, however this gait has been steadily improving during this hospitalization which leads me to believe that thiamine deficiency was contributing as well - thiamine level still pending - soft cervical collar in place (2) Cervical spinal cord compression Current Visit: No Status: Acute Code(s): G95.20 - UNSPECIFIED CORD COMPRESSION SNOMED Code(s): 25766643 Comment: - noted on cervical spine MRI at site of severe cervical stensosis - likely contributing to ataxia - appreciate neurosurgery consult; MRI brain/T-spine/L-spine ordered per recommendations and without acute findings; appears patient is candidate for surgery and awaiting timeframe (3) History of alcohol dependence Current Visit: Yes Status: Acute Code(s): F10.21 - ALCOHOL DEPENDENCE, IN REMISSION SNOMED Code(s): 911960836 Comment: -SW involved (4) HTN (hypertension) Current Visit: No Status: Acute Code(s): I10 - ESSENTIAL (PRIMARY) HYPERTENSION SNOMED Code(s): 23583176 Comment: -continue metoprolol and valsartan -normotensive (5) Depression Current Visit: Yes Status: Acute Code(s): F32.9 - MAJOR DEPRESSIVE DISORDER , SINGLE EPISODE, UNSPECIFIED SNOMED Code(s): 50788113 Comment: -continue wellbutrin (6) GERD (gastroesophageal reflux disease) Current Visit: Yes Status: Acute Code(s): K21.9 - GASTRO-ESOPHAGEAL REFLUX DISEASE WITHOUT ESOPHAGITIS SNOMED Code(s): 244606861 Comment: -continue PPI (7) HLD (hyperlipidemia) Current Visit: Yes Status: Acute Code(s): E78.5 - HYPERLIPIDEMIA, UNSPECIFIED SNOMED Code(s): 81038955 Comment: -continue statin (8) Hypomagnesemia Current Visit: Yes Status: Acute Code(s): E83.42 - HYPOMAGNESEMIA SNOMED Code(s): 469637234 Comment: -likely related to poor po intake d/t alcohol use -replacing (9) DVT prophylaxis Current Visit: No Status: Acute Code(s): DEG9880 - SNOMED Code(s): 626201670 Comment: -HSQ (10) Full code status Current Visit: No Status: Acute Code(s): Z78.9 - OTHER SPECIFIED HEALTH STATUS SNOMED Code(s): 355035714
[2020-01-05] MEDS ORDERED: Magnesium Oxide TAB* 400 MG PO ONE (13:35)
[2020-01-05] MEDS: Atorvastatin* 10 MG TAB PO SCH (21:15)
[2020-01-05] MEDS: Metoprolol Succinate XL TAB* 50 MG PO SCH (21:16)
--- NOTE | 2020-01-06 00:40 | CONS ---
NEUROLOGY CONSULTATION NOTE: DATE OF CONSULT: 01/05/20 CONSULTING PROVIDER: Dr. Bowens. REASON FOR CONSULT: Left footdrop. CHIEF COMPLAINT: Left footdrop. HISTORY OF PRESENT ILLNESS: Mr. Kelly is a 64-year-old right-handed man who has history of alcohol abuse, cervical spine spondylosis with myelopathy, hypertension, who presented to [facility] on 01/01/20. The patient stated that he has had 3 falls throughout the night within less than 12-hour period. He called his brother and informed him that he was unable to ambulate. He refused to come to the hospital. His brother went to checkup on him and found that he was unable to stand and ambulate. EMS was contacted and the patient was brought into the ED for further evaluation. The patient denied any neck or low back pain. He denied any impairment in his bowel or bladder function. The patient stated that he stopped consuming alcohol for the past 10 days since today. For the past few years, he has been averaging 3 beers a day, but he was drinking more than that in the prior years. The patient denied any weakness other than he was found to have a left footdrop by PT yesterday. The patient stated that he was unaware of the footdrop. The patient states that he has no paraesthesias or pain. He sometimes cannot feel the bottom of his feet. He was brought in for further evaluation. The patient had a brain CT that showed diffuse cortical atrophy with no evidence of acute intracranial abnormality. An MRI of the cervical spine without contrast was obtained and showed degenerative disk disease with severe narrowing of the central canal at C4-C5 and C5-C6 with moderate narrowing at C6- C7 and mild narrowing at C3-4. There is multilevel neural foraminal narrowing. There is also elevated cord signal with volume loss opposite of the C4 and C5 consistent with myelomalacia, presumably from a compressive myelopathy given the associated spinal stenosis. Due to his footdrop, Dr. Bowens had recommended an MRI of the brain, lumbar spine, thoracic spine. The MRI of the brain showed significant amount of brain stem and cortical atrophy with no evidence of mass effect, tumors, or stroke. The lumbar spine MRI showed evidence of multilevel neural foraminal narrowing with degenerative disk and osteoarthritis was pronounced along the lower lumbar spine with moderate narrowing of the central canal at L4-S1 with mild narrowing at L3-L4 and L4-L5. The patient also had an MRI of the thoracic spine that showed hematopoietic conversion of fatty marrow, which can be seen with chronic anemia. There was degenerative disk disease and osteoarthritis without significant neural foraminal narrowing. He had a transthoracic echo today that was notable for an ejection fraction of 55% to 60%. According to KARIE Espinoza, the patient had received high-dose thiamine treatment over the past few days and his gait instability and tremors have improved. The patient also endorses mild improvement. LABORATORY DATA: The patient had a WBC of 6.6, hemoglobin of 12, hematocrit of 38, platelet count of 227, magnesium of 1.8. PAST MEDICAL HISTORY: Cervical spine compression, alcohol abuse, hypertension, dyslipidemia. MEDICATIONS: 1. Ascorbic acid. 2. Bupropion 100 mg p.o. in the morning. 3. Valsartan 160 mg p.o. in the morning. 4. Simvastatin 20 mg p.o. at bedtime. 5. [place]-3. 6. Metoprolol 50 mg p.o. at bedtime. 7. Saw palmetto 450 p.o. daily. 8. Omeprazole 20 mg p.o. daily. 9. Acetaminophen 650 mg p.o. q.6 hours. 10. Magnesium 800 mg p.o. daily. ALLERGIES: HYDROCHLOROTHIAZIDE, LISINOPRIL, CITALOPRAM. SOCIAL HISTORY: The patient lives alone. He is not . He is a former smoker. He has been drinking 2 to 3 beers prior to 10 days ago. REVIEW OF SYSTEMS: A 14-point review of systems was obtained, otherwise negative except for what was mentioned in the HPI. The patient states that during the falls, he had denied any loss of consciousness or head injury. Please note that the patient has lost approximately 15 pounds over the period of 3 months. PHYSICAL EXAMINATION: Vital Signs: Temperature of 97.7, pulse rate of 88, respiratory rate of 16, oxygen saturation of 100, blood pressure of 112/72. General: A chronic ill-appearing man, in no acute distress. Head: Atraumatic , normocephalic without any obvious abnormality. Neck is supple. He has got a soft cervical collar. Eyes: Conjunctivae/corneas are clear. Cardiovascular: Regular rate and rhythm with normal S1, S2. Pulmonary: Clear to auscultation bilaterally with no wheezing or rhonchi. Extremities: No cyanosis or edema. Skin: No skin lesions or lacerations. Psych: Affect is broad, normal mood. Neurological Examination: Mental Status: Awake, alert, oriented to person, place, time, and general circumstances. Speech and language including repetition, fluency, comprehension, and naming were assessed and found to be normal. Cranial Nerves: Pupils equal, round, reactive to light. Extraocular muscles are intact. There is no ptosis. He has normal sensation in the face bilaterally. He has normal facial asymmetry. Tongue is symmetric in midline with no atrophy or fasciculation. Motor Examination: The patient has distal lower extremity atrophy. He also has increased tone and spasticity of both lower extremities. He has upper motor neuron pyramidal weakness of the left upper and lower extremity with more weakness in the deltoid, triceps, hip flexors, knee flexors, and definitely with ankle dorsiflexion inversion greater than eversion and extensor hallucis longus. The proximal left upper extremity weakness is graded as 4/5, the proximal lower extremity weakness is 4/5 and the distal lower extremity weakness is 3+ to 4-/5. He has mild weakness to the extensor hallucis longus on the right graded as 4+/5. Otherwise, he has got 5/ 5 strength throughout. Sensation is intact to light touch and pinprick. There is a sensory level at C6-C7 to pinprick. He has absent vibration at the toes, medial malleolus. Reflexes: Hyperreflexia graded as 3+ in the biceps, triceps , brachioradialis, knees but 0 at the ankles. He has got upgoing plantar responses on the right, new on the left. He has got positive crossed adductor signs bilaterally. Positive Hall's signs bilaterally. Coordination: Normal finger- to-nose testing bilaterally. He does have a tremor that is worse on extension. The patient has not noticed any improvement in the tremor with alcohol because he has not noticed a tremor outside this admission. I cannot appreciate any asterixis. Gait: Wide-based spastic gait with positive Romberg sign. Labs, imaging, and other diagnostic testing as mentioned in the HPI. ASSESSMENT AND RECOMMENDATIONS: Mr. Odell Kelly is a 64-year-old man with history of alcohol abuse with frequent falls due to unsteady gait, ataxia, spasticity, and lower extremity weakness. The patient's examination is notable for upper motor neuron weakness involving the left upper and lower extremity, spasticity, and hyperreflexia, and absence of the reflex in the ankles as well as absent of the vibration and proprioception sensation of the great toes bilaterally. He does have evidence of footdrop on the left side, but also this is associated with an upper motor neuron pattern of weakness on the left upper and lower extremities. This pattern of weakness is caused by the cervical spine disease, which can be explained by a high pressure exerted on the anterior cervical cord due to the cervical spinal canal stenosis that is attributing to the central cause of left footdrop. Again, please note that the footdrop is extensively manifested on his examination, but he also has other areas where he is weak including the left upper extremity. I do suspect that his ataxia is related to the combination of cervical spondylosis with myelopathy and spasticity which is superimposed to underlying [id number] alcohol related neuropathy (absent ankle reflex and distal to proximal length dependent sensory loss in the legs). The reported improvement in his gait and tremors is probably due to thiamine repletion as a result of underlying vitamin B1 deficiency. I do not think he has Wernicke's encephalopathy since he is not confused nor does he have any ophthalmoplegia on examination. I do agree on continuing the thiamine repletion at least 100 mg a day, indefinitely. The tremors are attributable to alcohol withdrawal effect, which seems to be clinically improving. I had a long discussion with the patient today. I informed him that he has severe cervical spondylosis meaning degenerative disk disease that is compressing on the cervical spine and that will eventually result in quadriplegia. He is contemplating surgery, at least he does not want to have surgery at [facility]. I have informed him that the longer that he takes from deviating away from surgery the worse he may get. I also walked the patient to a nearby computer and reviewed the cervical spine imaging so he can acknowledge the degree of spine compression. The patient will have further discussion with Dr. Bowens and the primary team tomorrow regarding surgery. I do not recommend any further workup. I advised the patient to wean himself off the alcohol for which he has been sober for 10 days. I answered all the patient's questions to the best of my ability. I urged the patient to make a decision sooner than later regarding surgery in order to prevent any further deterioration of his neurological exam. [id number]/[facility] #: [id number] AGUSTO
[2020-01-06] MEDS: Heparin VIAL(*) 5000 UNITS/ML VIAL (FIVE THOUSAND) SUBCUT SCH ×3 (06:27→20:55)
[2020-01-06] MEDS: Pantoprazole TAB * 40 MG TAB PO SCH (07:36)
[2020-01-06] MEDS: Multivitamins/Minerals TAB PO SCH (07:36)
[2020-01-06] MEDS: Potassium Chlor TAB* 20 MEQ TAB.ER PO SCH ×2 (07:36→20:55)
[2020-01-06] MEDS: Valsartan TAB* 160 MG PO SCH (07:36)
[2020-01-06] MEDS: Magnesium Oxide TAB* 400 MG PO SCH ×2 (07:37→20:56)
[2020-01-06] MEDS: Ascorbic Acid TAB* 500 MG PO SCH (07:37)
[2020-01-06] MEDS: buPROPion SR TAB.SR* 100 MG PO SCH (07:38)
[2020-01-06] MEDS: Folic Acid TAB* 1 MG PO SCH (07:38)
--- NOTE | 2020-01-06 14:34 | PN ---
Subjective Date of Service: 01/06/20 Interval History: HD6 on 01/05 64 M with history of Alcohol Use Disorder with Wernick's Encephalopathy, Cervical SPine Compression, HTN, Depression presented with MUltiple falls, wekaness, ataxia and loss of appetite. Found to have severe cervical stenosis at C4-C5 and C5-C6. Deciding about surgery. Overnight: No acute overnight events Patient seen and examined at bedside. Patient sitting on a chair and having a breakfast. Patient feels he is improving every day and feels far better than when he came here. Although he complains of numbness and tingling on his fingers. He is having stool incontinent while urinating which he says me is present for last 3 days. He has still not decided about the surgery; wants to speak to his daughter. he will let us know as soon as they decide. Objective Active Medications: Acetaminophen (Tylenol Tab*) 650 mg PO Q6H PRN PRN Reason: FEVER/PAIN Ascorbic Acid (Vitamin C Tab*) 500 mg PO QAM [facility] Last Admin: 01/06/20 07:37 Dose: 500 mg Atorvastatin Calcium (Lipitor*) 10 mg PO BEDTIME [facility] Last Admin: 01/05/20 21:15 Dose: 10 mg Bupropion HCl (Wellbutrin Sr Tab*) 100 mg PO QAM [facility] Last Admin: 01/06/20 07:38 Dose: 100 mg Folic Acid (Folvite Tab*) 1 mg PO DAILY [facility] Last Admin: 01/06/20 07:38 Dose: 1 mg Heparin Sodium (Porcine) (Heparin Vial(*)) 5,000 units SUBCUT Q8HR [facility] Last Admin: 01/06/20 13:52 Dose: 5,000 units Magnesium Oxide (Magox 400 Tab*) 800 mg PO BID [facility] Last Admin: 01/06/20 07:37 Dose: 800 mg Melatonin (Melatonin) 3 mg PO BEDTIME PRN PRN Reason: SLEEP Last Admin: 01/04/20 21:28 Dose: 3 mg Metoprolol Succinate (Toprol Xl Tab*) 50 mg PO BEDTIME [facility] Last Admin: 01/05/20 21:16 Dose: 50 mg Miscellaneous (Ativan Pyxis Maldonado) 1 ea N/A .ATIVAN IV MALDONADO PRN PRN Reason: PYXIS MALDONADO Multivitamins/Minerals (Theragran/Minerals Tab*) 1 tab PO DAILY [facility] Last Admin: 01/06/20 07:36 Dose: 1 tab Ondansetron HCl (Zofran Inj*) 4 mg IV Q6H PRN PRN Reason: NAUSEA Pantoprazole Sodium (Protonix Tab*) 40 mg PO DAILY [facility] Last Admin: 01/06/20 07:36 Dose: 40 mg Potassium Chloride (Klor Con Er Tab*) 20 meq PO BID [facility] Last Admin: 01/06/20 07:36 Dose: 20 meq Valsartan (Diovan Tab*) 160 mg PO QAM [facility] Last Admin: 01/06/20 07:36 Dose: 160 mg Vital Signs - 8 hr 01/06/20 01/06/20 01/06/20 07:15 07:47 11:15 Temperature 98.2 F 97.9 F Pulse Rate 68 83 Respiratory 18 18 16 Rate Blood Pressure 142/63 107/70 (mmHg) O2 Sat by Pulse 99 100 Oximetry Oxygen Devices in Use Now: None Exam: Appearance: Thin, white male sitting in chair, appearing comfortable and in NAD Eyes: No Scleral Icterus, - - PERRLA Ears/Nose/Mouth/Throat: Mucous Membranes Moist Neck: Trachea Midline Respiratory: Symmetrical Chest Expansion and Respiratory Effort, Clear to Auscultation Cardiovascular: NL Sounds; No Murmurs; No JVD, RRR Abdominal: - - abd soft/nontender/nondistended Extremities: No Edema, No Clubbing, Cyanosis Skin: No Rash or Ulcers Neurological: Alert and Oriented x 3, - -tremor seen on left hand. CN intact. LUE 4/5 RUE 5/5. Sensation intact. Result Diagrams: 01/05/20 05:42 01/05/20 05:42 Assess/Plan/Problems-Billing Assessment: 64 M with history of Alcohol Use Disorder with Wernick's Encephalopathy, Cervical Spine Compression, HTN, Depression presented with MUltiple falls, weakness, ataxia and loss of appetite. Found to have severe cervical stenosis at C4-C5 and C5-C6. Pt is deciding about surgery. - Patient Problems (1) Ataxia Current Visit: Yes Status: Acute Code(s): R27.0 - ATAXIA, UNSPECIFIED SNOMED Code(s): 54985694 Comment: - presented with worsening gait and fall at home, does have prior hx of Wernicke 's - repeat Cervical MRI reveals severe canal stenosis at C4-C5 and C5-6 - appreciate neurosurgery consult -Patient ataxia is improving and is working with physical therapy; his improvement could be from thiamine repletion; although stenosis playing major role. - soft cervical collar in place -sent B12, thiamine; pending (2) Cervical spinal cord compression Current Visit: No Status: Acute Code(s): G95.20 - UNSPECIFIED CORD COMPRESSION SNOMED Code(s): 26791714 Comment: - noted on cervical spine MRI at site of severe cervical stensosis - likely contributing to ataxia - appreciate neurosurgery consult -Lumbar spine MRI showing moderates stenosis on L5-S1 -No acute changes on thoracic spine -Surgical treatment recommended by Neurosurgeon but patient is still deciding about it and will discuss with daughter; We dicussed about deciding it earlier than later. -His stool incontinence while urinating is also likely reflective of this compression; No other neurological sx; No caudaequina sx. (3) Depression Current Visit: Yes Status: Acute Code(s): F32.9 - MAJOR DEPRESSIVE DISORDER , SINGLE EPISODE, UNSPECIFIED SNOMED Code(s): 00833708 Comment: -continue wellbutrin (4) GERD (gastroesophageal reflux disease) Current Visit: Yes Status: Acute Code(s): K21.9 - GASTRO-ESOPHAGEAL REFLUX DISEASE WITHOUT ESOPHAGITIS SNOMED Code(s): 167759864 Comment: -continue PPI (5) HLD (hyperlipidemia) Current Visit: Yes Status: Acute Code(s): E78.5 - HYPERLIPIDEMIA, UNSPECIFIED SNOMED Code(s): 92629066 Comment: -continue statin (6) History of alcohol dependence Current Visit: Yes Status: Acute Code(s): F10.21 - ALCOHOL DEPENDENCE, IN REMISSION SNOMED Code(s): 040206403 Comment: -heavy drinker before; currently only drinking 2 beers perday -Serum alcohol on presentation <10. -SW involved (7) DVT prophylaxis Current Visit: No Status: Acute Code(s): BER0080 - SNOMED Code(s): 964283268 Comment: -HSQ (8) Full code status Current Visit: No Status: Acute Code(s): Z78.9 - OTHER SPECIFIED HEALTH STATUS SNOMED Code(s): 538806395 Status and Disposition: Inpatient Deciding about surgery Attending: Winter Winkler Attestation Documenting Resident: Rios Supervising Physician: Peterson Attending/Supervising Physician Comment: Mr. Kelly has decided that he will not have the surgery that has been offered by Dr. Bowens. He is able to articulate his options of proceeding with surgery versus waiting and searching out other neurosurgeons and also clearly can delineate the consequences he may face if he delays surgery including quadriplegia. I recommended that he have surgery done prior to discharge to avoid worsening cervical cord compression but he declines, explaining that he needs to get his finances in order at home and also research other neurosurgeons and get at least a second opinion. He expresses clear thought process and logical reasoning and while I disagree with his decision, do believe that he is of sound mind to make this decision himself. Attestation: This service has been performed in part by a resident under the direction of a teaching physician.I, Peterson, performed the service, or was physically present during the critical, or maldonado portions of the service, furnished by the resident. I participated in the management of the patient.
--- NOTE | 2020-01-06 18:29 | PN ---
Progress Note - Progress Note Date of Service: 01/05/20 Note: DElayed entry. Patient was seen on the date of note. Patient feels better. Ambulates, Voids. Tolerates po well. Tolerates cervical collar well. Neuro exam stable. AAOx3 ODALYS, CN II-XII grossly intact Motor 4-5/5 except LLE foot DF, EHL 0-1/5 Sensory grossly intact to light touch except decreased sensation bellow mid calf level both LEs MRI brain no acute changes MRI T spine DDD no significant stenosis MRI L spine DDD with moderate stenosis and NF stenosis. Discussed in extend with patient regarding imaging findings and possible treatment options. Patient understands that he may benefit from a posterior cervical decompression and fusion. He understands risks and benefits of different treatment options including possible progression of myelopathy with permanent spinal cord injury and paralysis/. He also understands the importance of timing and the possible implications of delaying surgical treatment including paralysis. Patient reports that he is not ready to proceed with surgery at this point. 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 Patient would like to discuss with his daughter regarding his options. Full instructions were given to the patient. Discussed patient's wishes with team this am. Will be always available if needed. Appreciate , Neurology care Karla Bowens MD
[2020-01-06] MEDS: Metoprolol Succinate XL TAB* 50 MG PO SCH (20:55)
[2020-01-06] MEDS: Atorvastatin* 10 MG TAB PO SCH (20:55)
[2020-01-07] MEDS: Heparin VIAL(*) 5000 UNITS/ML VIAL (FIVE THOUSAND) SUBCUT SCH ×3 (05:52→20:25)
[2020-01-07] MEDS: Multivitamins/Minerals TAB PO SCH (09:26)
[2020-01-07] MEDS: Ascorbic Acid TAB* 500 MG PO SCH (09:26)
[2020-01-07] MEDS: Potassium Chlor TAB* 20 MEQ TAB.ER PO SCH ×2 (09:26→20:22)
[2020-01-07] MEDS: Pantoprazole TAB * 40 MG TAB PO SCH (09:26)
[2020-01-07] MEDS: buPROPion SR TAB.SR* 100 MG PO SCH (09:27)
[2020-01-07] MEDS: Valsartan TAB* 160 MG PO SCH (09:27)
[2020-01-07] MEDS: Magnesium Oxide TAB* 400 MG PO SCH ×2 (09:27→20:23)
[2020-01-07] MEDS: Folic Acid TAB* 1 MG PO SCH (09:27)
--- NOTE | 2020-01-07 18:22 | DS ---
CC: Dr. Roxie Weston * DISCHARGE SUMMARY: DATE OF ADMISSION: 01/01/20 DATE OF DISCHARGE: 01/07/20 PRINCIPAL DISCHARGE DIAGNOSES: 1. 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 2. Ambulatory dysfunction and falls. 3. Thiamine deficiency with history of Wernicke's encephalopathy. 4. [place]drop. SECONDARY DISCHARGE DIAGNOSES: 1. History of alcohol use disorder. 2. Hypertension. 3. Hyperlipidemia. DISCHARGE MEDICATIONS: 1. Ascorbic acid 500 mg daily. 2. Wellbutrin 100 mg daily. 3. Valsartan 160 mg daily. 4. Simvastatin 20 mg q.h.s. 5. [place]-3 fatty acids 1000 mg daily. 6. Toprol-XL 50 mg q.h.s. 7. Omeprazole 20 mg daily. 8. Multivitamin 1 tab daily. 9. Tylenol 650 q.6 p.r.n. pain. 10. Magnesium oxide 800 mg daily. 11. Folic acid 1 mg daily. 12. Melatonin 3 mg q.h.s. p.r.n. insomnia. 13. KCl 20 mEq b.i.d. 14. Thiamine 100 mg daily. PHYSICAL EXAMINATION: Temperature 98.6, heart rate 92, respiratory rate 21, pulse ox 100% on room air, blood pressure 110/71. General: Alert, thin man, in no distress, sitting in the chair. HEENT: Pupils are equal, round, and reactive to light. Oral mucosa is moist. No nystagmus. Neck: A Conger J collar is in place. Chest: He is in a regular rate and rhythm with no murmurs. His lungs are clear bilaterally. Abdomen: Soft, nontender, nondistended. Extremities: No edema, rashes, or ulcers. Neurologic: He is oriented, appropriate, alert. His upper extremity strength is 5/5. His lower extremity strength is 5/5. His patellar deep tendon reflexes are hyperreflexic at 3+. He has increased tone and spasticity of both lower extremities. He has an intention tremor and no asterixis. He has a wide-based gait. PERTINENT STUDIES ON THIS HOSPITALIZATION: A cervical spine MRI on 01/03/20 showed: 1. Degenerative disk disease and osteoarthritis. 2. There is severe narrowing of central canal at C4-C5 and C5-C6 with moderate narrowing at C6-C7 and mild narrowing at C3-C4. There is multilevel neural foraminal narrowing as described above. There is elevated cord signal and volume loss opposite of C4 and C5 consistent with myelomalacia presumably from a compressive myelopathy given the associated spinal stenosis. Brain MRI: Diffuse involutional change. Lumbar spine MRI: Degenerative disk disease and osteoarthritis most pronounced along the lower lumbar spine, moderate narrowing of the central canal at L5-S1 with mild narrowing at L3-L4 and L4-L5. There is multilevel neural foraminal narrowing as described above. A thoracic spine MRI showed hematopoietic conversion of fatty marrow, which can be seen with chronic anemia, chronic illness or in smokers; degenerative disk disease and osteoarthritis without significant neural foraminal narrowing or central canal stenosis. Transthoracic echocardiogram showed systolic function of the LV is normal at 55 % to 60%. Right ventricular systolic function is normal. Mitral valve: Trace regurgitation. CONSULTATIONS DURING THIS HOSPITALIZATION: Dr. Bowens of Neurosurgery and Dr. Reeves of Neurology. HOSPITAL COURSE BY PROBLEM: 1. Severe C-spine central canal stenosis with moderate narrowing and compressive myelopathy. Mr. Kelly was admitted with ambulatory dysfunction and falls and a C- spine MRI was obtained, which showed the findings as above. Dr. Bowens of Neurosurgery was consulted and offered Mr. Kelly urgent surgery. Unfortunately, Mr. Kelly has declined his offer of surgery and is able to clearly delineate the possible consequences of deferring surgery at this time. He would like to be discharged and get a second opinion in [place] and is able to clearly articulate the possible consequences including quadriplegia and expresses clear understanding and thought process in regards to this decision. His daughter is in support of him making this decision. 2. Ambulatory dysfunction with falls. This was thought to be multifactorial and related to problem #1 in addition to thiamine deficiency and history of Wernicke's encephalopathy. He was initially placed on IV thiamine; however, it was felt that this was not consistent with Wernicke's encephalopathy, so he was transitioned to oral thiamine. DISPOSITION: Mr. Kelly is being discharged to home on 01/07/20 after declining our recommendation of neurosurgery. Again, I have strongly recommended that he proceed with surgery on this hospitalization and not delay the surgery. I have expressed my concern that postponing this surgery may lead to worsening cervical cord injury and paralysis. He understands and accepts this risk and does not wish to pursue surgery at this institution. We have recommended short-term rehab; however, it was declined by his insurance company and I offered to do a peer-to- peer appeal; however, Mr. Kelly does not wish to go to short-term rehab at this time and wants to go home where he lives independently. We have arranged home services for him. CONDITION AT THE TIME OF DISCHARGE: Guarded. [id number]/CPS #: [id number] AGUSTO
[2020-01-07] MEDS: Metoprolol Succinate XL TAB* 50 MG PO SCH (20:22)
[2020-01-07] MEDS: Atorvastatin* 10 MG TAB PO SCH (20:23)
[2020-01-08] MEDS: Heparin VIAL(*) 5000 UNITS/ML VIAL (FIVE THOUSAND) SUBCUT SCH (04:52)
[2020-01-08 08:54] VITALS: BP 110/69
[2020-01-08] MEDS: Valsartan TAB* 160 MG PO SCH (09:36)
[2020-01-08] MEDS: buPROPion SR TAB.SR* 100 MG PO SCH (09:36)
[2020-01-08] MEDS: Multivitamins/Minerals TAB PO SCH (09:37)
[2020-01-08] MEDS: Magnesium Oxide TAB* 400 MG PO SCH (09:37)
[2020-01-08] MEDS: Folic Acid TAB* 1 MG PO SCH (09:37)
[2020-01-08] MEDS: Potassium Chlor TAB* 20 MEQ TAB.ER PO SCH (09:37)
[2020-01-08] MEDS: Pantoprazole TAB * 40 MG TAB PO SCH (09:37)
[2020-01-08] MEDS: Ascorbic Acid TAB* 500 MG PO SCH (09:37)
== END 2020-01-08 11:35 | disposition home health service (06) | DRG 347 ==
LOC: ED 12:30 → MED 19:36
PROVIDERS: ADMIT Internal Medicine; ATTEND Internal Medicine
DX: M48.02 Spinal stenosis, cervical region (principal); M47.12 Other spondylosis with myelopathy, cervical region; E51.2 Wernicke's encephalopathy; E51.9 Thiamine deficiency, unspecified; I10 Essential (primary) hypertension; E78.00 Pure hypercholesterolemia, unspecified; K21.9 Gastro-esophageal reflux disease without esophagitis; F41.9 Anxiety disorder, unspecified; E78.5 Hyperlipidemia, unspecified; F32.9 Major depressive disorder, single episode, unspecified; M21.372 Foot drop, left foot; E03.9 Hypothyroidism, unspecified; D64.9 Anemia, unspecified; F10.21 Alcohol dependence, in remission; R29.6 Repeated falls; E83.41 Hypermagnesemia; Z91.81 History of falling; Z87.891 Personal history of nicotine dependence; Z88.8 Allergy status to other drugs, medicaments and biological substances; Z79.899 Other long term (current) drug therapy
CPT/HCPCS: 36415; 70450; 70553; 72146; 72148; 72156; 80048; 80053; 80320; 80329; 82140; 82607; 83735; 83930; 84100; 84425; 84443; 85025; 93306; 96361; 96374; 99283; A9270-GY; A9579; G0480; J1644; J2060; J3411; J3475

== ENCOUNTER 2020-02-10 09:15 | Emergency (ER) | payer BC ==
--- OUTSIDE RECORDS SUMMARY | 2020-02-10 09:25 | XMS REPORT | Continuity of Care Document ---
:1955 External Reference #:[id number] Author Name Caleb Alves M.D. (transmitted by agent of provider Leanne Israel) Address [address] [place] [address] Care Team Providers Name Role Phone Kristian Bailon MD - Care Team Information Property Management Intern [phone] Otolaryngology Sreekanth Livingston MD - Urology Care Team Information Property Management Intern [phone] Mckinley Nieves MD - Orthopaedic Care Team Information Property Management Intern [phone] Surgery Roxie Weston M.D. - Family Medicine Care Team Information Property Management Intern Problems Active Problems Provider Date Mixed hyperlipidemia Fabio Ernst M.D.,FACP Onset: 07/06/2008 Essential tremor Fabio Ernst M.D.,FACP Onset: 07/06/2008 Essential hypertension Dayo Pineda NP Onset: 10/27/2015 Alcohol-induced cerebellar ataxia Fabio Ernst M.D.,FACP Onset: 2017 Chronic alcoholism in remission Fabio Ernst M.D.,FACP Onset: 2017 Ex-smoker Fabio Ernst M.D.,FACP Onset: 2018 Wernicke's disease Jack Martinez M.D. Onset: 02/24/2018 Spinal cord injury without spinal bone Jack Martinez M.D. Onset: 2017 injury Static encephalopathy Jack Martinez M.D. Onset: 02/24/2018 Late effect of intracranial injury Jack Martinez M.D. Onset: 02/24/2018 without skull fracture Idiopathic peripheral neuropathy Jack Martinez M.D. Onset: 03/27/2018 Nondependent alcohol abuse in Jack Martinez M.D. Onset: 03/27/2018 remission Cervical spondylosis with myelopathy Tee Nolasco M.D. Onset: 03/30/2018 Social History Type Date Description Comments Sex Unknown Tobacco Use Start: Unknown End: Former Cigarette Smoker started age 24, quit age 54 for 8 years, then smoked again for one year total 31 years 1 PPD Smoking Status Reviewed: 04/19/19 Former Cigarette Smoker started age 24, quit age 54 for 8 years, then smoked again for one year total 31 years 1 PPD ETOH Use Denies alcohol use ETOH Use consumes 5-6 beers per week Recreational Drug Use Denies Drug Use Tobacco Use Start: Unknown End: Patient is a former quit Oct 2008 Unknown smoker Allergies, Adverse Reactions, Alerts Active Allergies Reaction Severity Comments Date Celexa worse depression 07/06/2008 Lisinopril cough 07/06/2008 HCTZ hyperglycemia 07/06/2008 Medications Active Medications SIG Qnty Indications Ordering Date Provider Shingrix 0.5 milliliters 1units Z00.01 Roxie Weston MD 04/19/2019 50mcg/0.5ML intramuscular now Suspension Rec and 1-2 months later repeat Bupropion Take 1 Tablet By 90tabs Malgorzata Weldon, 03/02/2019 Hydrochloride ER Mouth Every Day M.DHoma (SR) 100mg Tablets ER 12HR Metoprolol Succinate take 1 tablet by 90tabs I10 Abril Garcia, 01/15/2016 ER mouth every day M.DHoma, FACP 50mg Tablets ER 24HR Simvastatin Take 1 Tablet By 90tabs Marisel 09/02/2013 20mg Mouth Every Day In Riaz [place] Tablets The Evening Omeprazole take 1 capsule by 90caps Roxie Weston MD 03/05/2011 20mg mouth every day Capsules DR Palomares take 1 tablet by 90tabs I10 Marisel 03/05/2011 160mg Tablets mouth every day Riaz [place] Fish Oil + D3 1 capsule daily Unknown [id number] Capsules Saw [place] 1 po hs 120caps Unknown 450mg Capsules Centrum Silver Ultra 1 po qd Unknown Mens Tablets Ascorbic Acid 1 by mouth every day Unknown 500mg Tablets Magnesium Oxide 2 tab by mouth every Unknown 400mg day Tablets Immunizations CPT Code Status Date Vaccine Reaction Lot # [id number] Given 04/19/2019 Pneumococcal Conjugate [id number] Vaccine 13 Valent For Intramuscular Use 19014 Given 11/03/2017 Influenza Virus Vaccine, no immedite reaction [id number] Quadrivalent, Split, noted .. hh Preservative Free 84529 Given 12/01/2015 Zoster (Zostavax) [id number] 24637 Given 12/01/2015 Influenza Virus Vaccine, [id number] Quadrivalent, Split, Preservative Free 70517 Given 10/27/2015 Tdap - [id number] Tetanus/Diptheria/Acellular Pertussis [id number] Given 07/10/2012 Fluzone Vaccine [id number] 96802 Given 09/23/2011 Influenza Virus 3Yrs & Over [id number] Vital Signs Date Vital Result Comment 04/19/2019 11:20am Height 65 inches 5'5" Weight 155.00 lb shoes Heart Rate 76 /min BP Systolic 148 mmHg BP Diastolic 89 mmHg Body Temperature 98.6 F O2 % BldC Oximetry 98 % BMI (Body Mass Index) 25.8 kg/m2 05/11/2018 9:06am Height 65 inches 5'5" Weight 150.25 lb Heart Rate 74 /min BP Systolic Sitting 128 mmHg BP Diastolic Sitting 72 mmHg Pain Level 0 BMI (Body Mass Index) 25.0 kg/m2 Results Test Acquired Date Facility Test Result H/L Range Note Laboratory test 01/01/2020 [facility] Ammonia 49 mcmol/L Normal 16-53 finding [address] [place] [address] [phone] Vitamin B1 (Whole Blood) 127 nmol/L 70-180 1 Basic Metabolic 01/01/2020 [facility] Sodium 137 mmol/L Normal 135-145 Panel [address] [place] [address] [phone] Potassium 4.1 mmol/L Normal 3.5-5.0 Chloride 104 mmol/L Normal 101-111 Co2 Carbon Dioxide 20 mmol/L Low 22-32 Anion Gap 13 mmol/L High 2-11 Glucose 83 mg/dL Normal 70-100 Blood Urea Nitrogen 12 mg/dL Normal 6-24 Creatinine 0.68 mg/dL Normal 0.67-1.17 BUN/Creatinine Ratio 17.6 Normal 8-20 Calcium 7.9 mg/dL Low 8.6-10.3 Egfr Non- 117.0 >60 Egfr 141.6 >60 2 CBC Auto 01/01/2020 [facility] White Blood 11.4 10^3/uL High 3.5-10.[address] [place] [address] [phone] Red Blood Count 3.89 10^6/uL Low 4.18-5.48 Hemoglobin 13.5 g/dL Low 14.0-18.0 Hematocrit 40 % Low 42-52 Mean Corpuscular Volume 102 fL High 80-94 Mean Corpuscular Hemoglobin 35 pg High 27-31 Mean Corpuscular HGB Conc 34 g/dL Normal 31-36 Red Cell Distribution Width 14 % Normal 10-15 Platelet Count 257 10^3/uL Normal 150-450 Mean Platelet Volume 6.7 fL Low 7.4-10.4 Abs Neutrophils 10.4 10^3/uL High 1.5-7.7 Abs Lymphocytes 0.5 10^3/uL Low 1.0-4.8 Abs Monocytes 0.5 10^3/uL Normal 0-0.8 Abs Eosinophils 0.0 10^3/uL Normal 0-0.6 Abs Basophils 0.0 10^3/uL Normal 0-0.2 Abs Nucleated RBC 0.0 10^3/uL Granulocyte % 90.9 % Lymphocyte % 4.4 % Monocyte % 4.5 % Eosinophil % 0.0 % Basophil % 0.2 % Nucleated Red Blood Cells % 0.0 Comp Metabolic 01/01/2020 [facility] Sodium 138 mmol/L Normal 135-[address] [place] [address] [phone] Potassium 3.9 mmol/L Normal 3.5-5.0 Chloride 99 mmol/L Low 101-111 Co2 Carbon Dioxide 20 mmol/L Low 22-32 Anion Gap 19 mmol/L High 2-11 Glucose 127 mg/dL High 70-100 Blood Urea Nitrogen 12 mg/dL Normal 6-24 Creatinine 0.76 mg/dL Normal 0.67-1.17 BUN/Creatinine Ratio 15.8 Normal 8-20 Calcium 8.7 mg/dL Normal 8.6-10.3 Total Protein 6.8 g/dL Normal 6.4-8.9 Albumin 3.7 g/dL Normal 3.2-5.2 Globulin 3.1 g/dL Normal 2-4 Albumin/Globulin Ratio 1.2 Normal 1-3 Total Bilirubin 0.90 mg/dL Normal 0.2-1.0 Alkaline Phosphatase 105 U/L High 34-104 Alt 35 U/L Normal 7-52 Ast 59 U/L High 13-39 Egfr Non- 102.9 >60 Egfr 124.6 >60 3 Laboratory test 01/01/2020 [facility] Alcohol < 10 mg/dL Normal <10 finding [address] [place] [address] [phone] TSH (Thyroid Stim Horm) 0.54 mcIU/mL Normal 0.34-5.60 Acetaminophen < 15 g/mL 4 Salicylate < 2.50 mg/dL <30 Osmolality Serum 294 mOsm/kg Normal 275-295 1 ADDITIONAL INFORMATION This test was developed and its performance characteristics determined by [facility] in a manner consistent with CLIA requirements. This test has not been cleared or approved by the U.S. Food and Drug Administration. Test Performed by: [facility] [address] [place] [address] Microbiology Soil Scientist: Julien Colin M.D. Ph.D.; CLIA# [id number] 2 Because ethnic data is not always readily available, this report includes an eGFR for both -Americans and non- Americans. The National Kidney Disease Education Program (NKDEP) does not endorse the use of the MDRD equation for patients that are not between the ages of 18 and 70, are , have extremes of body size, muscle mass, or nutritional status, or are non- or non-. According to the National Kidney Foundation, irrespective of diagnosis, the stage of the disease is based on the level of kidney function: Stage Description GFR(mL/min/1.73 m(2)) 1 Kidney damage with normal or decreased GFR 90 2 Kidney damage with mild decrease in GFR 60-89 3 Moderate decrease in GFR 30-59 4 Severe decrease in GFR 15-29 5 Kidney failure <15 (or dialysis) 3 Because ethnic data is not always readily available, this report includes an eGFR for both -Americans and non- Americans. The National Kidney Disease Education Program (NKDEP) does not endorse the use of the MDRD equation for patients that are not between the ages of 18 and 70, are , have extremes of body size, muscle mass, or nutritional status, or are non- or non-. According to the National Kidney Foundation, irrespective of diagnosis, the stage of the disease is based on the level of kidney function: Stage Description GFR(mL/min/1.73 m(2)) 1 Kidney damage with normal or decreased GFR 90 2 Kidney damage with mild decrease in GFR 60-89 3 Moderate decrease in GFR 30-59 4 Severe decrease in GFR 15-29 5 Kidney failure <15 (or dialysis) 4 Therapeutic concentration: <50 ug/mL Toxic concentration: >120 ug/mL Procedures Date Code Description Status 01/05/2020 54314 ECHO Transthorasic Realtime 2D W Doppler & Color Flow Completed Hosp 03/11/2018 561115385 Diabetic Retinal Eye Exam Completed 03/06/2017 [id number] Colonoscopy Completed 08/20/2006 [id number] Colonoscopy Completed Medical Devices Description No Information Available Encounters Type Date Location Provider Dx Diagnosis Office Visit 01/06/2020 [facility] Winter Winkler, M48.02 Spinal stenosis, 2:06p lois Olsen DO cervical region Hospitalists R26.0 Ataxic gait Office Visit 01/05/2020 2:06p [facility] Honey M48.02 Spinal Assoclois PA-C stenosis, Hospitalists cervical region R26.0 Ataxic gait E83.42 Hypomagnesemia Office Visit 01/04/2020 [facility] M48.02 Spinal 2:05p lois Olsen M.D. stenosis, Hospitalists cervical region M50.021 Cervical disc disorder at C4-C5 level with myelopathy R26.0 Ataxic gait I10 Essential (primary) hypertension Office Visit 01/03/2020 [facility] M48.02 Spinal 2:05p Assoc,lois Alves M.D. stenosis, Hospitalists cervical region R26.0 Ataxic gait F10.21 Alcohol dependence, in remission I10 Essential (primary) hypertension Office Visit 01/02/2020 2:04p [facility] Caleb R26.0 Ataxic gait Assoc,lois Alves M.D. Hospitalists R53.1 Weakness R25.1 Tremor, unspecified I10 Essential (primary) hypertension Office Visit 01/01/2020 2:03p [facility] Susan Clement, R29.6 Repeated falls Assoc,pc N.P. Hospitalists R26.0 Ataxic gait Assessments Date Code Description Provider 01/07/2020 M48.02 Spinal stenosis, cervical region Winter Senner, DO 01/07/2020 M50.021 Cervical disc disorder at C4-C5 level Winter Winkler, DO with myelopathy 01/07/2020 R26.0 Ataxic gait Winter Senner, DO 01/07/2020 R29.6 Repeated falls Winter Senner, DO 01/06/2020 M48.02 Spinal stenosis, cervical region Winter Senner, DO 01/06/2020 R26.0 Ataxic gait Winter Senner, DO 01/05/2020 M48.02 Spinal stenosis, cervical region Honey Nowak PA-C 01/05/2020 I10 Essential (primary) hypertension Mita Ashley M.D. 01/05/2020 R26.0 Ataxic gait Honey Nowak PA-C 01/05/2020 E83.42 Hypomagnesemia Honey Nowak PA-C 01/04/2020 M48.02 Spinal stenosis, cervical region Caleb Alves M.D. 01/04/2020 M50.021 Cervical disc disorder at C4-C5 level Caleb Alves M.D. with myelopathy 01/04/2020 R26.0 Ataxic gait Caleb Alves M.D. 01/04/2020 I10 Essential (primary) hypertension Caleb Alves M.D. 01/03/2020 M48.02 Spinal stenosis, cervical region Caleb Alves M.D. 01/03/2020 R26.0 Ataxic gait Caleb Alves M.D. 01/03/2020 F10.21 Alcohol dependence, in remission Caleb Alves M.D. 01/03/2020 I10 Essential (primary) hypertension Caleb Alves M.D. 01/02/2020 R26.0 Ataxic gait Caleb Alves M.D. 01/02/2020 R53.1 Weakness Caleb Alves M.D. 01/02/2020 R25.1 Tremor, unspecified Caleb Alves M.D. 01/02/2020 I10 Essential (primary) hypertension Caleb Alves M.D. 01/01/2020 R29.6 Repeated falls Susan Vaughan, N.P. 01/01/2020 R26.0 Ataxic gait Susan Vaughan, N.P. Plan of Treatment 03/27/2018 - Jack Martinez M.D.G60.8 Other hereditary and idiopathic neuropathiesFollow up:Follow up 1 week after NS ldfhqcmtukvG77.11 Alcohol abuse , in [id number] Traumatic subdural hemorrhage with loss of consciousness of unspecified duration, gsafcgmD02.2 Degeneration of nervous system due to kqjxwkeS06.129D Central cord syndrome at unspecified level of cervical spinal cord, subsequent encounterReferral:Tee Nolasco M.D., Surgery, NgzdfkqwmiytK83.2 Paresthesia of skin Functional Status Description No Information Available Mental Status Description No Information Available Referrals Description No Information Available
--- OUTSIDE RECORDS SUMMARY | 2020-02-10 09:25 | XMS REPORT ---
:1955 Author Organization [facility] Care Team Providers Name Role Phone Unavailable Unavailable Unavailable Problems Condition Condition Condition Status Onset Resolution Last Treating Comments Name Details Category Date Date Treatment Clinician Date Ataxia, Ataxia, Diagnosis Active Sindhu unspecified unspecified 01-16 Malnoske RN Wernicke's Wernicke's Diagnosis Active Sindhu encephalopa encephalopa 01-16 Malnoske thy thy RN Alcohol Alcohol Diagnosis Active Sindhu dependence dependence 01-16 Malnoske with with RN withdrawal, withdrawal, unspecified unspecified Anxiety Anxiety Diagnosis Active Sindhu disorder, disorder, 01-16 Malnoske unspecified unspecified RN Traumatic Traumatic Diagnosis Active Sindhu spondylopat spondylopat 01-16 Malnoske hy, hy, RN cervical cervical region region Fracture of Fracture of Diagnosis Active Sindhu nasal nasal 01-16 Malnoske bones, subs bones, subs RN for fx w for fx w routn heal routn heal Fracture of Fracture of Diagnosis Active Sindhu orbital orbital Malnoske floor, floor, RN unspecified unspecified side, 7thD side, 7thD Traum subdr Traum subdr Diagnosis Active Sindhu hem w/o hem w/o Malnoske loss of loss of RN consciousne consciousne ss, subs ss, subs Fall (on) Fall (on) Diagnosis Active Sindhu (from) (from) Malnoske other other RN stairs and stairs and steps, subs steps, subs encntr encntr Neuro anxiety Neuro/Emot Active Citlalli present ion 3-30 (Elisa) 10:45: Darci [id number] Neuro depressive Neuro/Emot Active Citlalli feelings ion 3-30 (Elisa) present 10:45: Darci [id number] Medication potential Meds Active Citlalli clinically 3-30 (Elisa) significant 10:45: Darci medication 00 [id number] issue Safety fall risk Safety Active Kenan factor - Thang present 14:45: [id number] Safety risk for Safety Active Kenan hospitaliza 01-19 Thang tion 14:45: [id number] Gait/Locomo stair PT/OT: Active Kenan tion management Gait/Locom 01-19 Thang problems req otion 14:45: [id number] Allergies, Adverse Reactions, Alerts Allergy Name Allergy Status Severity Reaction(s) Onset Inactive Treating Comments Type Date Date Clinician citalopram Unknown Active Unknown Reaction Citlalli Unknown 3-30 (Elisa) Darci [id number] hydrochlorithia Unknown Active Unknown Reaction Citlalli zide Unknown 3-30 (Elisa) Darci [id number] lisinopril Unknown Active Unknown Reaction Citlalli Unknown 3-30 (Elisa) Darci [id number] Medications Ordered Filled Start Stop Current Ordering Indication Dosage Frequency Signature Comments Components Medication Medication Date Date Medication? Clinician (SIG) Name Name nicotine 21 nicotine 21 2017- No Montgomery 1 patch Unknown mg/24 hr mg/24 hr 01-16 Donnie OKEEFE daily daily Foreign transdermal transdermal patch patch multivitami multivitami 2017- No [place] 1 Unknown n capsule n capsule 01-16 Donnie OKEEFE valsartan valsartan 2017- No [place] 160 mg Unknown 160 mg 160 mg 01-16 Donnie OKEEFE tablet tablet Foreign buPROPion buPROPion 2017- No [place] 100 mg Unknown HCL SR 100 HCL SR 100 01-16 Donnie OKEEFE mg mg Foreign tablet,12 tablet,12 hr hr sustained-r sustained-r elease elease ascorbic ascorbic 2017- No Montgomery 500 mg Unknown acid acid 01-16 Donnie OKEEFE (vitamin C) (vitamin C) Foreign 500 mg 500 mg capsule capsule omeprazole omeprazole 2017- No [place] 20 mg Unknown 20 mg 20 mg 01-16 Donnie OKEEFE tablet,johann tablet,johann Foreign yed release yed release omega omega 2017- No [place] 1000 mg Unknown 3-dha-epa-f 3-dha-epa-f 01-16 ,Donnie jennifer oil jennifer oil Foreign 1,000 mg 1,000 mg (120 mg-180 (120 mg-180 mg) capsule mg) capsule saw saw 2017- No Montgomery 450 mg Unknown palmetto palmetto 01-16 ,Dnonie fruit 450 fruit 450 Foreign mg capsule mg capsule metoprolol metoprolol 2017- No [place] 50 mg Unknown succinate succinate 01-16 ,Donnie ER 50 mg ER 50 mg Foreign tablet,exte tablet,exte nded nded release 24 release 24 hr hr simvastatin simvastatin 2017- No [place] 20 mg Unknown 20 mg 20 mg 01-16 ,Donnie tablet tablet Foreign ibuprofen ibuprofen 2017- No [place] 400 mg Unknown 200 mg 200 mg 01-16 ,Donnie tablet tablet Foreign Chlorasepti Chlorasepti 2017- No [place] 1 Unknown c Total 5 c Total 5 01-16 ,Donnie mg-6 mg-10 mg-6 mg-10 Foreign mg lozenges mg lozenges Vital Signs Vital Name Observation Time Observation Value Comments SYSTOLIC mm[Hg] 2018-01-19 17:59:00 130 mm[Hg] mm[Hg] Method: Sit SYSTOLIC mm[Hg] 2018-01-16 17:58:57 106 mm[Hg] mm[Hg] Method: Stand DIASTOLIC mm[Hg] 2018-01-19 17:59:00 80 mm[Hg] mm[Hg] Method: Sit DIASTOLIC mm[Hg] 2018-01-16 17:58:57 70 mm[Hg] mm[Hg] Method: Stand PULSE 2018-01-19 17:59:00 72 /min /min RESP RATE 2018-01-16 17:58:57 17 /min /min TEMP 2018-01-16 17:58:57 97.9 [degF] Procedures This patient has no known procedures. Results This patient has no known results.
--- OUTSIDE RECORDS SUMMARY | 2020-02-10 09:25 | XMS REPORT ---
:1955 Author Organization [facility] Care Team Providers Name Role Phone Unavailable Unavailable Unavailable Problems Condition Condition Condition Status Onset Resolution Last Treating Comments Name Details Category Date Date Treatment Clinician Date Wernicke's Wernicke's Diagnosis Active Qamar encephalopa encephalopa 3-23 Anguish thy thy [id number] Unspecified Unspecified Diagnosis Active Qamar cord cord 3-23 Anguish compression compression [id number] Neuro anxiety Neuro/Emot Active Citlalli present ion 3-24 (Elisa) 09:30: Bejarano 00 [id number] Neuro depressive Neuro/Emot Active Citlalli feelings ion 3-24 (Elisa) present 09:30: Bejarano 00 [id number] Allergies, Adverse Reactions, Alerts Allergy Name Allergy Status Severity Reaction(s) Onset Inactive Treating Comments Type Date Date Clinician citalopram Unknown Active Unknown Reaction Citlalli Unknown 3-30 (Elisa) Darci [id number] hydrochlorithia Unknown Active Unknown Reaction Citlalli zide Unknown 3-30 (Elisa) Darci [id number] lisinopril Unknown Active Unknown Reaction Citlalli Unknown 3-30 (Leisa) Darci [id number] Medications Ordered Filled Start Stop Current Ordering Indication Dosage Frequency Signature Comments Components Medication Medication Date Date Medication? Clinician (SIG) Name Name multivitami multivitami Yes Pal Unknown Unknown n capsule n capsule 3-24 Ena OKEEFE valsartan valsartan 2019-0 Yes Apl Unknown Unknown 160 mg 160 mg 3-24 Ena OKEEFE tablet tablet buPROPion buPROPion 2019-0 Yes Pal Unknown Unknown HCL SR 100 HCL SR 100 3-24 Ena OKEEFE mg mg tablet,12 tablet,12 hr hr sustained-r sustained-r elease elease ascorbic ascorbic 2019-0 Yes Pal Unknown Unknown acid acid 3-24 Ena OKEEFE (vitamin C) (vitamin C) 500 mg 500 mg capsule capsule omeprazole omeprazole 2019-0 Yes Pal Unknown Unknown 20 mg 20 mg 3-24 MD,Ena tablet,johann tablet,johann yed release yed release omega omega 2020-0 Yes Pal Unknown Unknown 3-dha-epa-f 3-dha-epa-f 3-24 MD,Ena jennifer oil jennifer oil 1,000 mg 1,000 mg (120 mg-180 (120 mg-180 mg) capsule mg) capsule metoprolol metoprolol 2019-0 Yes Pal Unknown Unknown succinate succinate 3-24 MD,Ena ER 50 mg ER 50 mg tablet,exte tablet,exte nded nded release 24 release 24 hr hr simvastatin simvastatin 2019-0 Yes Pal Unknown Unknown 20 mg 20 mg 3-24 MD,Ena tablet tablet Vital Signs Vital Name Observation Time Observation Value Comments SYSTOLIC mm[Hg] 2020-01-13 18:11:04 128 mm[Hg] mm[Hg] Method: Sit DIASTOLIC mm[Hg] 2020-01-13 18:11:04 64 mm[Hg] mm[Hg] Method: Sit PULSE 2020-01-13 18:11:04 87 /min /min RESP RATE 2020-01-13 18:11:04 15 /min /min TEMP 2020-01-13 18:11:04 98.9 [degF] Procedures This patient has no known procedures. Results This patient has no known results.
--- OUTSIDE RECORDS SUMMARY | 2020-02-10 09:25 | XMS REPORT | Continuity of Care Document ---
:1955 External Reference #:[id number] Author Name Winter Winkler DO (transmitted by agent of provider January) Address [address] [place] [address] Care Team Providers Name Role Phone Kristian Bailon MD - Care Team Information [place] [phone] Otolaryngology Sreekanth Livingston MD - Urology Care Team Information [place] [phone] Mckinley Nieves MD - Orthopaedic Care Team Information [place] Surgery Roxie Weston M.D. - Family Medicine Care Team Information [place] Problems Active Problems Provider Date Mixed hyperlipidemia [...] Weldon, 03/02/2019 Hydrochloride ER Mouth Every Day M.D. (SR) 100mg Tablets ER 12HR Metoprolol Succinate take 1 tablet by 90tabs I10 Abril Garcia, 01/15/2016 ER mouth every day M.D., FACP 50mg Tablets ER 24HR Simvastatin Take 1 Tablet By 90tabs Marisel 09/02/2013 20mg Mouth Every Day In [place] Tablets The Evening Omeprazole take 1 capsule by 90caps Roxie Weston MD 03/05/2011 20mg mouth every day Capsules DR Palomares take 1 tablet by 90tabs I10 Marisel 03/05/2011 160mg Tablets mouth every day [place] Fish Oil + D3 1 capsule daily Unknown [id number] Capsules [place] 1 po hs 120caps Unknown 450mg Capsules Centrum Silver Ultra 1 po qd Unknown Mens Tablets Ascorbic Acid 1 by mouth every day Unknown 500mg Tablets Magnesium Oxide 2 tab by mouth every Unknown 400mg day Tablets Immunizations CPT Code Status Date Vaccine Reaction Lot # [id number] Given 04/19/2019 Pneumococcal Conjugate 525np Vaccine 13 Valent For Intramuscular Use 40921 Given 11/03/2017 Influenza Virus Vaccine, no immedite reaction [id number] Quadrivalent, Split, noted .. hh Preservative Free 67976 Given 12/01/2015 Zoster (Zostavax) [id number] 39868 Given 12/01/2015 Influenza Virus Vaccine, [id number] Quadrivalent, Split, Preservative Free 21714 Given 10/27/2015 Tdap - [id number] Tetanus/Diptheria/Acellular Pertussis [id number] Given 07/10/2012 Fluzone Vaccine [id number] 62604 Given 09/23/2011 Influenza Virus 3Yrs & Over [id number] Vital Signs Date Vital Result Comment 04/19/2019 [...] Result H/L Range Note Laboratory test 01/01/2020 [facility] Ammonia 49 mcmol/L Normal 16-53 finding [address] [place] [address] [phone] Vitamin B1 (Whole Blood) 127 nmol/L 70-180 1 Basic Metabolic 01/01/2020 [facility] Sodium 137 mmol/L Normal 135-145 Panel [address] [place] [address] [phone] Potassium 4.1 mmol/L Normal 3.5-5.0 Chloride 104 mmol/L Normal 101-111 Co2 Carbon Dioxide 20 mmol/L Low 22-32 Anion Gap 13 mmol/L High 2-11 Glucose 83 mg/dL Normal 70-100 Blood Urea Nitrogen 12 mg/dL Normal 6-24 Creatinine 0.68 mg/dL Normal 0.67-1.17 BUN/Creatinine Ratio 17.6 Normal 8-20 Calcium 7.9 mg/dL Low 8.6-10.3 Egfr Non- 117.0 >60 Egfr 141.6 >60 2 CBC Auto 01/01/2020 [facility] White Blood 11.4 10^3/uL High 3.5-10.[address] [place] [address] [phone] Red Blood Count 3.89 10^6/uL Low 4.18-5.48 [...] Blood Cells % 0.0 Comp Metabolic 01/01/2020 [facility] Sodium 138 mmol/L Normal 135-[address] [place] [address] [phone] Potassium 3.9 mmol/L Normal 3.5-5.0 Chloride 99 [...] Egfr 124.6 >60 3 Laboratory test 01/01/2020 [facility] Alcohol < 10 mg/dL Normal <10 finding [address] [place] [address] [phone] TSH (Thyroid Stim Horm) 0.54 mcIU/mL Normal 0.34-5.60 Acetaminophen < 15 g/mL 4 Salicylate < 2.50 mg/dL <30 Osmolality Serum 294 mOsm/kg Normal 275-295 1 ADDITIONAL INFORMATION This test was developed and its performance characteristics determined by [facility] in a manner consistent with CLIA requirements. This test has not been cleared or approved by the U.S. Food and Drug Administration. Test Performed by: [facility] [address] [place] [address] Bookbinder Chief: Julien Colin M.D. Ph.D.; CLIA# [id number] 2 Because ethnic data is not always [...] ug/mL Procedures Date Code Description Status 01/05/2020 96085 ECHO Transthorasic Realtime 2D W Doppler & Color Flow Completed Hosp 03/11/2018 [id number] Diabetic Retinal Eye Exam Completed 03/06/2017 98723610 Colonoscopy Completed 08/20/2006 [id number] Colonoscopy Completed Medical Devices Description No Information Available Encounters Type Date Location Provider Dx Diagnosis Office Visit 01/19/2020 [facility] Tanvir Velasquez, M48.02 Spinal stenosis, 10:00a Medicine - Deneen Mello cervical region I10 Essential (primary) hypertension F10.21 Alcohol dependence, in remission Office Visit 01/07/2020 2:07p [facility] Winter M48.02 Spinal Assoc,lois Winkler, DO stenosis, Hospitalists cervical region M50.021 Cervical disc disorder at C4-C5 level with myelopathy R26.0 Ataxic gait R29.6 Repeated falls Office Visit 01/06/2020 2:06p [facility] Winter M48.02 Spinal Assoc,lois Winkler DO stenosis, Hospitalists cervical region R26.0 Ataxic gait Office Visit 01/05/2020 2:06p [facility] Honey M48.02 Spinal Assoc,lois Nowak PA-C stenosis, Hospitalists cervical region R26.0 Ataxic gait E83.42 Hypomagnesemia Office Visit 01/04/2020 [facility] M48.02 Spinal 2:05p Asslois gomez M.D. stenosis, Hospitalists cervical region M50.021 Cervical disc disorder at C4-C5 level with myelopathy R26.0 Ataxic gait I10 Essential (primary) hypertension Office Visit 01/03/2020 [facility] M48.02 Spinal 2:05p Asslois gomez M.D. stenosis, Hospitalists cervical region R26.0 Ataxic gait F10.21 Alcohol dependence, in remission I10 Essential (primary) hypertension Office Visit 01/02/2020 2:04p [facility] R26.0 Ataxic gait Assoc,lois Avles M.D. Hospitalists R53.1 Weakness R25.1 Tremor, unspecified I10 Essential (primary) hypertension Office Visit 01/01/2020 2:03p [facility] Susan Vaughan, R29.6 Repeated falls Assoc,lois N.PHoma Hospitalists R26.0 Ataxic gait Assessments Date Code Description Provider 01/19/2020 M48.02 Spinal stenosis, cervical region Tanvir Velasquez M.D. 01/19/2020 I10 Essential (primary) hypertension Tanvir Velasquez M.D. 01/19/2020 F10.21 Alcohol dependence, in remission Tanvir Velasquez M.D. 01/07/2020 M48.02 Spinal stenosis, cervical region Winter Senner, DO 01/07/2020 M50.021 Cervical disc disorder at C4-C5 level Winter Senner, DO with myelopathy 01/07/2020 R26.0 Ataxic gait [...] gait Susan Vaughan, N.P. Plan of Treatment 01/19/2020 - Tanvir Velasquez M.D.M48.02 Spinal stenosis, cervical regionComments:Increased weakness and tingling symptoms prompting his recent admission. Neurosurgical evaluation resulted in a recommendation for cervical spine surgery for his severe spinal canal stenosis. Patientdeclined surgical intervention at that time and is interested in getting a second opinion. No acutechanges noted but patient advised to proceed with the second opinion as soon as possible given the serious findings on his scan. Patient also advised to contact [facility] radiology to get a copy of his MRI scans on disc for his planned neurosurgical consult.I10 Essential (primary) hypertensionComments:No BP problems in the hospital per patient. Occasional home blood pressure checks advised.F10.21 Alcohol dependence, in remissionComments:(+) Past history of alcohol abuse with ? encephalopathy in 2018. Patient denies heavy intake now but admits he is still drinking daily. Functional Status Description No Information Available Mental Status Description No Information Available Referrals Description No Information Available
--- OUTSIDE RECORDS SUMMARY | 2020-02-10 09:25 | XMS REPORT | Continuity of Care Document ---
:1955 External Reference #:[id number] Author Name Tanvir Velasquez M.D. Address [address], [place] [address] Care Team Providers Name Role Phone Kristian Bailon MD - Care Team Information Associate Product Manager [phone] Otolaryngology Sreekanth Livingston MD - Urology Care Team Information Associate Product Manager [phone] Mckinley Nieves MD - Orthopaedic Care Team Information Associate Product Manager Surgery Roxie Weston M.D. - Family Medicine Care Team Information Associate Product Manager Problems Active Problems Provider Date Mixed hyperlipidemia [...] Oil + D3 1 capsule daily Unknown [id number] Capsules Saw [place] 1 po hs 120caps Unknown 450mg Capsules Centrum Silver Ultra 1 po qd Unknown Mens Tablets Ascorbic Acid 1 by mouth every day Unknown 500mg Tablets Magnesium Oxide 2 tab by mouth every Unknown 400mg day Tablets Immunizations CPT Code Status Date Vaccine Reaction Lot # [id number] Given 04/19/2019 Pneumococcal Conjugate 525np Vaccine 13 Valent For Intramuscular Use 63399 Given 11/03/2017 Influenza Virus Vaccine, no immedite reaction [id number] Quadrivalent, Split, noted .. hh Preservative Free 45060 Given 12/01/2015 Zoster (Zostavax) [id number] 40693 Given 12/01/2015 Influenza Virus Vaccine, [id number] Quadrivalent, Split, Preservative Free 47681 Given 10/27/2015 Tdap - [id number] Tetanus/Diptheria/Acellular Pertussis Q2038 Given 07/10/2012 Fluzone Vaccine [id number] 67986 Given 09/23/2011 Influenza Virus 3Yrs & Over [id number] Vital Signs Date Vital Result Comment 04/19/2019 [...] Result H/L Range Note Laboratory test 01/01/2020 [facility] Ammonia 49 mcmol/L Normal 16-53 finding [address] [place] [address] [phone] Vitamin B1 (Whole Blood) 127 nmol/L 70-180 1 Basic Metabolic 01/01/2020 [facility] Sodium 137 mmol/L Normal 135-145 Panel [address] [place] [address] [phone] Potassium 4.1 mmol/L Normal 3.5-5.0 Chloride 104 mmol/L Normal 101-111 Co2 Carbon Dioxide 20 mmol/L Low 22-32 Anion Gap 13 mmol/L High 2-11 Glucose 83 mg/dL Normal 70-100 Blood Urea Nitrogen 12 mg/dL Normal 6-24 Creatinine 0.68 mg/dL Normal 0.67-1.17 BUN/Creatinine Ratio 17.6 Normal 8-20 Calcium 7.9 mg/dL Low 8.6-10.3 Egfr Non- 117.0 >60 Egfr 141.6 >60 2 CBC Auto 01/01/2020 [facility] White Blood 11.4 10^3/uL High 3.5-10.[address] [place] [address] [phone] Red Blood Count 3.89 10^6/uL Low 4.18-5.48 [...] Blood Cells % 0.0 Comp Metabolic 01/01/2020 [facility] Sodium 138 mmol/L Normal 135-[address] [place] [address] [phone] Potassium 3.9 mmol/L Normal 3.5-5.0 Chloride 99 [...] Egfr 124.6 >60 3 Laboratory test 01/01/2020 [facility] Alcohol < 10 mg/dL Normal <10 finding [address] [place] [address] [phone] TSH (Thyroid Stim Horm) 0.54 mcIU/mL Normal 0.34-5.60 Acetaminophen < 15 g/mL 4 Salicylate < 2.50 mg/dL <30 Osmolality Serum 294 mOsm/kg Normal 275-295 1 ADDITIONAL INFORMATION This test was developed and its performance characteristics determined by [facility] in a manner consistent with CLIA requirements. This test has not been cleared or approved by the U.S. Food and Drug Administration. Test Performed by: [facility] [address] [place] [address] Dermatology Physician: Julien Colin M.D. Ph.D.; CLIA# [id number] 2 Because ethnic data is not always [...] ug/mL Procedures Date Code Description Status 01/05/2020 50996 ECHO Transthorasic Realtime 2D W Doppler & Color Flow Completed Hosp 03/11/2018 487231215 Diabetic Retinal Eye Exam Completed 03/06/2017 04403553 Colonoscopy Completed 08/20/2006 [id number] Colonoscopy Completed Medical Devices Description No Information Available Encounters Type Date Location Provider Dx Diagnosis Office Visit 01/06/2020 [facility] Winter Winkler, M48.02 Spinal stenosis, 2:06p lois Olsen DO cervical region Hospitalists R26.0 Ataxic gait Office Visit 01/05/2020 2:06p [facility] Honey M48.02 Spinal Assoc,lois Nowak PA-C stenosis, Hospitalists cervical region R26.0 Ataxic gait E83.42 Hypomagnesemia [facility] 2:05p lois Olsen M.D. stenosis, Hospitalists cervical region M50.021 Cervical disc disorder at C4-C5 level with myelopathy R26.0 Ataxic gait I10 Essential (primary) hypertension [facility] 2:05p lois Olsen M.D. stenosis, Hospitalists cervical region R26.0 Ataxic gait F10.21 Alcohol dependence, in remission I10 Essential (primary) hypertension Office Visit 01/02/2020 2:04p [facility] Caleb R26.0 Ataxic gait Assoc,lois Alves M.D. Hospitalists R53.1 Weakness R25.1 Tremor, unspecified I10 Essential (primary) hypertension Office Visit 01/01/2020 2:03p [facility] Susan Vaughan, R29.6 Repeated falls Assoc,pc N.P. Hospitalists R26.0 Ataxic gait Assessments Date Code Description Provider 01/19/2020 M48.02 Spinal stenosis, cervical region Tanvir Velasquez M.D. 01/19/2020 I10 Essential (primary) hypertension Tanvir Velasquez M.D. 01/19/2020 F10.21 Alcohol dependence, in remission Tanvir Velasquez M.D. 01/07/2020 M48.02 Spinal stenosis, cervical region Winter Senner, DO 01/07/2020 M50.021 Cervical disc disorder at C4-C5 level Winter Geovaniner, DO with myelopathy 01/07/2020 R26.0 Ataxic gait [...] gait Susan Vaughan, N.P. Plan of Treatment No Information Available Functional Status Description No Information Available Mental Status Description No Information Available Referrals Description No Information Available
--- OUTSIDE RECORDS SUMMARY | 2020-02-10 09:25 | XMS REPORT | Continuity of Care Document ---
:1955 External Reference #:[id number] Author Name Loli Bowens MD (transmitted by agent of provider January) Address [address] , [place] [address] Care Team Providers Name Role Phone Kristian Bailon MD - Care Team Information [place] Sm[place] [phone] Otolaryngology Sreekanth Livingston MD - Urology Care Team Information [place] Smoker [phone] Mckinley Nieves MD - Orthopaedic Care Team Information [place] Sm[place] Surgery Roxie Weston M.D. - Family Medicine Care Team Information [place] Smoker [phone] Problems Active Problems Provider Date Mixed hyperlipidemia [...] Oil + D3 1 capsule daily Unknown [id number] Capsules Saw [place] 1 po hs 120caps Unknown 450mg Capsules Centrum Silver Ultra 1 po qd Unknown Mens Tablets Ascorbic Acid 1 by mouth every day Unknown 500mg Tablets Magnesium Oxide 2 tab by mouth every Unknown 400mg day Tablets Immunizations CPT Code Status Date Vaccine Reaction Lot # [id number] Given 04/19/2019 Pneumococcal Conjugate 525np Vaccine 13 Valent For Intramuscular Use 72648 Given 11/03/2017 Influenza Virus Vaccine, no immedite reaction [id number] Quadrivalent, Split, noted .. hh Preservative Free 34441 Given 12/01/2015 Zoster (Zostavax) [id number] 52064 Given 12/01/2015 Influenza Virus Vaccine, [id number] Quadrivalent, Split, Preservative Free 29069 Given 10/27/2015 Tdap - [id number] Tetanus/Diptheria/Acellular Pertussis Q2038 Given 07/10/2012 Fluzone Vaccine [id number] 79441 Given 09/23/2011 Influenza Virus 3Yrs & Over [id number] Vital Signs Date Vital Result Comment 04/19/2019 [...] Result H/L Range Note Laboratory test 01/01/2020 [facility] Ammonia 49 mcmol/L Normal 16-53 finding [address] [place] [address] [phone] Vitamin B1 (Whole Blood) 127 nmol/L 70-180 1 Basic Metabolic 01/01/2020 [facility] Sodium 137 mmol/L Normal 135-145 Panel [address] [place] [address] [phone] Potassium 4.1 mmol/L Normal 3.5-5.0 Chloride 104 mmol/L Normal 101-111 Co2 Carbon Dioxide 20 mmol/L Low 22-32 Anion Gap 13 mmol/L High 2-11 Glucose 83 mg/dL Normal 70-100 Blood Urea Nitrogen 12 mg/dL Normal 6-24 Creatinine 0.68 mg/dL Normal 0.67-1.17 BUN/Creatinine Ratio 17.6 Normal 8-20 Calcium 7.9 mg/dL Low 8.6-10.3 Egfr Non- 117.0 >60 Egfr 141.6 >60 2 CBC Auto 01/01/2020 [facility] White Blood 11.4 10^3/uL High 3.5-10.[address] [place] [address] [phone] Red Blood Count 3.89 10^6/uL Low 4.18-5.48 [...] Blood Cells % 0.0 Comp Metabolic 01/01/2020 [facility] Sodium 138 mmol/L Normal 135-[address] [place] [address] [phone] Potassium 3.9 mmol/L Normal 3.5-5.0 Chloride 99 [...] Egfr 124.6 >60 3 Laboratory test 01/01/2020 [facility] Alcohol < 10 mg/dL Normal <10 finding [address] [place] [address] [phone] TSH (Thyroid Stim Horm) 0.54 mcIU/mL Normal 0.34-5.60 Acetaminophen < 15 g/mL 4 Salicylate < 2.50 mg/dL <30 Osmolality Serum 294 mOsm/kg Normal 275-295 1 ADDITIONAL INFORMATION This test was developed and its performance characteristics determined by [facility] in a manner consistent with CLIA requirements. This test has not been cleared or approved by the U.S. Food and Drug Administration. Test Performed by: [facility] - [facility] [address] [place] [address] Electrician Control Equipment: Julien Colin M.D. Ph.D.; CLIA# [id number] 2 Because ethnic data is not always [...] ug/mL Procedures Date Code Description Status 01/05/2020 10604 ECHO Transthorasic Realtime 2D W Doppler & Color Flow Completed Hosp 03/11/2018 833429060 Diabetic Retinal Eye Exam Completed 03/06/2017 [id number] Colonoscopy Completed 08/20/2006 [id number] Colonoscopy Completed Medical Devices Description No Information Available Encounters Type Date Location Provider Dx Diagnosis Office Visit 01/19/2020 [facility] Tanvir Velasquez, M48.02 Spinal stenosis, 10:00a Medicine - [place]eneen Mello cervical region I10 Essential (primary) hypertension F10.21 Alcohol dependence, in remission Office Visit 01/07/2020 2:07p [facility] Winter M48.02 Spinal Assoc,lois Winkler, DO stenosis, Hospitalists cervical region M50.021 Cervical disc disorder at C4-C5 level with myelopathy R26.0 Ataxic gait R29.6 Repeated falls Office Visit 01/06/2020 2:06p [facility] Winter M48.02 Spinal Assoc,lois Winkler, DO stenosis, Hospitalists cervical region R26.0 Ataxic gait Office Visit 01/05/2020 [facility] M47.12 Other 7:00a [facility] Bowens MD spondylosis with myelopathy, cervical region M48.02 Spinal stenosis, cervical region Office Visit 01/05/2020 2:06p [facility] Honey M48.02 Spinal Assoc,lois Nowak PA-C stenosis, Hospitalists cervical region R26.0 Ataxic gait E83.42 Hypomagnesemia Office Visit 01/04/2020 [facility] M47.12 Other 7:00a [facility] Bowens MD spondylosis with myelopathy, cervical region M48.02 Spinal stenosis, cervical region Office Visit 01/04/2020 [facility] M48.02 Spinal 2:05p Asslois gomez M.D. stenosis, Hospitalists cervical region M50.021 Cervical disc disorder at C4-C5 level with myelopathy R26.0 Ataxic gait I10 Essential (primary) hypertension Office Visit 01/03/2020 [facility] M48.02 Spinal 2:05p Asslois gomez M.D. stenosis, Hospitalists cervical region R26.0 Ataxic gait F10.21 Alcohol dependence, in remission I10 Essential (primary) hypertension Office Visit 01/02/2020 2:04p [facility] R26.0 Ataxic gait Assoc,lois Alves M.D. Hospitalists R53.1 Weakness R25.1 Tremor, unspecified I10 Essential (primary) hypertension Office Visit 01/01/2020 2:03p [facility] Susan Vaughan, R29.6 Repeated falls Assoc,pc N.PHoma Hospitalists R26.0 Ataxic gait Assessments Date Code Description Provider 01/19/2020 M48.02 Spinal stenosis, cervical region Tanvir Velasquez M.D. 01/19/2020 I10 Essential (primary) hypertension Tanvir Velasquez M.D. 01/19/2020 F10.21 Alcohol dependence, in remission Tanvir Velasquez M.D. 01/07/2020 M48.02 Spinal stenosis, cervical region Winter Winkler, DO 01/07/2020 M50.021 Cervical disc disorder at C4-C5 level Winter Winkler, with myelopathy 01/07/2020 R26.0 Ataxic gait Winter Winkler, DO 01/07/2020 R29.6 Repeated falls Winter Peterson, DO 01/06/2020 M48.02 Spinal stenosis, cervical region Winter Winkler, DO 01/06/2020 R26.0 Ataxic gait Winter Winkler, DO 01/05/2020 M47.12 Other spondylosis with myelopathy, Loli Bowens MD cervical region 01/05/2020 M48.02 Spinal stenosis, cervical region JULES HorneC 01/05/2020 M48.02 Spinal stenosis, cervical region Loli Bowens MD 01/05/2020 I10 Essential (primary) hypertension Mita Ashley M.D. 01/05/2020 R26.0 Ataxic gait Honey Nowak PA-C 01/05/2020 E83.42 Hypomagnesemia JULES HorneC 01/04/2020 M47.12 Other spondylosis with myelopathy, Loli Bowens MD cervical region 01/04/2020 M48.02 Spinal stenosis, cervical region Caleb Alves M.D. 01/04/2020 M48.02 Spinal stenosis, cervical region Loli Bowens MD 01/04/2020 M50.021 Cervical disc disorder at C4-C5 [...] Alves M.D. 01/01/2020 R29.6 Repeated falls Susan Vaughan N.P. 01/01/2020 R26.0 Ataxic gait Susan Vaughan N.P. Plan of Treatment 01/19/2020 - Tanvir [...] his scan. Patient also advised to contact [facility] radiology to get a copy of his [...]
--- OUTSIDE RECORDS SUMMARY | 2020-02-10 09:25 | XMS REPORT ---
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 [id number] Neuro anxiety Neuro/Emot Active Citlalli present ion 3-24 (Elisa) 09:30: Bejarano 00 [id number] Neuro depressive Neuro/Emot Active Citlalli feelings ion 3-24 (Elisa) present 09:30: Bejarano 00 [id number] Allergies, Adverse Reactions, Alerts Allergy Name Allergy Status Severity Reaction(s) Onset Inactive Treating Comments Type Date Date Clinician citalopram Unknown Active Unknown Reaction Citlalli Unknown 3-30 (Elisa) Darci [id number] hydrochlorithia Unknown Active Unknown Reaction Citlalli zide Unknown 3-30 (Elisa) Darci [id number] lisinopril Unknown Active Unknown Reaction Citlalli Unknown 3-30 (Elisa) Darci [id number] Medications Ordered Filled Start Stop Current Ordering Indication Dosage Frequency Signature Comments Components Medication Medication Date Date Medication? Clinician (SIG) Name Name multivitami multivitami 2019-0 Yes Pal Unknown Unknown n capsule n capsule 3-24 Ena OKEEFE valsartan valsartan 2019-0 Yes Pal Unknown Unknown 160 mg 160 mg 3-24 Ena OKEEFE tablet tablet buPROPion buPROPion 2019-0 Yes Pal Unknown Unknown HCl SR 100 HCl SR 100 3-24 Ena OKEEFE mg mg [...]
--- OUTSIDE RECORDS SUMMARY | 2020-02-10 09:25 | XMS REPORT ---
:1955 Author Organization [facility] Care Team Providers Name Role Phone Unavailable Unavailable Unavailable Problems Condition Condition Condition Status Onset Resolution Last Treating Comments Name Details Category Date Date Treatment Clinician Date Wernicke's Wernicke's Diagnosis Active Qamar encephalopa encephalopa 3-23 Anguish thy thy [id number] Unspecified Unspecified Diagnosis Active Qamar cord cord 3-23 Anguish compression compression [id number] Neuro anxiety Neuro/Emot Active Citlalli present ion 3-24 (Elisa) 09:30: Bejarano 00 [id number] Neuro depressive Neuro/Emot Active Citlalli feelings ion 3-24 (Elisa) present 09:30: Bejarano 00 [id number] Allergies, Adverse Reactions, Alerts Allergy Name Allergy Status Severity Reaction(s) Onset Inactive Treating Comments Type Date Date Clinician citalopram Unknown Active Unknown Reaction Citlalli Unknown 3-30 (Elisa) Darci [id number] hydrochlorithia Unknown Active Unknown Reaction Citlalli zide Unknown 3-30 (Elisa) Darci [id number] lisinopril Unknown Active Unknown Reaction Citlalli Unknown 3-30 (Elisa) Darci [id number] Medications Ordered Filled Start Stop Current Ordering [...]
--- OUTSIDE RECORDS SUMMARY | 2020-02-10 09:25 | XMS REPORT ---
:1955 Author Organization [facility] Care Team Providers Name Role Phone Unavailable Unavailable Unavailable Problems Condition Condition Condition Status Onset Resolution Last Treating Comments Name Details Category Date Date Treatment Clinician Date Wernicke's Wernicke's Diagnosis Active Qamar encephalopa encephalopa 3-23 Anguish thy thy [id number] Unspecified Unspecified Diagnosis Active Qamar cord cord 3-23 Anguish compression compression [id number] Neuro anxiety Neuro/Emot Active Citlalli present ion 3-24 (Elisa) 09:30: Bejarano 00 [id number] Neuro depressive Neuro/Emot Active Citlalli feelings ion 3-24 (Elisa) present 09:30: Bejarano 00 [id number] Allergies, Adverse Reactions, Alerts Allergy Name Allergy Status Severity Reaction(s) Onset Inactive Treating Comments Type Date Date Clinician citalopram Unknown Active Unknown Reaction Citlalli Unknown 3-30 (Elisa) Darci [id number] hydrochlorithia Unknown Active Unknown Reaction Citlalli zide Unknown 3-30 (Elisa) Darci [id number] lisinopril Unknown Active Unknown Reaction Citlalli Unknown 3-30 (Elisa) Darci [id number] Medications Ordered Filled Start Stop Current Ordering [...]
--- OUTSIDE RECORDS SUMMARY | 2020-02-10 09:25 | XMS REPORT | Continuity of Care Document ---
:1955 External Reference #:[id number] Author Name Loli Bowens MD (transmitted by agent of provider January) Address [address] , [place] [address] Care Team Providers Name Role Phone Kristian Bailon MD - Care Team Information Operations Asst [phone] Otolaryngology Sreekanth Livingston MD - Urology Care Team Information Operations Asst [phone] Mckinley Nieves MD - Orthopaedic Care Team Information Operations Asst [phone] Surgery Roxie Weston M.D. - Family Medicine Care Team Information Operations Asst Problems Active Problems Provider Date Mixed hyperlipidemia [...] Oil + D3 1 capsule daily Unknown [id number] Capsules Saw [place] 1 po hs 120caps Unknown 450mg Capsules Centrum Silver Ultra 1 po qd Unknown Mens Tablets Ascorbic Acid 1 by mouth every day Unknown 500mg Tablets Magnesium Oxide 2 tab by mouth every Unknown 400mg day Tablets Immunizations CPT Code Status Date Vaccine Reaction Lot # [id number] Given 04/19/2019 Pneumococcal Conjugate 525np Vaccine 13 Valent For Intramuscular Use 05215 Given 11/03/2017 Influenza Virus Vaccine, no immedite reaction [id number] Quadrivalent, Split, noted .. hh Preservative Free 10632 Given 12/01/2015 Zoster (Zostavax) [id number] 94043 Given 12/01/2015 Influenza Virus Vaccine, [id number] Quadrivalent, Split, Preservative Free 54039 Given 10/27/2015 Tdap - [id number] Tetanus/Diptheria/Acellular Pertussis Q2038 Given 07/10/2012 Fluzone Vaccine [id number] 02408 Given 09/23/2011 Influenza Virus 3Yrs & Over [id number] Vital Signs Date Vital Result Comment 04/19/2019 [...] Result H/L Range Note Laboratory test 01/01/2020 [facility] Ammonia 49 mcmol/L Normal 16-53 finding [address] [place] [address] [phone] Vitamin B1 (Whole Blood) 127 nmol/L 70-180 1 Basic Metabolic 01/01/2020 [facility] Sodium 137 mmol/L Normal 135-145 Panel [address] [place] [address] [phone] Potassium 4.1 mmol/L Normal 3.5-5.0 Chloride 104 mmol/L Normal 101-111 Co2 Carbon Dioxide 20 mmol/L Low 22-32 Anion Gap 13 mmol/L High 2-11 Glucose 83 mg/dL Normal 70-100 Blood Urea Nitrogen 12 mg/dL Normal 6-24 Creatinine 0.68 mg/dL Normal 0.67-1.17 BUN/Creatinine Ratio 17.6 Normal 8-20 Calcium 7.9 mg/dL Low 8.6-10.3 Egfr Non- 117.0 >60 Egfr 141.6 >60 2 CBC Auto 01/01/2020 [facility] White Blood 11.4 10^3/uL High 3.5-10.[address] [place] [address] [phone] Red Blood Count 3.89 10^6/uL Low 4.18-5.48 [...] Blood Cells % 0.0 Comp Metabolic 01/01/2020 [facility] Sodium 138 mmol/L Normal 135-[address] [place] [address] [phone] Potassium 3.9 mmol/L Normal 3.5-5.0 Chloride 99 [...] Egfr 124.6 >60 3 Laboratory test 01/01/2020 [facility] Alcohol < 10 mg/dL Normal <10 finding [address] [place] [address] [phone] TSH (Thyroid Stim Horm) 0.54 mcIU/mL Normal 0.34-5.60 Acetaminophen < 15 g/mL 4 Salicylate < 2.50 mg/dL <30 Osmolality Serum 294 mOsm/kg Normal 275-295 1 ADDITIONAL INFORMATION This test was developed and its performance characteristics determined by [facility] in a manner consistent with CLIA requirements. This test has not been cleared or approved by the U.S. Food and Drug Administration. Test Performed by: [facility] - [facility] [address] [place] [address] Shell Molder: Julien Colin M.D. Ph.D.; CLIA# [id number] 2 Because ethnic data is not always [...] ug/mL Procedures Date Code Description Status 01/05/2020 50965 ECHO Transthorasic Realtime 2D W Doppler & Color Flow Completed Hosp 03/11/2018 [id number] Diabetic Retinal Eye Exam Completed 03/06/2017 [id number] Colonoscopy Completed 08/20/2006 [id number] Colonoscopy Completed Medical Devices Description No Information Available Encounters Type Date Location Provider Dx Diagnosis Office Visit 01/19/2020 [facility] Tanvir Velasquez, M48.02 Spinal stenosis, 10:00a Medicine - Deneen Mello cervical region I10 Essential (primary) hypertension F10.21 Alcohol dependence, in remission Office Visit 01/07/2020 2:07p [facility] Winter M48.02 Spinal Assoc,lois Winkler, DO stenosis, Hospitalists cervical region M50.021 Cervical disc disorder at C4-C5 level with myelopathy R26.0 Ataxic gait R29.6 Repeated falls Office Visit 01/06/2020 2:06p [facility] Winter M48.02 Spinal Assoc,lois Winkler, DO stenosis, Hospitalists cervical region R26.0 Ataxic gait Office Visit 01/05/2020 [facility] M47.12 Other 7:00a [facility] Bowens MD spondylosis with myelopathy, cervical region M48.02 Spinal stenosis, cervical region Office Visit 01/05/2020 2:06p [facility] Honey M48.02 Spinal Assoc,lois Nowak PA-C stenosis, Hospitalists cervical region R26.0 Ataxic gait E83.42 Hypomagnesemia Office Visit 01/04/2020 [facility] M47.12 Other 7:00a [facility] Bowens MD spondylosis with myelopathy, cervical region M48.02 Spinal stenosis, cervical region Office Visit 01/04/2020 [facility] M48.02 Spinal 2:05p Asslois gomez M.D. stenosis, Hospitalists cervical region M50.021 Cervical disc disorder at C4-C5 level with myelopathy R26.0 Ataxic gait I10 Essential (primary) hypertension Office Visit 01/03/2020 [facility] M48.02 Spinal 2:05p Asslois gomez M.D. stenosis, Hospitalists cervical region R26.0 Ataxic gait F10.21 Alcohol dependence, in remission I10 Essential (primary) hypertension Office Visit 01/02/2020 2:04p [facility] R26.0 Ataxic gait Assoc,lois Alves M.D. Hospitalists R53.1 Weakness R25.1 Tremor, unspecified I10 Essential (primary) hypertension Office Visit 01/01/2020 2:03p [facility] Susan Vaughan, R29.6 Repeated falls Assoc,pc N.PHoma [...] his scan. Patient also advised to contact [facility] radiology to get a copy of his [...]
--- OUTSIDE RECORDS SUMMARY | 2020-02-10 09:25 | XMS REPORT | Continuity of Care Document ---
:1955 External Reference #:[id number] Author Name Tanvir Velasquez M.D. (transmitted by agent of provider Laura Leblanc) Address [address], [place] [address] Care Team Providers Name Role Phone Kristian Bailon MD - Care Team Information Bacteriologist Fishery [phone] Otolaryngology Sreekanth Livingston MD - Urology Care Team Information Bacteriologist [place] [phone] Mckinley Nieves MD - Orthopaedic Care Team Information Bacteriologist [place] Surgery Roxie Weston M.D. - Family Medicine Care Team Information Bacteriologist [place] [phone] Problems Active Problems Provider Date Mixed hyperlipidemia [...] Oil + D3 1 capsule daily Unknown [id number] Capsules Saw [place] 1 po hs 120caps Unknown 450mg Capsules Centrum Silver Ultra 1 po qd Unknown Mens Tablets Ascorbic Acid 1 by mouth every day Unknown 500mg Tablets Magnesium Oxide 2 tab by mouth every Unknown 400mg day Tablets Immunizations CPT Code Status Date Vaccine Reaction Lot # 50487 Given 04/19/2019 Pneumococcal Conjugate 525np Vaccine 13 Valent For Intramuscular Use 98916 Given 11/03/2017 Influenza Virus Vaccine, no immedite reaction [id number] Quadrivalent, Split, noted .. hh Preservative Free 82828 Given 12/01/2015 Zoster (Zostavax) [id number] 53970 Given 12/01/2015 Influenza Virus Vaccine, x7yr2 Quadrivalent, Split, Preservative Free 48245 Given 10/27/2015 Tdap - [id number] Tetanus/Diptheria/Acellular Pertussis Q2038 Given 07/10/2012 Fluzone Vaccine [id number] 24918 Given 09/23/2011 Influenza Virus 3Yrs & Over [id number] Vital Signs Date Vital Result Comment 04/19/2019 [...] Result H/L Range Note Laboratory test 01/01/2020 [facility] Ammonia 49 mcmol/L Normal 16-53 finding [address] [place] [address] [phone] Vitamin B1 (Whole Blood) 127 nmol/L 70-180 1 Basic Metabolic 01/01/2020 [facility] Sodium 137 mmol/L Normal 135-145 Panel [address] [place] [address] [phone] Potassium 4.1 mmol/L Normal 3.5-5.0 Chloride 104 mmol/L Normal 101-111 Co2 Carbon Dioxide 20 mmol/L Low 22-32 Anion Gap 13 mmol/L High 2-11 Glucose 83 mg/dL Normal 70-100 Blood Urea Nitrogen 12 mg/dL Normal 6-24 Creatinine 0.68 mg/dL Normal 0.67-1.17 BUN/Creatinine Ratio 17.6 Normal 8-20 Calcium 7.9 mg/dL Low 8.6-10.3 Egfr Non- 117.0 >60 Egfr 141.6 >60 2 CBC Auto 01/01/2020 [facility] White Blood 11.4 10^3/uL High 3.5-10.[address] [place] [address] [phone] Red Blood Count 3.89 10^6/uL Low 4.18-5.48 [...] Blood Cells % 0.0 Comp Metabolic 01/01/2020 [facility] Sodium 138 mmol/L Normal 135-[address] [place] [address] [phone] Potassium 3.9 mmol/L Normal 3.5-5.0 Chloride 99 [...] Egfr 124.6 >60 3 Laboratory test 01/01/2020 [facility] Alcohol < 10 mg/dL Normal <10 finding [address] [place] [address] [phone] TSH (Thyroid Stim Horm) 0.54 mcIU/mL Normal 0.34-5.60 Acetaminophen < 15 g/mL 4 Salicylate < 2.50 mg/dL <30 Osmolality Serum 294 mOsm/kg Normal 275-295 1 ADDITIONAL INFORMATION This test was developed and its performance characteristics determined by [facility] in a manner consistent with CLIA requirements. This test has not been cleared or approved by the U.S. Food and Drug Administration. Test Performed by: [facility] - [facility] [address] [place] [address] Director Energy: Julien Colin M.D. Ph.D.; CLIA# [id number] 2 Because ethnic data is not always [...] ug/mL Procedures Date Code Description Status 01/05/2020 72413 ECHO Transthorasic Realtime 2D W Doppler & Color Flow Completed Hosp 03/11/2018 [id number] Diabetic Retinal Eye Exam Completed 03/06/2017 [id number] Colonoscopy Completed 08/20/2006 [id number] Colonoscopy Completed Medical Devices Description No Information Available Encounters Type Date Location Provider Dx Diagnosis Office Visit 01/19/2020 [facility] Tanvir Velasquez, M48.02 Spinal stenosis, 10:00a Medicine - Deneen Mello cervical region I10 Essential (primary) hypertension F10.21 Alcohol dependence, in remission Office Visit 01/06/2020 2:06p [facility] Winter M48.02 Spinal Assoc,lois Winkler DO stenosis, Hospitalists cervical region R26.0 Ataxic gait Office Visit 01/05/2020 2:06p [facility] Honey M48.02 Spinal Assoc,lois Nowak PA-C stenosis, Hospitalists cervical region R26.0 Ataxic gait E83.42 Hypomagnesemia Office Visit 01/04/2020 [facility] Caleb M48.02 Spinal 2:05p Assoc,lois Alves M.D. stenosis, Hospitalists cervical region M50.021 Cervical disc disorder at C4-C5 level with myelopathy R26.0 Ataxic gait I10 Essential (primary) hypertension Office Visit 01/03/2020 [facility] M48.02 Spinal 2:05p Assoc,lois Alves M.D. stenosis, Hospitalists cervical region R26.0 Ataxic gait F10.21 Alcohol dependence, in remission I10 Essential (primary) hypertension Office Visit 01/02/2020 2:04p [facility] R26.0 Ataxic gait Assoc,lois Alves M.D. Hospitalists R53.1 Weakness R25.1 Tremor, unspecified I10 Essential (primary) hypertension Office Visit 01/01/2020 2:03p [facility] Susan Vaughan, R29.6 Repeated falls Assoc,pc N.PHoma [...] N.P. 01/01/2020 R26.0 Ataxic gait Susan Vaughan N.Diego. Plan of Treatment 01/19/2020 - Tanvir Velasquez [...] his scan. Patient also advised to contact [facility] radiology to get a copy of his [...]
--- OUTSIDE RECORDS SUMMARY | 2020-02-10 09:25 | XMS REPORT ---
:1955 Author Organization [facility] Care Team Providers Name Role Phone Unavailable Unavailable Unavailable Problems Condition Condition Condition Status Onset Resolution Last Treating Comments Name Details Category Date Date Treatment Clinician Date Wernicke's Wernicke's Diagnosis Active Qamar encephalopa encephalopa 3-23 Anguish thy thy [id number] Unspecified Unspecified Diagnosis Active Qamar cord cord 3-23 Anguish compression compression [id number] Neuro anxiety Neuro/Emot Active Citlalli present ion 3-24 (Elisa) 09:30: Bejarano 00 [id number] Neuro depressive Neuro/Emot Active Citlalli feelings ion 3-24 (Elisa) present 09:30: Bejarano 00 [id number] Allergies, Adverse Reactions, Alerts Allergy Name Allergy Status Severity Reaction(s) Onset Inactive Treating Comments Type Date Date Clinician citalopram Unknown Active Unknown Reaction Citlalli Unknown 3-30 (Elisa) Darci [id number] hydrochlorithia Unknown Active Unknown Reaction Citlalli zide Unknown 3-30 (Elisa) Darci [id number] lisinopril Unknown Active Unknown Reaction Citlalli Unknown 3-30 (Elisa) Darci [id number] Medications Ordered Filled Start Stop Current Ordering [...]
--- NOTE | 2020-02-10 09:26 | ED ---
Complex/Multi-Sys Presentation - HPI Summary HPI Summary: 65 [facility] in his bilateral feet and fingers which has been intermittent for several years after he fell down a flight of stairs. He reports gradually worsening numbness in feet and lower legs which makes it difficult to ambulate. He reports weakness in left leg which is chronic. He additionally c/o multiple areas of ecchymosis on his upper extremities. He is not on anticoagulants. Hx frequent falls. Dx spinal stenosis 1 month ago. Admitted on 12/31. Had MRI of CTL Spine. C Spine MRI had elevated cord signal at C4 and C5. L Spine MRI showed multilevel disease. T Spine MRI showed degenerative disease. Dr. Reeves and Dr. Bowens consulted. Dr. Bowens recommended cervical decompression but patient declined for second opinion. They thought his symptoms were related to cervical spondylosis as well as alcohol related neuropathy. He has not been able to get a second opinion yet d/t COVID pandemic. Hasn't had fall since d/c on 01/07. Medications reviewed. Allergies noted. - History Of Current Complaint Chief Complaint: EDGeneral Time Seen by Provider: 02/10/20 09:24 Hx Obtained From: Patient, Medical Records Onset/Duration: Still Present Timing: Intermittent, Lasting: Aggravating Factor(s): Nothing Alleviating Factor(s): Nothing - Allergies/Home Medications Allergies/Adverse Reactions: Allergies Allergy/AdvReac Type Severity Reaction Status Date / Time hydrochlorothiazide Allergy Severe See Comment Verified 02/10/20 09:22 lisinopril Allergy Intermediate Coughing Verified 02/10/20 09:22 citalopram AdvReac See Comment Verified 02/10/20 09:22 Home Medications: Home Medications Ascorbic Acid TAB* [Vitamin C TAB*] 500 mg PO DAILY 11/01/12 [History Confirmed 02/10/20] Simvastatin TAB(NF) [Zocor 20 MG (NF)] 20 mg PO QPM 10/25/15 [History Confirmed 02/10/20] Valsartan TAB* [Diovan TAB*] 160 mg PO DAILY 10/25/15 [History Confirmed ] buPROPion SR TAB* [Wellbutrin SR TAB*] 100 mg PO DAILY 10/25/15 [History Confirmed 02/10/20] Metoprolol Succinate XL TAB* [Toprol XL TAB*] 50 mg PO DAILY 12/25/17 [History Confirmed 02/10/20] Multivitamins/Minerals TAB* [Theragran/minerals TAB*] 1 tab PO DAILY 12/25/17 [ History Confirmed 02/10/20] F[place]ont-3 Fatty Acids [F[place]ont-3] 1,000 mg PO DAILY 12/25/17 [History Confirmed ] Omeprazole CAP (NF) [Prilosec CAP* 20 MG] 20 mg PO DAILY 12/25/17 [History Confirmed 02/10/20] Magnesium Oxide TAB* [MagOx 400 TAB*] 800 mg PO DAILY tab 01/06/18 [Rx Confirmed 02/10/20] Saw Buffalo Fruit/Zinc Picoli [Saw [place] Extract] 1 cap PO BEDTIME 02/10/20 [History Confirmed 02/10/20] Varicella-Zoster Ge/As01b/Pf [Shingrix] 50 mcg IM ONCE 02/10/20 [History Confirmed 02/10/20] PMH/Surg Hx/FS Hx/Imm Hx Endocrine/Hematology History: Denies: Hx Diabetes Cardiovascular History: Reports: Hx Hypertension, Other Cardiovascular Problems/ Disorders - high cholesterol Denies: Hx Pacemaker/ICD GI History: Reports: Hx Gastroesophageal Reflux Disease - ON MEDICATION FOR History: Reports: Other Problems/Disorders - prostate Sensory History: Reports: Hx Cataracts - left eye, Hx Contacts or Glasses Opthamlomology History: Reports: Hx Cataracts - left eye, Hx Contacts or Glasses Psychiatric History: Reports: Hx Anxiety - ON MEDICATION FOR - Cancer History Hx Chemotherapy: No - Surgical History Surgical History: Yes Surgery Procedure, Year, and Place: CATARACTS BILATERAL Hx Anesthesia Reactions: No Infectious Disease History: No Infectious Disease History: Denies: Traveled Outside the [place] in Last 30 Days - Family History Known Family History: Negative: Cardiac Disease - Social History Alcohol Use: Daily Alcohol Amount: 2-3 beers per day per pt Hx Substance Use: Yes Substance Use Type: Reports: Marijuana Hx Tobacco Use: Yes Smoking Status (MU): Current Some Day Smoker Type: Cigars Amount Used/How Often: 3/4 PPD X 25 YEARS Have You Smoked in the Last Year: No Review of Systems Positive: Other - swelling in his bilateral feet and fingers Positive: Other - multiple areas of ecchymosis on his upper extremities Positive: Weakness - left leg, Numbness - feet and lower legs All Other Systems Reviewed And Are Negative: Yes Physical Exam - Summary Physical Exam Summary: Constitutional: Well-developed, Well-nourished, Alert. (-) Distressed Skin: Warm, Dry; scant ecchymosis to the upper extremities HENT: Normocephalic; Atraumatic. C collar in place Eyes: Conjunctiva normal Neck: Musculoskeletal ROM normal neck. (-) JVD, (-) Stridor, (-) Nuchal rigidity Cardio: Rhythm regular, rate normal, Heart sounds normal; Intact distal pulses; Radial pulses are 2+ and symmetric. (-) Murmur Pulmonary/Chest wall: Effort normal. (-) Respiratory distress, (-) Wheezes, (-) Rales Abd: Soft, (-) tenderness, (-) Distension, (-) Guarding, (-) Rebound Musculoskeletal: Trace edema to the bilateral feet. 2+ DP pulses Neuro: Alert, Oriented x3; left foot has 2/5 dorsal flexion strength, otherwise 5/5 strength Psych: Mood and affect Normal Triage Information Reviewed: Yes Vital Signs On Initial Exam: Initial Vitals Temp Pulse Resp BP Pulse Ox 98.2 F 95 19 168/99 99 02/10/20 09:17 02/10/20 09:17 02/10/20 09:17 02/10/20 09:17 02/10/20 09:17 Vital Signs Reviewed: Yes Procedures - Sedation Patient Received Moderate/Deep Sedation with Procedure: No Diagnostics - Vital Signs Vital Signs Temp Pulse Resp BP Pulse Ox 02/10/20 09:17 98.2 F 95 19 168/99 99 - Laboratory Result Diagrams: 02/10/20 09:48 02/10/20 09:48 Lab Statement: Any lab studies that have been ordered have been reviewed, and results considered in the medical decision making process. Re-Evaluation - Re-Evaluation First Eval Re-Evaluation Time: 10:43 - patient declines to see Dr. Bowens again Second Eval Re-Evaluation Time: 12:45 Change: Unchanged - patient does not want to stay for NSGY eval. Patient is AAOx4, observed in ED for sobriety, now with clear sensorium, no signs of intoxication, no SI/HI, a normal gait and normal speech pattern and capacity to refuse care. I explained to the patient the risks of leaving AMA to include paralysis, , disability, and loss of function. I had an extensive conversation with the patient regarding return precautions and encouraged them to return sooner for any worsening condition, new symptoms or ANY other concerns. Complex Multi-Symp Course/Dx Course Of Treatment: 65 y/o male w hx EtOH abuse, recent admission for weakness found to have C4-5 cervical cord compression pw similar symptoms. - Exam similar to prior w numbness below bilateral knees, weakness of L foot on dorsiflexion. D/w patient I would like him to see NSGY as he would benefit from fusion as per the last note. Patient declines. I d/w patient my concern for paralysis, he still declines. EtOH level 145, observed in ED for 3 hours. Clinically sober. Ambulated w walker. - Diagnoses Provider Diagnoses: Cervical myelopathy, Cervical stenosis of spine - Critical Care Time Critical Care Statement: Critical care time is provided exclusive of any time spent performing procedures. Discharge ED - Sign-Out/Discharge Documenting (check all that apply): Patient Departure - Discharge Plan Condition: Stable Disposition: AGAINST MEDICAL ADVICE Patient Education Materials: Degenerative Disc Disease (ED) Referrals: Roxie Weston MD [Primary Care Provider] - Additional Instructions: You were seen in the emergency department for this of your legs and difficulty walking. This is likely progression of your known cervical disease. We advise you follow up with Dr. York and return for worsening symptoms. Our concern is that with the severity, of your disease, you could become paralyzed at any time. We recommend that you stay for admission however you declined, if you reconsider, please come back to the ER Please follow up with your primary care doctor in next 2-3 days and return to emergency department for worsening or concerning symptoms. It was a pleasure taking care of you today. - Billing Disposition and Condition Condition: STABLE Disposition: Against Medical Advice - Attestation Statements Document Initiated by Scribe: Yes Documenting Scribe: Rocío Lemons Provider For Whom Shamaribmanuel is Documenting (Include Credential): Ld Landa MD Scribe Attestation: Rocío August, scribed for Ld Landa MD on 02/10/20 at 1456. Scribe Documentation Reviewed: Yes Provider Attestation: The documentation as recorded by the scribe, Rocío Lemons accurately reflects the service I personally performed and the decisions made by me, Ld Landa MD Status of Shamaribmanuel Document: Viewed
--- OUTSIDE RECORDS SUMMARY | 2020-02-10 09:26 | XMS REPORT ---
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 Clinician (SIG) Name Name No Known No Known No None None None Medications Medications For This For This Patient Patient Procedures This patient has no known procedures. Results This patient has no known results.
--- OUTSIDE RECORDS SUMMARY | 2020-02-10 09:26 | XMS REPORT | Continuity of Care Document ---
:1955 External Reference #:[id number] Author Name Susan Vaughan N.P. (transmitted by agent of provider Leanne Israel) Address [address], [place] [address] Care Team Providers Name Role Phone Kristian Bailon MD - Care Team Information Electric Range Preparer [phone] Otolaryngology Sreekanth Livingston MD - Urology Care Team Information Electric Range Preparer [phone] Mckinley Nieves MD - Orthopaedic Care Team Information Electric Range Preparer Surgery Roxie Weston M.D. - Family Medicine Care Team Information Electric Range Preparer Problems Active Problems Provider Date Mixed hyperlipidemia [...] Oil + D3 1 capsule daily Unknown [id number] Capsules Saw [place] 1 po hs 120caps Unknown 450mg Capsules Centrum Silver Ultra 1 po qd Unknown Mens Tablets Ascorbic Acid 1 by mouth every day Unknown 500mg Tablets Magnesium Oxide 2 tab by mouth every Unknown 400mg day Tablets Immunizations CPT Code Status Date Vaccine Reaction Lot # 77649 Given 04/19/2019 Pneumococcal Conjugate 525np Vaccine 13 Valent For Intramuscular Use 12534 Given 11/03/2017 Influenza Virus Vaccine, no immedite reaction [id number] Quadrivalent, Split, noted .. hh Preservative Free 67115 Given 12/01/2015 Zoster (Zostavax) [id number] 01590 Given 12/01/2015 Influenza Virus Vaccine, [id number] Quadrivalent, Split, Preservative Free 99166 Given 10/27/2015 Tdap - [id number] Tetanus/Diptheria/Acellular Pertussis Q2038 Given 07/10/2012 Fluzone Vaccine [id number] 76575 Given 09/23/2011 Influenza Virus 3Yrs & Over [id number] Vital Signs Date Vital Result Comment 04/19/2019 [...] Result H/L Range Note Laboratory test 01/01/2020 Ammonia 49 mcmol/L Normal 16-53 finding [address] [place] [address] [phone] Vitamin B1 (Whole Blood) 127 nmol/L 70-180 1 Basic Metabolic 01/01/2020 Sodium 137 mmol/L Normal 135-145 Panel [address] [place] [address] [phone] Potassium 4.1 mmol/L Normal 3.5-5.0 Chloride 104 mmol/L Normal 101-111 Co2 Carbon Dioxide 20 mmol/L Low 22-32 Anion Gap 13 mmol/L High 2-11 Glucose 83 mg/dL Normal 70-100 Blood Urea Nitrogen 12 mg/dL Normal 6-24 Creatinine 0.68 mg/dL Normal 0.67-1.17 BUN/Creatinine Ratio 17.6 Normal 8-20 Calcium 7.9 mg/dL Low 8.6-10.3 Egfr Non- 117.0 >60 Egfr 141.6 >60 2 CBC Auto 01/01/2020 White Blood 11.4 10^3/uL High 3.5-10.[address] [place] [address] [phone] Red Blood Count 3.89 10^6/uL Low 4.18-5.48 [...] Blood Cells % 0.0 Comp Metabolic 01/01/2020 Sodium 138 mmol/L Normal 135-[address] [place] [address] [phone] Potassium 3.9 mmol/L Normal 3.5-5.0 Chloride 99 [...] Egfr 124.6 >60 3 Laboratory test 01/01/2020 Alcohol < 10 mg/dL Normal <10 finding [address] [place] [address] [phone] TSH (Thyroid Stim Horm) 0.54 mcIU/mL Normal 0.34-5.60 Acetaminophen < 15 g/mL 4 Salicylate < 2.50 mg/dL <30 Osmolality Serum 294 mOsm/kg Normal 275-295 1 ADDITIONAL INFORMATION This test was developed and its performance characteristics determined by [facility] in a manner consistent with CLIA requirements. This test has not been cleared or approved by the U.S. Food and Drug Administration. Test Performed by: [facility] - [facility] [address] [place] [address] Vice President Marketing & Development: Julien Colin M.D. Ph.D.; CLIA# [id number] 2 Because ethnic data is not always [...] ug/mL Procedures Date Code Description Status 01/05/2020 11666 ECHO Transthorasic Realtime 2D W Doppler & Color Flow Completed Hosp 03/11/2018 [id number] Diabetic Retinal Eye Exam Completed 03/06/2017 95988328 Colonoscopy Completed 08/20/2006 [id number] Colonoscopy Completed Medical Devices Description No Information Available Encounters Type Date Location Provider Dx Diagnosis Office Visit 01/06/2020 [facility] Winter Winkler M48.02 Spinal stenosis, 2:06p lois Olsen DO cervical region Hospitalists R26.0 Ataxic gait Office Visit 01/05/2020 2:06p [facility] Honey M48.02 Spinal Assoc,lois Nowak PA-C stenosis, Hospitalists cervical region R26.0 Ataxic gait E83.42 Hypomagnesemia Office Visit 01/04/2020 [facility] M48.02 Spinal 2:05p lois Olsen M.D. stenosis, Hospitalists cervical region M50.021 Cervical disc disorder at C4-C5 level with myelopathy R26.0 Ataxic gait I10 Essential (primary) hypertension Office Visit 01/03/2020 [facility] M48.02 Spinal 2:05p Assoc,lois Alves M.D. stenosis, Hospitalists cervical region R26.0 Ataxic gait F10.21 Alcohol dependence, in remission I10 Essential (primary) hypertension Office Visit 01/02/2020 2:04p [facility] R26.0 Ataxic gait Assoc,lois Alves M.D. 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
--- OUTSIDE RECORDS SUMMARY | 2020-02-10 09:26 | XMS REPORT | Continuity of Care Document ---
:1955 External Reference #:[id number] Author Name Honey Nowak PA-C (transmitted by agent of provider Leanne Israel) Address [address] [place] [address] Care Team Providers Name Role Phone Kristian Bailon MD - Care Team Information Regional Dedicated Truck Driver [phone] Otolaryngology Sreekanth Livignston MD - Urology Care Team Information Regional Dedicated Truck Driver [phone] Mckinley Nieves MD - Orthopaedic Care Team Information Regional Dedicated Truck Driver Surgery Roxie Weston M.D. - Family Medicine Care Team Information Regional Dedicated Truck Driver Problems Active Problems Provider Date Mixed hyperlipidemia [...] Oil + D3 1 capsule daily Unknown [id number] Capsules Saw [place] 1 po hs 120caps Unknown 450mg Capsules Centrum Silver Ultra 1 po qd Unknown Mens Tablets Ascorbic Acid 1 by mouth every day Unknown 500mg Tablets Magnesium Oxide 2 tab by mouth every Unknown 400mg day Tablets Immunizations CPT Code Status Date Vaccine Reaction Lot # 96767 Given 04/19/2019 Pneumococcal Conjugate 525np Vaccine 13 Valent For Intramuscular Use 10976 Given 11/03/2017 Influenza Virus Vaccine, no immedite reaction [id number] Quadrivalent, Split, noted .. hh Preservative Free 87547 Given 12/01/2015 Zoster (Zostavax) [id number] 82051 Given 12/01/2015 Influenza Virus Vaccine, [id number] Quadrivalent, Split, Preservative Free 36014 Given 10/27/2015 Tdap - [id number] Tetanus/Diptheria/Acellular Pertussis Q2038 Given 07/10/2012 Fluzone Vaccine [id number] 76004 Given 09/23/2011 Influenza Virus 3Yrs & Over [id number] Vital Signs Date Vital Result Comment 04/19/2019 [...] 49 mcmol/L Normal 16-53 finding [address] [place] [address] [phone] Vitamin B1 (Whole Blood) 127 nmol/L 70-180 1 Basic Metabolic 01/01/2020 [facility] Sodium 137 mmol/L Normal 135-145 Panel [address] [place] [address] [phone] Potassium 4.1 mmol/L Normal 3.5-5.0 Chloride 104 [...] High 3.5-10.[address] [place] [address] [phone] Red Blood Count 3.89 10^6/uL Low 4.18-5.48 [...] mmol/L Normal 135-[address] [place] [address] [phone] Potassium 3.9 mmol/L Normal 3.5-5.0 Chloride 99 [...] < 10 mg/dL Normal <10 finding [address] [place] [address] [phone] TSH (Thyroid Stim Horm) 0.54 mcIU/mL Normal 0.34-5.60 Acetaminophen < 15 g/mL 4 Salicylate < 2.50 mg/dL <30 Osmolality Serum 294 mOsm/kg Normal 275-295 1 ADDITIONAL INFORMATION This test was developed and its performance characteristics determined by [facility] in a manner consistent with CLIA requirements. This test has not been cleared or approved by the U.S. Food and Drug Administration. Test Performed by: [facility] - [facility] [address] [place] [address] Paper Bundler: Julien Colin M.D. Ph.D.; CLIA# [id number] 2 Because ethnic data is not always [...] ug/mL Procedures Date Code Description Status 01/05/2020 12787 ECHO Transthorasic Realtime 2D W Doppler & Color Flow Completed Hosp 03/11/2018 549525471 Diabetic Retinal Eye Exam Completed 03/06/2017 52533509 Colonoscopy Completed 08/20/2006 10606969 Colonoscopy Completed Medical Devices Description No Information Available Encounters Type Date Location Provider Dx Diagnosis Office Visit 01/06/2020 [facility] Winter Winkler, M48.02 Spinal stenosis, 2:06p lois Olsen DO cervical region Hospitalists R26.0 Ataxic gait Office Visit 01/05/2020 2:06p [facility] Honey M48.02 Spinal Assoclois PA-C stenosis, Hospitalists cervical region R26.0 Ataxic gait E83.42 Hypomagnesemia Office Visit [facility] M48.02 Spinal 2:05p lois Olsen M.D. stenosis, Hospitalists cervical region M50.021 Cervical disc disorder at C4-C5 level with myelopathy R26.0 Ataxic gait I10 Essential (primary) hypertension Office Visit 01/03/2020 [facility] M48.02 Spinal 2:05p Assoc,lois Alves M.D. stenosis, Hospitalists cervical region R26.0 Ataxic gait F10.21 Alcohol dependence, in remission I10 Essential (primary) hypertension Office Visit 01/02/2020 2:04p [facility] Caleb R26.0 Ataxic gait Assoc,lois Alves M.D. Hospitalists R53.1 Weakness R25.1 Tremor, unspecified I10 Essential (primary) hypertension Office Visit 01/01/2020 2:03p [facility] Susan Clement, R29.6 Repeated falls Assoc,pc N.P. 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
--- OUTSIDE RECORDS SUMMARY | 2020-02-10 09:26 | XMS REPORT | Continuity of Care Document ---
:1955 External Reference #:[id number] Author Name Caleb Alves M.D. (transmitted by agent of provider Leanne Israel) Address [address] [place] [address] Care Team Providers Name Role Phone Kristian Bailon MD - Care Team Information Commercial Front Load Operator [phone] Otolaryngology Sreekanth Livingston MD - Urology Care Team Information Commercial Front Load Operator [phone] Mckinley Nieves MD - Orthopaedic Care Team Information Commercial Front Load Operator Surgery Roxie Weston M.D. - Family Medicine Care Team Information Commercial Front Load Operator [phone] Problems Active Problems Provider Date Mixed hyperlipidemia [...] Oil + D3 1 capsule daily Unknown [id number] Capsules Saw [place] 1 po hs 120caps Unknown 450mg Capsules Centrum Silver Ultra 1 po qd Unknown Mens Tablets Ascorbic Acid 1 by mouth every day Unknown 500mg Tablets Magnesium Oxide 2 tab by mouth every Unknown 400mg day Tablets Immunizations CPT Code Status Date Vaccine Reaction Lot # 11244 Given 04/19/2019 Pneumococcal Conjugate 525np Vaccine 13 Valent For Intramuscular Use 74859 Given 11/03/2017 Influenza Virus Vaccine, no immedite reaction [id number] Quadrivalent, Split, noted .. hh Preservative Free 08862 Given 12/01/2015 Zoster (Zostavax) [id number] 32462 Given 12/01/2015 Influenza Virus Vaccine, x7yr2 Quadrivalent, Split, Preservative Free 80337 Given 10/27/2015 Tdap - [id number] Tetanus/Diptheria/Acellular Pertussis Q2038 Given 07/10/2012 Fluzone Vaccine [id number] 33204 Given 09/23/2011 Influenza Virus 3Yrs & Over [id number] Vital Signs Date Vital Result Comment 04/19/2019 [...] Result H/L Range Note Laboratory test 01/01/2020 [facility] Ammonia 49 mcmol/L Normal 16-53 finding [address] [place] [address] [phone] Vitamin B1 (Whole Blood) 127 nmol/L 70-180 1 Basic Metabolic 01/01/2020 [facility] Sodium 137 mmol/L Normal 135-145 Panel [address] [place] [address] [phone] Potassium 4.1 mmol/L Normal 3.5-5.0 Chloride 104 mmol/L Normal 101-111 Co2 Carbon Dioxide 20 mmol/L Low 22-32 Anion Gap 13 mmol/L High 2-11 Glucose 83 mg/dL Normal 70-100 Blood Urea Nitrogen 12 mg/dL Normal 6-24 Creatinine 0.68 mg/dL Normal 0.67-1.17 BUN/Creatinine Ratio 17.6 Normal 8-20 Calcium 7.9 mg/dL Low 8.6-10.3 Egfr Non- 117.0 >60 Egfr 141.6 >60 2 CBC Auto 01/01/2020 [facility] White Blood 11.4 10^3/uL High 3.5-10.[address] [place] [address] [phone] Red Blood Count 3.89 10^6/uL Low 4.18-5.48 [...] Blood Cells % 0.0 Comp Metabolic 01/01/2020 [facility] Sodium 138 mmol/L Normal 135-[address] [place] [address] [phone] Potassium 3.9 mmol/L Normal 3.5-5.0 Chloride 99 [...] Egfr 124.6 >60 3 Laboratory test 01/01/2020 [facility] Alcohol < 10 mg/dL Normal <10 finding [address] [place] [address] [phone] TSH (Thyroid Stim Horm) 0.54 mcIU/mL Normal 0.34-5.60 Acetaminophen < 15 g/mL 4 Salicylate < 2.50 mg/dL <30 Osmolality Serum 294 mOsm/kg Normal 275-295 1 ADDITIONAL INFORMATION This test was developed and its performance characteristics determined by [facility] in a manner consistent with CLIA requirements. This test has not been cleared or approved by the U.S. Food and Drug Administration. Test Performed by: [facility] - [facility] [address] [place] [address] Poultry Vaccinator: Julien Colin M.D. Ph.D.; CLIA# [id number] 2 Because ethnic data is not always [...] ug/mL Procedures Date Code Description Status 01/05/2020 84293 ECHO Transthorasic Realtime 2D W Doppler & Color Flow Completed Hosp 03/11/2018 583604367 Diabetic Retinal Eye Exam Completed 03/06/2017 81609407 Colonoscopy Completed 08/20/2006 61249638 Colonoscopy Completed Medical Devices Description No Information Available Encounters Type Date Location Provider Dx Diagnosis Office Visit 01/06/2020 [facility] Winter Winkler, M48.02 Spinal stenosis, 2:06p lois Olsen DO cervical region Hospitalists R26.0 Ataxic gait Office Visit 01/05/2020 2:06p [facility] Honey M48.02 Spinal Assoclois PA-C stenosis, Hospitalists cervical region R26.0 Ataxic gait E83.42 Hypomagnesemia Office Visit 01/04/2020 [facility] M48.02 Spinal 2:05p lois Olsen M.D. stenosis, Hospitalists cervical region M50.021 Cervical disc disorder at C4-C5 level with myelopathy R26.0 Ataxic gait I10 Essential (primary) hypertension Office Visit 01/03/2020 [facility] M48.02 Spinal 2:05p Assoc,lois Alves M.D. stenosis, Hospitalists cervical region R26.0 Ataxic gait F10.21 Alcohol dependence, in remission I10 Essential (primary) hypertension Office Visit 01/02/2020 2:04p [facility] Caleb R26.0 Ataxic gait Assoc,lois Alves M.D. Hospitalists R53.1 Weakness R25.1 Tremor, unspecified I10 Essential (primary) hypertension Office Visit 01/01/2020 2:03p [facility] Susan Clement, R29.6 Repeated falls Assoc,pc [...] neuropathiesFollow up:Follow up 1 week after NS vkgioomxfypO46.11 Alcohol abuse , in bmdezfevkM21.5x9S Traumatic subdural hemorrhage with loss of consciousness of unspecified duration, cjnfffrY73.2 Degeneration of nervous system due to fwsnotzO37.129D Central cord syndrome at unspecified level of cervical spinal cord, subsequent encounterReferral:Tee Nolasco M.D., Surgery, QxsoqcxilaffP77.2 Paresthesia of skin Functional Status Description No Information Available Mental Status Description No Information Available Referrals Description No Information Available
--- OUTSIDE RECORDS SUMMARY | 2020-02-10 09:26 | XMS REPORT | Continuity of Care Document ---
:1955 External Reference #:[id number] Author Name Mita Ashley M.D. (transmitted by agent of provider Annia Fulton) Address [address] [place] [address] Care Team Providers Name Role Phone Kristian Bailon MD - Care Team Information Relationship Consultant [phone] Otolaryngology Sreekanth Livingston MD - Urology Care Team Information Relationship Consultant [phone] Mckinley Nieves MD - Orthopaedic Care Team Information Relationship Consultant [phone] Surgery Roxie Weston M.D. - Family Medicine Care Team Information Relationship Consultant Problems Active Problems Provider Date Mixed hyperlipidemia [...] Oil + D3 1 capsule daily Unknown [id number] Capsules Galileo [place] 1 po hs 120caps Unknown 450mg Capsules Centrum Silver Ultra 1 po qd Unknown Mens Tablets Ascorbic Acid 1 by mouth every day Unknown 500mg Tablets Magnesium Oxide 2 tab by mouth every Unknown 400mg day Tablets Immunizations CPT Code Status Date Vaccine Reaction Lot # [id number] Given 04/19/2019 Pneumococcal Conjugate 525np Vaccine 13 Valent For Intramuscular Use 77787 Given 11/03/2017 Influenza Virus Vaccine, no immedite reaction [id number] Quadrivalent, Split, noted .. hh Preservative Free 28720 Given 12/01/2015 Zoster (Zostavax) [id number] 97856 Given 12/01/2015 Influenza Virus Vaccine, x7yr2 Quadrivalent, Split, Preservative Free 59022 Given 10/27/2015 Tdap - [id number] Tetanus/Diptheria/Acellular Pertussis Q2038 Given 07/10/2012 Fluzone Vaccine [id number] 92064 Given 09/23/2011 Influenza Virus 3Yrs & Over [id number] Vital Signs Date Vital Result Comment 04/19/2019 [...] Result H/L Range Note Laboratory test 01/01/2020 [facility] Ammonia 49 mcmol/L Normal 16-53 finding [address] [place] [address] [phone] Vitamin B1 (Whole Blood) 127 nmol/L 70-180 1 Basic Metabolic 01/01/2020 [facility] Sodium 137 mmol/L Normal 135-145 Panel [address] [place] [address] [phone] Potassium 4.1 mmol/L Normal 3.5-5.0 Chloride 104 mmol/L Normal 101-111 Co2 Carbon Dioxide 20 mmol/L Low 22-32 Anion Gap 13 mmol/L High 2-11 Glucose 83 mg/dL Normal 70-100 Blood Urea Nitrogen 12 mg/dL Normal 6-24 Creatinine 0.68 mg/dL Normal 0.67-1.17 BUN/Creatinine Ratio 17.6 Normal 8-20 Calcium 7.9 mg/dL Low 8.6-10.3 Egfr Non- 117.0 >60 Egfr 141.6 >60 2 CBC Auto 01/01/2020 [facility] White Blood 11.4 10^3/uL High 3.5-10.[address] [place] [address] [phone] Red Blood Count 3.89 10^6/uL Low 4.18-5.48 [...] Blood Cells % 0.0 Comp Metabolic 01/01/2020 [facility] Sodium 138 mmol/L Normal 135-[address] [place] [address] [phone] Potassium 3.9 mmol/L Normal 3.5-5.0 Chloride 99 [...] Egfr 124.6 >60 3 Laboratory test 01/01/2020 [facility] Alcohol < 10 mg/dL Normal <10 finding [address] [place] [address] [phone] TSH (Thyroid Stim Horm) 0.54 mcIU/mL Normal 0.34-5.60 Acetaminophen < 15 g/mL 4 Salicylate < 2.50 mg/dL <30 Osmolality Serum 294 mOsm/kg Normal 275-295 1 ADDITIONAL INFORMATION This test was developed and its performance characteristics determined by [facility] in a manner consistent with CLIA requirements. This test has not been cleared or approved by the U.S. Food and Drug Administration. Test Performed by: [facility] - [facility] [address] [place] [address] Insole Lip Turner: Julien Colin M.D. Ph.D.; CLIA# [id number] 2 Because ethnic data is not always [...] ug/mL Procedures Date Code Description Status 01/05/2020 20186 ECHO Transthorasic Realtime 2D W Doppler & Color Flow Completed Hosp 03/11/2018 253270009 Diabetic Retinal Eye Exam Completed 03/06/2017 67533764 Colonoscopy Completed 08/20/2006 72759864 Colonoscopy Completed Medical Devices Description No Information Available Encounters Description No Information Available Assessments Date Code Description Provider 01/05/2020 I10 Essential (primary) hypertension Mita Ashley M.D. Plan of Treatment 03/27/2018 - Jack Martinez M.D.G60.8 Other hereditary and idiopathic neuropathiesFollow up:Follow up 1 week after NS qxarbnmvxddF85.11 Alcohol abuse , in mmcjbbkwuL69.5x9S Traumatic subdural hemorrhage with loss of consciousness of unspecified duration, zpeutfcR00.2 Degeneration of nervous system due to iomqokyW93.129D Central cord syndrome at unspecified level of cervical spinal cord, subsequent encounterReferral:Tee Nolasco M.D., Surgery, XxekhmkdpiuwH82.2 Paresthesia of skin Functional Status Description No Information Available Mental Status Description No Information Available Referrals Description No Information Available
--- OUTSIDE RECORDS SUMMARY | 2020-02-10 09:26 | XMS REPORT | Continuity of Care Document ---
:1955 External Reference #:[id number] Author Name Caleb Alves M.D. (transmitted by agent of provider Leanne Israel) Address [address] [place] [address] Care Team Providers Name Role Phone Kristian Bailon MD - Care Team Information Machine Inspector [phone] Otolaryngology Sreekanth Livingston MD - Urology Care Team Information Machine Inspector [phone] Mckinley Nieves MD - Orthopaedic Care Team Information Machine Inspector [phone] Surgery Roxie Weston M.D. - Family Medicine Care Team Information Machine Inspector Problems Active Problems Provider Date Mixed hyperlipidemia [...] Oil + D3 1 capsule daily Unknown [id number] Capsules Saw [place] 1 po hs 120caps Unknown 450mg Capsules Centrum Silver Ultra 1 po qd Unknown Mens Tablets Ascorbic Acid 1 by mouth every day Unknown 500mg Tablets Magnesium Oxide 2 tab by mouth every Unknown 400mg day Tablets Immunizations CPT Code Status Date Vaccine Reaction Lot # 81270 Given 04/19/2019 Pneumococcal Conjugate 525np Vaccine 13 Valent For Intramuscular Use 75705 Given 11/03/2017 Influenza Virus Vaccine, no immedite reaction [id number] Quadrivalent, Split, noted .. hh Preservative Free 56986 Given 12/01/2015 Zoster (Zostavax) [id number] 80481 Given 12/01/2015 Influenza Virus Vaccine, x7yr2 Quadrivalent, Split, Preservative Free 43247 Given 10/27/2015 Tdap - [id number] Tetanus/Diptheria/Acellular Pertussis Q2038 Given 07/10/2012 Fluzone Vaccine [id number] 35944 Given 09/23/2011 Influenza Virus 3Yrs & Over [id number] Vital Signs Date Vital Result Comment 04/19/2019 [...] Result H/L Range Note Laboratory test 01/01/2020 [facility] Ammonia 49 mcmol/L Normal 16-53 finding [address] [place] [address] [phone] Vitamin B1 (Whole Blood) 127 nmol/L 70-180 1 Basic Metabolic 01/01/2020 [facility] Sodium 137 mmol/L Normal 135-145 Panel [address] [place] [address] [phone] Potassium 4.1 mmol/L Normal 3.5-5.0 Chloride 104 mmol/L Normal 101-111 Co2 Carbon Dioxide 20 mmol/L Low 22-32 Anion Gap 13 mmol/L High 2-11 Glucose 83 mg/dL Normal 70-100 Blood Urea Nitrogen 12 mg/dL Normal 6-24 Creatinine 0.68 mg/dL Normal 0.67-1.17 BUN/Creatinine Ratio 17.6 Normal 8-20 Calcium 7.9 mg/dL Low 8.6-10.3 Egfr Non- 117.0 >60 Egfr 141.6 >60 2 CBC Auto 01/01/2020 [facility] White Blood 11.4 10^3/uL High 3.5-10.[address] [place] [address] [phone] Red Blood Count 3.89 10^6/uL Low 4.18-5.48 [...] Blood Cells % 0.0 Comp Metabolic 01/01/2020 [facility] Sodium 138 mmol/L Normal 135-[address] [place] [address] [phone] Potassium 3.9 mmol/L Normal 3.5-5.0 Chloride 99 [...] Egfr 124.6 >60 3 Laboratory test 01/01/2020 [facility] Alcohol < 10 mg/dL Normal <10 finding [address] [place] [address] [phone] TSH (Thyroid Stim Horm) 0.54 mcIU/mL Normal 0.34-5.60 Acetaminophen < 15 g/mL 4 Salicylate < 2.50 mg/dL <30 Osmolality Serum 294 mOsm/kg Normal 275-295 1 ADDITIONAL INFORMATION This test was developed and its performance characteristics determined by [facility] in a manner consistent with CLIA requirements. This test has not been cleared or approved by the U.S. Food and Drug Administration. Test Performed by: [facility] - [facility] [address] [place] [address] Suction Worker: Julien Colin M.D. Ph.D.; CLIA# [id number] 2 Because ethnic data is not always [...] ug/mL Procedures Date Code Description Status 01/05/2020 96280 ECHO Transthorasic Realtime 2D W Doppler & Color Flow Completed Hosp 03/11/2018 748050071 Diabetic Retinal Eye Exam Completed 03/06/2017 26782342 Colonoscopy Completed 08/20/2006 91132286 Colonoscopy Completed Medical Devices Description No Information Available Encounters Type Date Location Provider Dx Diagnosis Office Visit 01/06/2020 [facility] Winter Winkler, M48.02 Spinal stenosis, 2:06p lois Olsen DO cervical region Hospitalists R26.0 Ataxic gait Office Visit 01/05/2020 2:06p [facility] Honey M48.02 Spinal Assoclois PA-C stenosis, Hospitalists cervical region R26.0 Ataxic gait E83.42 Hypomagnesemia Office Visit 01/04/2020 [facility] M48.02 Spinal 2:05p lois Olsen M.D. stenosis, Hospitalists cervical region M50.021 Cervical disc disorder at C4-C5 level with myelopathy R26.0 Ataxic gait I10 Essential (primary) hypertension Office Visit 01/03/2020 [facility] M48.02 Spinal 2:05p Assoc,lois Alves M.D. stenosis, Hospitalists cervical region R26.0 Ataxic gait F10.21 Alcohol dependence, in remission I10 Essential (primary) hypertension Office Visit 01/02/2020 2:04p [facility] Caleb R26.0 Ataxic gait Assoc,lois Alves M.D. Hospitalists R53.1 Weakness R25.1 Tremor, unspecified I10 Essential (primary) hypertension Office Visit 01/01/2020 2:03p [facility] Susan Clement, R29.6 Repeated falls Assoc,pc N.P. [...] neuropathiesFollow up:Follow up 1 week after NS ykppvkgfemnA33.11 Alcohol abuse , in jjfhpvamkV34.5x9S Traumatic subdural hemorrhage with loss of consciousness of unspecified duration, csrirljC76.2 Degeneration of nervous system due to txnvbnhR32.129D Central cord syndrome at unspecified level of cervical spinal cord, subsequent encounterReferral:Tee Nolasco M.D., Surgery, LovtletxpuprP72.2 Paresthesia of skin Functional Status Description No Information Available Mental Status Description No Information Available Referrals Description No Information Available
--- OUTSIDE RECORDS SUMMARY | 2020-02-10 09:26 | XMS REPORT ---
:1955 Author Organization [facility] Care Team Providers Name Role Phone Unavailable Unavailable Unavailable Problems This patient has no known problems. Allergies, Adverse Reactions, Alerts Allergy Name Allergy Status Severity Reaction(s) Onset Inactive Treating Comments Type Date Date Clinician citalopram Unknown Active Unknown Reaction Citlalli Unknown 3-30 (Elisa) Darci [id number] hydrochlorithia Unknown Active Unknown Reaction Citlalli zide Unknown 3-30 (Elisa) Darci [id number] lisinopril Unknown Active Unknown Reaction 0 Citlalli Unknown 3-30 (Elisa) Darci [id number] Medications Ordered Filled Start Stop Current Ordering Indication Dosage Frequency Signature Comments Components Medication Medication Date Date Medication? Clinician (SIG) Name Name No Known No Known No None None None Medications Medications For This For This Patient Patient Procedures This patient has no known procedures. Results This patient has no known results.
--- OUTSIDE RECORDS SUMMARY | 2020-02-10 09:26 | XMS REPORT | Continuity of Care Document ---
:1955 External Reference #:[id number] Author Name Winter Winkler DO (transmitted by agent of provider Leanne Israel) Address [address] [place] [address] Care Team Providers Name Role Phone Kristian Bailon MD - Care Team Information Hand Ornament Maker [phone] Otolaryngology Sreekanth Livingston MD - Urology Care Team Information Hand Ornament Maker [phone] Mckinley Nieves MD - Orthopaedic Care Team Information Hand Ornament Maker Surgery Roxie Weston M.D. - Family Medicine Care Team Information Hand Ornament Maker Problems Active Problems Provider Date Mixed hyperlipidemia [...] Oil + D3 1 capsule daily Unknown [id number]-Iteb Capsules Saw [place] 1 po hs 120caps Unknown 450mg Capsules Centrum Silver Ultra 1 po qd Unknown Mens Tablets Ascorbic Acid 1 by mouth every day Unknown 500mg Tablets Magnesium Oxide 2 tab by mouth every Unknown 400mg day Tablets Immunizations CPT Code Status Date Vaccine Reaction Lot # [id number] Given 04/19/2019 Pneumococcal Conjugate [id number] Vaccine 13 Valent For Intramuscular Use 48206 Given 11/03/2017 Influenza Virus Vaccine, no immedite reaction [id number] Quadrivalent, Split, noted .. hh Preservative Free 15235 Given 12/01/2015 Zoster (Zostavax) [id number] 28402 Given 12/01/2015 Influenza Virus Vaccine, [id number] Quadrivalent, Split, Preservative Free [id number] Given 10/27/2015 Tdap - [id number] Tetanus/Diptheria/Acellular Pertussis [id number] Given 07/10/2012 Fluzone Vaccine [id number] 68906 Given 09/23/2011 Influenza Virus 3Yrs & Over [id number] Vital Signs Date Vital Result Comment 04/19/2019 [...] Result H/L Range Note Laboratory test 01/01/2020 [facility] Ammonia 49 mcmol/L Normal 16-53 finding [address] [place] [address] [phone] Vitamin B1 (Whole Blood) 127 nmol/L 70-180 1 Basic Metabolic 01/01/2020 [facility] Sodium 137 mmol/L Normal 135-145 Panel [address] [place] [address] [phone] Potassium 4.1 mmol/L Normal 3.5-5.0 Chloride 104 mmol/L Normal 101-111 Co2 Carbon Dioxide 20 mmol/L Low 22-32 Anion Gap 13 mmol/L High 2-11 Glucose 83 mg/dL Normal 70-100 Blood Urea Nitrogen 12 mg/dL Normal 6-24 Creatinine 0.68 mg/dL Normal 0.67-1.17 BUN/Creatinine Ratio 17.6 Normal 8-20 Calcium 7.9 mg/dL Low 8.6-10.3 Egfr Non- 117.0 >60 Egfr 141.6 >60 2 CBC Auto 01/01/2020 [facility] White Blood 11.4 10^3/uL High 3.5-10.[address] [place] [address] [phone] Red Blood Count 3.89 10^6/uL Low 4.18-5.48 [...] Blood Cells % 0.0 Comp Metabolic 01/01/2020 [facility] Sodium 138 mmol/L Normal 135-[address] [place] [address] [phone] Potassium 3.9 mmol/L Normal 3.5-5.0 Chloride 99 [...] Egfr 124.6 >60 3 Laboratory test 01/01/2020 [facility] Alcohol < 10 mg/dL Normal <10 finding [address] [place] [address] [phone] TSH (Thyroid Stim Horm) 0.54 mcIU/mL Normal 0.34-5.60 Acetaminophen < 15 g/mL 4 Salicylate < 2.50 mg/dL <30 Osmolality Serum 294 mOsm/kg Normal 275-295 1 ADDITIONAL INFORMATION This test was developed and its performance characteristics determined by [facility] in a manner consistent with CLIA requirements. This test has not been cleared or approved by the U.S. Food and Drug Administration. Test Performed by: [facility] [address] [place] [address] Health Information Technologist: Julien Colin M.D. Ph.D.; CLIA# [id number] 2 Because ethnic data is not always [...] ug/mL Procedures Date Code Description Status 01/05/2020 55781 ECHO Transthorasic Realtime 2D W Doppler & Color Flow Completed Hosp 03/11/2018 [id number] Diabetic Retinal Eye Exam Completed 03/06/2017 [id number] Colonoscopy Completed 08/20/2006 [id number] Colonoscopy Completed Medical Devices Description No Information Available Encounters Type Date Location Provider Dx Diagnosis Office Visit 01/06/2020 [facility] Winter Winkler, M48.02 Spinal stenosis, 2:06p lois Olsen DO cervical region Hospitalists R26.0 Ataxic gait Office Visit 01/05/2020 2:06p [facility] Honey M48.02 Spinal Assoclois PA-C stenosis, Hospitalists cervical region R26.0 Ataxic gait E83.42 Hypomagnesemia Office Visit 01/04/2020 [facility] M48.02 Spinal 2:05p lois Olsen M.D. stenosis, Hospitalists cervical region M50.021 Cervical disc disorder at C4-C5 level with myelopathy R26.0 Ataxic gait I10 Essential (primary) hypertension Office Visit 01/03/2020 [facility] M48.02 Spinal 2:05p Assoc,lois Alves M.D. stenosis, Hospitalists cervical region R26.0 Ataxic gait F10.21 Alcohol dependence, in remission I10 Essential (primary) hypertension Office Visit 01/02/2020 2:04p [facility] Caleb R26.0 Ataxic gait Assoc,lois Alves M.D. Hospitalists R53.1 Weakness R25.1 Tremor, unspecified I10 Essential (primary) hypertension Office Visit 01/01/2020 2:03p [facility] Susan Clement, R29.6 Repeated falls Assoc,pc N.P. [...] neuropathiesFollow up:Follow up 1 week after NS [id number] Alcohol abuse , in rionoilebR08.5x9S Traumatic subdural hemorrhage with loss of consciousness of unspecified duration, meqwijlU73.2 Degeneration of nervous system due to [id number] Central cord syndrome at unspecified level of cervical spinal cord, subsequent encounterReferral:Tee Nolasco M.D., Surgery, QfjtreeezsqvW32.2 Paresthesia of skin Functional Status Description No Information Available Mental Status Description No Information Available Referrals Description No Information Available
--- OUTSIDE RECORDS SUMMARY | 2020-02-10 09:26 | XMS REPORT ---
:1955 Author Organization [facility] Care Team Providers Name Role Phone Unavailable Unavailable Unavailable Problems Condition Condition Condition Status Onset Resolution Last Treating Comments Name Details Category Date Date Treatment Clinician Date Wernicke's Wernicke's Diagnosis Active Annia encephalopa encephalopa 3-23 [place] thy thy Unspecified Unspecified Diagnosis Active Annia cord cord 3- [place] compression compression Allergies, Adverse Reactions, Alerts Allergy Name Allergy Status Severity Reaction(s) Onset Inactive Treating Comments Type Date Date Clinician citalopram Unknown Active Unknown Reaction Citlalli Unknown 3-30 (Elisa) Darci [id number] hydrochlorithia Unknown Active Unknown Reaction Citlalli zide Unknown 3-30 (Elisa) Darci [id number] lisinopril Unknown Active Unknown Reaction Citlalli Unknown 3-30 (Elisa) Darci [id number] Medications Ordered Filled Start Stop Current Ordering Indication Dosage Frequency Signature Comments Components Medication Medication Date Date Medication? Clinician (SIG) Name Name No Known No Known No None None None Medications Medications For This For This Patient Patient Procedures This patient has no known procedures. Results This patient has no known results.
--- OUTSIDE RECORDS SUMMARY | 2020-02-10 09:26 | XMS REPORT ---
:1955 Author Organization [facility] Care Team Providers Name Role Phone Unavailable [...] Unknown Reaction Citlalli Unknown 3-30 (Elisa) Darci [id number] hydrochlorithia Unknown Active Unknown Reaction Citlalli zide Unknown 3-30 (Elisa) Darci [id number] lisinopril Unknown Active Unknown Reaction Citlalli Unknown 3-30 (Elisa) Darci [id number] Medications Ordered Filled Start Stop Current Ordering Indication Dosage Frequency Signature Comments Components Medication Medication Date Date Medication? Clinician (SIG) Name Name No Known No Known No None None None Medications Medications For This For This Patient Patient Procedures This patient has no known procedures. Results This patient has no known results.
[2020-02-10 10:00] LABS: ABS Basophils 0.1 10^3/ul (0-0.2); ABS Lymphocytes 0.8 10^3/ul (1.0-4.8); ABS Monocytes 0.4 10^3/ul (0-0.8); ABS Neutrophils 4.9 10^3/ul (1.5-7.7); Eosinophil % 0.1 %; Hematocrit 43 % (42-52); Hemoglobin 14.8 g/dL (14.0-18.0); Lymphocyte % 13.6 %; Mean Corpuscular HGB Conc 34 g/dL (31-36); Mean Corpuscular Hemoglobin 35 pg (27-31); Mean Corpuscular Volume 102 fL (80-94); Mean Platelet Volume 6.3 fL (7.4-10.4); Platelet Count 433 10^3/uL (150-450); Red Blood Count 4.26 10^6 /uL (4.18-5.48); Red Cell Distribution Width 14 % (10-15); White Blood Count 6.2 10^3/uL (3.5-10.8)
[2020-02-10 10:16] LABS: Albumin 3.9 g/dL (3.2-5.2); Albumin/Globulin Ratio 1.1 (1-3); BUN/Creatinine Ratio 12.5 (8-20); Calcium 8.8 mg/dL (8.6-10.3); EGFR African American 132.2 (>60); EGFR Non-African American 109.2 (>60); Globulin 3.4 g/dL (2-4); Potassium 3.4 mmol/L (3.5-5.0); Total Bilirubin 0.5 mg/dL (0.2-1.0); Total Protein 7.3 g/dL (6.4-8.9)
[2020-02-10 10:22] LABS: INR 1.03 (0.82-1.09)
[2020-02-10 12:19] VITALS: BP 153/77
== END 2020-02-10 12:58 | disposition left against medical advice (07) ==
LOC: ED 09:15
DX: M50.00 Cervical disc disorder with myelopathy, unspecified cervical region (principal); M48.02 Spinal stenosis, cervical region; R60.9 Edema, unspecified; I10 Essential (primary) hypertension; Z86.79 Personal history of other diseases of the circulatory system; E78.00 Pure hypercholesterolemia, unspecified; K21.9 Gastro-esophageal reflux disease without esophagitis; F41.9 Anxiety disorder, unspecified; Z72.0 Tobacco use
CPT/HCPCS: 36415; 80053; 80320; 82140; 83880; 85025; 85610; 99283; G0480